=== PATIENT | male | born 1935 | race Caucasian/White ===

== ENCOUNTER 2016-08-18 09:17 | Inpatient (IN) | payer OTHER, MEDICARE ==
[~2016-08-18] VITALS: Ht 177.8 cm; Wt 117.0 kg
[~2016-08-18 09:17] MED LIST: ASPCH81 PO; CHOL100010 PO; FINA5TAB PO; PRAV20TA PO; PRED1SUS3 OPL
[2016-08-18] MEDS ORDERED: KETOROLAC TROMETHAMINE 30 MG/ML VIAL IV STA (10:03)
--- NOTE | 2016-08-18 10:08 | EMERGENCY ROOM VISIT NOTE ---
History Report prepared by Candi: Amaury Britt Under the Supervision of: Dr. Abdirahman Borrero M.D. First contact with patient: 09:56 Chief Complaint: BACK PAIN Stated Complaint: BACK PAIN History of Present Illness The patient is an 81 year old male who presents to the Emergency Room with complaints of persistent back pain for the past few weeks. The patient notes that the pain is in his lower back across both sides. This discomfort radiates down his right leg. The patient rates his discomfort as a 4 out of 10 in severity while he is resting. The discomfort is significantly worsened with movement. He notes that this morning he was using a heating pad and tried to stand up. When he did, his legs gave out and he fell down. He denies numbness, incontinence, constipation, chest pain, abdominal pain, feeling lightheaded or dizzy. The patient saw his PCP yesterday and was supposed to start therapy later this week. However, he presented to the ED today for further evaluation after his legs gave out this morning. Source of History: patient Onset: the past few weeks Position: back (lower) Symptom Intensity: 4/10 in severity Timing: other (persistent) Modifying Factors (Worsening): movement Associated Symptoms: No abdominal pain, No chest pain, No numbness Note: Other associated symptoms: radiation down right leg, fall Denies: incontinence, constipation, feeling lightheaded or dizzy Review of Systems See HPI for pertinent positives & negatives. A total of 10 systems reviewed and were otherwise negative. Past Medical & Surgical Medical Problems: (1) BPH (benign prostatic hyperplasia) (2) Compression fracture (3) Fall (4) HLD (hyperlipidemia) (5) Hypertension Surgical Problems: (1) H/O hernia repair (2) H/O vertebroplasty (3) History of total knee arthroplasty (4) Hx of cholecystectomy Family History No pertinent family history Social History Smoking Status: Never Smoker Drug Use: none Marital Status: Housing Status: lives alone Occupation Status: retired Current/Historical Medications Scheduled Aspirin (Aspirin Ec), 81 MG PO HS Cholecalciferol (Vitamin D3), 1 TAB PO DAILY Finasteride (Proscar), 5 MG PO HS Aemhvzmk-Bzjatzpidugv-Lsciilzt (Artificial Tears), 1 DROP OPB BID Ibuprofen Tab (Advil), 200-600 MG PO Q4H Metoprolol Tartrate (Lopressor) (Lopressor), 50 MG PO BID Multivitamin (Multivitamin), 1 TAB PO DAILY Pravastatin (Pravachol ), 20 MG PO HS Scheduled PRN Amoxicillin (Amoxil), 500 MG PO DAILY PRN for 4 TAB PRIOR TO DENTAL Allergies Coded Allergies: No Known Allergies (Verified , 08/18/16) Physical Exam Vital Signs Date Time Temp Pulse Resp B/P Pulse Ox O2 Delivery O2 Flow Rate FiO2 08/18/16 13:25 96 Room Air 08/18/16 13:10 71 16 176/74 08/18/16 11:11 73 16 177/92 96 08/18/16 09:38 69 08/18/16 09:28 36.8 71 16 182/84 96 Room Air Physical Exam General: Non ill-appearing older male, no acute distress. HEENT: Normal cephalic atraumatic. Pupils are equal round and reactive to light. Extraocular movements are intact. Oropharynx is pink with moist mucous membranes. No swelling of the mouth lips or tongue. Neck: Supple with a midline trachea. No meningeal signs or stiffness, no JVD or bruits. No Stridor. Chest: Clear to auscultation bilaterally. No wheezes or rhonchi. No increased work of breathing. Heart: regular rate and rhythm. Abdomen: Soft nontender, nondistended without rebound guarding or rigidity. Extremities: No cyanosis or clubbing. No calf tenderness or assymetry. Mild swelling and bruising of his right foot. Trace bilateral lower extremity edema Spine/Back. Tenderness to palpation along SI joint and lower spine. Skin: Good turgor without rashes. Neurologic exam: Cranial nerves two through 12 are intact. Motor and sensation are intact and symmetrical throughout. Medical Decision & Procedures ER Provider Diagnostic Interpretation: CT results as stated below per my review and radiologist interpretation: CT PELVIS NO IV/ORAL CONT (CT) CT DOSE: CLINICAL HISTORY: Pelvic and sacroiliac joint pain status post trauma TECHNIQUE: Helical images were acquired in the transverse plane area reformatted imaging was performed. COMPARISON STUDY: None. FINDINGS: There is sigmoid diverticulosis. There is no pathologic adenopathy. There is no free pelvic fluid. There is acute superior L5 compression fracture. There is 30% loss in height. There is minimal retropulsion. There is L3-4, L4-5, and L5-S1 spinal stenosis. There is no evidence of SI joint diastases. No SI joint fractures are visualized. No sacral fractures are visualized. No hip fractures are visualized. IMPRESSION: 1. Acute superior endplate L5 compression fracture with 30% loss in height and minimal retropulsion 2. No hip or sacral fractures identified Electronically signed by: Ranjeet Caballero M.D. 08/18/2016 11:20 AM Dictated Date/Time: 08/18/2016 11:[address] SCAN OF THE LUMBAR SPINE WITHOUT IV CONTRAST CLINICAL HISTORY: Fall with low back pain. COMPARISON STUDY: CT scan of the lumbar spine dated 05/17/2007. TECHNIQUE: CT scan of the lumbar spine is performed from the lower thoracic spine to the sacrum. Images reviewed in the axial, sagittal, and coronal planes. IV contrast was not administered for this examination. CT DOSE: 3051.01 mGy.cm FINDINGS: The skeletal structures are osteopenic. There is a mild acute superior endplate compression fracture of L5. Small fragments are retropulsed by up to 4 mm. This causes minimal acquired compromise of the central canal. Mild paravertebral edema is seen at this level. No additional acute fracture is seen. Vertebral body height is otherwise maintained throughout the lumbar spine. Alignment is preserved. A chronic compression deformity of T11 is partially imaged with evidence of previous vertebroplasty. The transverse and spinous processes are intact. There is no spondylolysis. Small anterior osteophytes are seen throughout. No lytic or blastic lesions are identified. There are likely chronic/healed left transverse process fractures of L1 and L2. There is mild degenerative disc space narrowing at L5-S1. The remaining disc spaces appear preserved. No large disc herniation is identified. Mild facet arthropathy is seen in the mid to lower lumbar region. The visualized sacrum and bony pelvis appear intact. Mild degenerative change and vacuum phenomenon is noted in the sacroiliac joints. There is mild fatty atrophy of the paraspinous musculature. Moderate atherosclerotic calcification is noted in the abdominal aorta. 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 This is similar to the 2007 examination. IMPRESSION: 1. There is a mild acute superior endplate compression fracture of L5. Small fragments are retropulsed by up to 4 mm. 2. No additional acute fracture is seen. 3. Osteopenia and mild spondylotic change as above. 4. A chronic compression deformity of T11 with evidence of previous vertebroplasty is noted. Dictated: 08/18/2016 11:23 AM Transcribed: 08/18/2016 11:33 AM Sofia Electronically signed by: Roger Neal M.D. 08/18/2016 11:39 AM Dictated Date/Time: 08/18/2016 11:23 AM Laboratory Results Test 08/18/16 10:20 08/18/16 10:45 Immature Granulocyte % (Auto) 1.1 % White Blood Count 12.77 K/uL (4.8-10.8) Red Blood Count 5.64 M/uL (4.7-6.1) Hemoglobin 16.2 g/dL (14.0-18.0) Hematocrit 46.9 % (42-52) Mean Corpuscular Volume 83.2 fL (80-100) Mean Corpuscular Hemoglobin 28.7 pg (25-34) Mean Corpuscular Hemoglobin Concent 34.5 g/dl (32-36) Platelet Count 177 K/uL (130-400) Mean Platelet Volume 9.7 fL (7.4-10.4) Neutrophils (%) (Auto) 72.2 % Lymphocytes (%) (Auto) 11.0 % Monocytes (%) (Auto) 13.2 % Eosinophils (%) (Auto) 2.0 % Basophils (%) (Auto) 0.5 % Neutrophils # (Auto) 9.23 K/uL (1.4-6.5) Lymphocytes # (Auto) 1.40 K/uL (1.2-3.4) Monocytes # (Auto) 1.69 K/uL (0.11-0.59) Eosinophils # (Auto) 0.25 K/uL (0-0.5) Basophils # (Auto) 0.06 K/uL (0-0.2) Immature Granulocyte # (Auto) 0.14 K/uL (0.00-0.02) Urine Color YELLOW Urine Appearance CLEAR (CLEAR) Urine pH 8.0 (4.5-7.5) Urine Specific [place] 1.017 (1.000-1.030) Urine Protein NEG (NEG) Urine Glucose (UA) NEG (NEG) Urine Ketones NEG (NEG) Urine Occult Blood NEG (NEG) Urine Nitrite NEG (NEG) Urine Bilirubin NEG (NEG) Urine Urobilinogen NEG (NEG) Urine Leukocyte Esterase NEG (NEG) Laboratory studies as stated above per my review. Medications Administered Medications (Trade) Dose Ordered Sig/Pat Route Start Time Stop Time Status Last Admin Dose Admin Ketorolac Tromethamine (Toradol Inj) 15 mg NOW STAT IV 08/18/16 10:03 08/18/16 10:06 DC 08/18/16 10:31 15 MG Ketorolac Tromethamine (Toradol Inj) 15 mg ONE STAT IV 08/18/16 12:38 08/18/16 12:40 DC 08/18/16 13:49 15 MG Oxycodone/ Acetaminophen (Percocet 5-325mg Tab) 1 tab Q4H PRN PO 08/18/16 13:15 09/01/16 13:14 08/19/16 08:39 1 TAB ECG Indication: other Rate (beats per minute): 69 Rhythm: normal sinus Findings: no acute ischemic change, no ectopy Change: no significant change (when compared to May 21, 2007) ED Course 0958: Past medical records reviewed. The patient was evaluated in room B11, and a complete history and physical examination were performed. 1003: Ordered Toradol Inj 15 mg IV. 1215: At this time, I reevaluated the patient. I updated the patient and discussed test findings with him. He was still having some discomfort. 1238: Ordered Toradol Inj 15 mg IV. 1247: At this time, I discussed the patient's case with Marta Swan PA-C - Hospitalist [facility] and she agreed to accept the patient for further evaluation. Medical Decision Differential diagnoses include lumbar disc disease, musculoskeletal. electrolyte or metabolic abnormality, or cauda equina syndrome. This patient comes in as described above. He was placed in room B 11. He is here for treatment and evaluation of back pain. He has had some back pain going on for a couple weeks however it got worse today when he got out of bed and his legs gave out and he fell. He has lower back pain. He has no neurologic deficits on my exam. He has no numbness or weakness in the buttocks area he has nothing to suggest cauda equina syndrome. No acute bowel or bladder problems. He has no fever or anything to suggest sepsis or infection. IV access was established and blood work was obtained. He has no significant electrolyte or metabolic abnormalities. CAT scan of the pelvis and lumbar spine do show a lower lumbar fracture acutely. It is a compression fracture. There is a small retropulsed fragments. While he was in the ER, he did receive Toradol 15 mg IV. He did receive a second dose of Toradol IV. He is comfortable at rest however when he sits up he does have severe pain. At this point, he is unable to care for himself due to pain. He has ambulatory dysfunction due to pain and I am also concerned with acute compression fracture with some retropulsion that he will need to be evaluated by the orthopedic spine as well prior to being discharged. I have consulted the [facility] and he saw him in ER and will admit him for these measures. Consults Time Called: 1238 Consulting Physician: Marta Swan PA-C - Hospitalist [facility] Returned Call: [phone] At this time, I discussed the patient's case with Marta Swan PA-C and she agreed to accept the patient for further evaluation. Impression Primary Impression: Compression fracture Additional Impression: Low back pain Scribe Attestation The scribe's documentation has been prepared under my direction and personally reviewed by me in its entirety. I confirm that the note above accurately reflects all work, treatment, procedures, and medical decision making performed by me. Departure Information Dispostion Being Evaluated By Hospitalist Referrals Booker Warren D.O. (PCP) Problem Qualifiers
[2016-08-18 10:32] LABS: BASO % 0.5 %; BASO ABS # 0.06 K/uL (0-0.2); COMPLETE YES; HEMATOCRIT 46.9 % (42-52); IG% 1.1 %; MEAN CELL VOLUME 83.2 fL (80-100); MEAN CORPUSCULAR HEMOGLOBIN 28.7 pg (25-34); MEAN CORPUSCULAR HGB CONC 34.5 g/dl (32-36); MEAN PLATELET VOLUME 9.7 fL (7.4-10.4); MONO % 13.2 %; NEUT % 72.2 %; PLATELET COUNT 177 K/uL (130-400); RED BLOOD COUNT 5.64 M/uL (4.7-6.1); WHITE BLOOD COUNT 12.77 K/uL (4.8-10.8)
[2016-08-18 10:52] LABS: BUN/CREATININE RATIO 22.8 (10-20); CALCIUM 9.1 mg/dl (8.5-10.1); CREATININE 0.58 mg/dl (0.60-1.40); POTASSIUM 4.1 mmol/L (3.5-5.1)
[2016-08-18 11:19] LABS: URINE APPEARANCE CLEAR (CLEAR); URINE BILIRUBIN NEG (NEG); URINE COLOR YELLOW; URINE NITRITE NEG (NEG); URINE SPECIFIC GRAVITY 1.017 (1.000-1.030); UROBILINOGEN NEG (NEG)
[2016-08-18 11:20] LABS: MANUAL MICROSCOPIC REQUIRED? NO; REVIEW REQ? NO
--- NOTE | 2016-08-18 11:23 | DIAGNOSTIC IMAGING REPORT ---
CT PELVIS NO IV/ORAL CONT (CT) CT DOSE: CLINICAL HISTORY: Pelvic and sacroiliac joint pain status post trauma TECHNIQUE: Helical images were acquired in the transverse plane area reformatted imaging was performed. COMPARISON STUDY: None. FINDINGS: There is sigmoid diverticulosis. There is no pathologic adenopathy. There is no free pelvic fluid. There is acute superior L5 compression fracture. There is 30% loss in height. There is minimal retropulsion. There is L3-4, L4-5, and L5-S1 spinal stenosis. There is no evidence of SI joint diastases. No SI joint fractures are visualized. No sacral fractures are visualized. No hip fractures are visualized. IMPRESSION: 1. Acute superior endplate L5 compression fracture with 30% loss in height and minimal retropulsion 2. No hip or sacral fractures identified Electronically signed by: Ranjeet Caballero M.D. 08/18/2016 11:20 AM Dictated Date/Time: 08/18/2016 11:15 AM
--- NOTE | 2016-08-18 11:34 | DIAGNOSTIC IMAGING REPORT ---
CT SCAN OF THE LUMBAR SPINE WITHOUT IV CONTRAST CLINICAL HISTORY: Fall with low back pain. COMPARISON STUDY: CT scan of the lumbar spine dated 05/17/2007. TECHNIQUE: CT scan of the lumbar spine is performed from the lower thoracic spine to the sacrum. Images reviewed in the axial, sagittal, and coronal planes. IV contrast was not administered for this examination. CT DOSE: 3051.01 mGy.cm FINDINGS: The skeletal structures are osteopenic. There is a mild acute superior endplate compression fracture of L5. Small fragments are retropulsed by up to 4 mm. This causes minimal acquired compromise of the central canal. Mild paravertebral edema is seen at this level. No additional acute fracture is seen. Vertebral body height is otherwise maintained throughout the lumbar spine. Alignment is preserved. A chronic compression deformity of T11 is partially imaged with evidence of previous vertebroplasty. The transverse and spinous processes are intact. There is no spondylolysis. Small anterior osteophytes are seen throughout. No lytic or blastic lesions are identified. There are likely chronic/healed left transverse process fractures of L1 and L2. There is mild degenerative disc space narrowing at L5-S1. The remaining disc spaces appear preserved. No large disc herniation is identified. Mild facet arthropathy is seen in the mid to lower lumbar region. The visualized sacrum and bony pelvis appear intact. Mild degenerative change and vacuum phenomenon is noted in the sacroiliac joints. There is mild fatty atrophy of the paraspinous musculature. Moderate atherosclerotic calcification is noted in the abdominal aorta. 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 This is similar to the 2007 examination. IMPRESSION: 1. There is a mild acute superior endplate compression fracture of L5. Small fragments are retropulsed by up to 4 mm. 2. No additional acute fracture is seen. 3. Osteopenia and mild spondylotic change as above. 4. A chronic compression deformity of T11 with evidence of previous vertebroplasty is noted. Dictated: 08/18/2016 11:23 AM Transcribed: 08/18/2016 11:33 AM Sofia Electronically signed by: Roger Neal M.D. 08/18/2016 11:39 AM Dictated Date/Time: 08/18/2016 11:23 AM
[2016-08-18] MEDS ORDERED: KETOROLAC TROMETHAMINE 15 MG/ML VIAL IV STA (12:38)
[2016-08-18] MEDS ORDERED: ACETAMINOPHEN 325 MG TAB PO PRN (13:00)
[2016-08-18] MEDS ORDERED: MAGNESIUM HYDROXIDE SUSP 30 ML UDC PO PRN (13:00)
[2016-08-18] MEDS ORDERED: ONDANSETRON INJ 2 MG/ML 2 ML VIAL IV PRN (13:00)
[2016-08-18 13:25] VITALS: O2SAT 96; Ht 177.8 cm; Wt 117.0 kg
[2016-08-18] MEDS ORDERED: POLYETHYLENE (MIRALAX) 17 GM PACK PO PRN (13:30)
[2016-08-18] MEDS ORDERED: IV FLUIDS COMPLETED PRN (13:45)
[2016-08-18] MEDS ORDERED: KETOROLAC TROMETHAMINE 30 MG/ML VIAL ONE (13:46)
[2016-08-18 14:07] VITALS: O2SAT 18
--- NOTE | 2016-08-18 14:08 | History and Physical ---
History & Physical Date & Time of Service: Aug 18, 2016 at 13:47 Chief Complaint: Back Pain Primary Care Physician: Booker Warren D.O. History of Present Illness Source: patient, clinic records, hospital records Patient seen and examined. 81 year old male with PMHx of BPH, HTN, and HLD presents to the ED following a fall prior to arrival. Patient reports he has been having low back pain with radiation into the right leg for the past several weeks. He saw his PCP for this at the beginning of the month and was treated with a prednisone taper. He returned yesterday because of continued pain and is scheduled for an MRI on 08/21. He states today he was sitting in his chair using a heating pad on his back. When he stood up he felt his legs go out from under him and landed on his buttocks. He reports he was able to get up on his own and called 911 and came to the ED for further evaluation. He reports he has sharp 5/10 low back pain but that it is not different than the pain he had prior to his fall. He reports ecchymosis to the right dorsal aspect of the foot that is new since the fall, but denies pain in the area. He denies fevers, chills, dizziness, lightheadedness, head trauma, LOC, saddle anesthesia, bowel or bladder incontinence/retention, chest pain, SOB, nausea, vomiting, diarrhea, calf pain. In the ED BP is elevated, otherwise VS are stable, lab work is unremarkable. CT L spine shows acute L5 compression fracture. He received Toradol. He will be observed for further workup and treatment. Past Medical/Surgical History Medical Problems: (1) BPH (benign prostatic hyperplasia) Status: Chronic (2) HLD (hyperlipidemia) Status: Chronic (3) Hypertension Status: Chronic Surgical Problems: (1) H/O hernia repair Status: Chronic (2) H/O vertebroplasty Permanent Comment: T-, 05/20/07 Status: Chronic (3) History of total knee arthroplasty Status: Chronic (4) Hx of cholecystectomy Status: Resolved Family History FH: heart disease Hypertension Social History Smoking Status: Never Smoker Alcohol Use: none Marital Status: Housing status: lives alone Occupational Status: retired Immunizations History of Influenza Vaccine: N/A Influenza Vaccine Date: Feb 15, 2008 History of Tetanus Vaccine?: Yes History of Pneumococcal: Yes Pneumococcal Date: May 17, 2005 History of Hepatitis B Vaccine: Unknown Multi-Drug Resistant Organisms History of MDRO: No Allergies Coded Allergies: No Known Allergies (Verified , 08/18/16) Home Medications Scheduled Aspirin (Aspirin Ec), 81 MG PO HS Cholecalciferol (Vitamin D3), 1 TAB PO DAILY Finasteride (Proscar), 5 MG PO HS Pcljaske-Iqoysxxdwvid-Vsktirvv (Artificial Tears), 1 DROP OPB BID Ibuprofen Tab (Advil), 200-600 MG PO Q4H Metoprolol Tartrate (Lopressor) (Lopressor), 50 MG PO BID Multivitamin (Multivitamin), 1 TAB PO DAILY Pravastatin (Pravachol ), 20 MG PO HS Scheduled PRN Amoxicillin (Amoxil), 500 MG PO DAILY PRN for 4 TAB PRIOR TO DENTAL Review of Systems See above for pertinent positives & negatives. A total of 10 systems reviewed and were otherwise negative. Physical Exam Vital Signs Date Time Temp Pulse Resp B/P Pulse Ox O2 Delivery O2 Flow Rate FiO2 08/18/16 11:11 73 16 177/92 96 08/18/16 09:38 69 08/18/16 09:28 36.8 71 16 182/84 96 Room Air General Appearance: + pertinent finding (Pleasant WD/WN 81 year old male lying in bed in NAD ) Head: normocephalic, atraumatic Eyes: PERRL, EOMI, sclerae normal ENT: hearing grossly normal, pharynx normal Neck: supple, no JVD Respiratory/Chest: chest non-tender, lungs clear, normal breath sounds, no respiratory distress, no accessory muscle use Cardiovascular: regular rate, rhythm, no gallop, no JVD, no murmur, normal peripheral pulses Abdomen/GI: normal bowel sounds, non tender, soft (obese) Back: normal inspection, no muscle spasm, + paravertebral tenderness (L spine ) Extremities/Musculoskelatal: no calf tenderness, normal capillary refill, + pedal edema, + pertinent finding (Ecchymosis to right doral foot, nontender, good pulses ) Neurologic/Psych: no motor/sensory deficits, alert, oriented x 3, + pertinent finding Skin: normal color, warm/dry, no rash Lymphatic: no adenopathy Diagnostics Laboratory Results Results Past 24 Hours Test 08/18/16 10:20 08/18/16 10:45 Range/Units White Blood Count 12.77 4.8-10.8 K/uL Red Blood Count 5.64 4.7-6.1 M/uL Hemoglobin 16.2 14.0-18.0 g/dL Hematocrit 46.9 42-52 % Mean Corpuscular Volume 83.2 80-100 fL Mean Corpuscular Hemoglobin 28.7 25-34 pg Mean Corpuscular Hemoglobin Concent 34.5 32-36 g/dl Platelet Count 177 130-400 K/uL Mean Platelet Volume 9.7 7.4-10.4 fL Neutrophils (%) (Auto) 72.2 % Lymphocytes (%) (Auto) 11.0 % Monocytes (%) (Auto) 13.2 % Eosinophils (%) (Auto) 2.0 % Basophils (%) (Auto) 0.5 % Neutrophils # (Auto) 9.23 1.4-6.5 K/uL Lymphocytes # (Auto) 1.40 1.2-3.4 K/uL Monocytes # (Auto) 1.69 0.11-0.59 K/uL Eosinophils # (Auto) 0.25 0-0.5 K/uL Basophils # (Auto) 0.06 0-0.2 K/uL RDW Standard Deviation 42.0 36.4-46.3 fL RDW Coefficient of Variation 13.8 11.5-14.5 % Immature Granulocyte % (Auto) 1.1 % Immature Granulocyte # (Auto) 0.14 0.00-0.02 K/uL Sodium Level 141 136-145 mmol/L Potassium Level 4.1 3.5-5.1 mmol/L Chloride Level 106 98-107 mmol/L Carbon Dioxide Level 29 21-32 mmol/L Anion Gap 6.0 3-11 mmol/L Blood Urea Nitrogen 13 7-18 mg/dl Creatinine 0.58 0.60-1.40 mg/dl Est Creatinine Clear Calc Drug Dose 125.8 ml/min Estimated GFR () 110.0 Estimated GFR (Non- 94.9 BUN/Creatinine Ratio 22.8 10-20 Random Glucose 98 70-99 mg/dl Calcium Level 9.1 8.5-10.1 mg/dl Urine Color YELLOW Urine Appearance CLEAR CLEAR Urine pH 8.0 4.5-7.5 Urine Specific [place] 1.017 1.000-1.030 Urine Protein NEG NEG Urine Glucose (UA) NEG NEG Urine Ketones NEG NEG Urine Occult Blood NEG NEG Urine Nitrite NEG NEG Urine Bilirubin NEG NEG Urine Urobilinogen NEG NEG Urine Leukocyte Esterase NEG NEG Microbiology Results 08/18/16 Urine Culture, Received Pending Diagnostic Radiology L SPINE CT Per radiologist read: IMPRESSION: 1. There is a mild acute superior endplate compression fracture of L5. Small fragments are retropulsed by up to 4 mm. 2. No additional acute fracture is seen. 3. Osteopenia and mild spondylotic change as above. 4. A chronic compression deformity of T11 with evidence of previous vertebroplasty is noted. PELVIC CT Per radiologist read: IMPRESSION: 1. Acute superior endplate L5 compression fracture with 30% loss in height and minimal retropulsion 2. No hip or sacral fractures identified EKG NSR 69 BPM, QTc 411 Impression Assessment and Plan 81 year old male presents to the ED following fall prior to arrival. Patient reports 3 weeks of low back pain, unchanged following fall. CT shows acute L5 compression fracture L5 COMPRESSION FRACTURE -Observation in med/surg -no neurologic deficits -Pain control with Percocet prn - can escalate to IV narcotics if needed however patient is naive to pain medications so will start with po -PT/OT eval -discharge planning -CBC, PRP in AM MECHANICAL FALL -PT/OT eval -[facility] Hand consult for discharge planning -Right foot ecchymosis - XR pending HTN -uncontrolled -? secondary to pain was 133/66 at PCP office yesterday -Continue BB -pain control as above HLD -continue Statin BPH -continue Proscar DVT PROPHYLAXIS: SCDs CODE STATUS: FULL CODE DISPO:observation pending further workup Patient seen in collaboration with Dr. Deepika Baca VTE Prophylaxis VTE Risk Assessment Done? Y/N: Yes Risk Level: High
[2016-08-18] MEDS ORDERED: MoRPHine SULFATE 2 MG/ML CARP IV PRN (14:15)
[2016-08-18 14:20] VITALS: BP 159/78; PULSE 72; TEMP 36.5; O2SAT 93
--- NOTE | 2016-08-18 14:28 | Progress Note ---
Progress Note Date of Service Aug 18, 2016. Progress Note Patient seen and examined with BRITNEY Patel. Patient . 81 year old male with PMHx of BPH, HTN, and HLD presents to the ED following a fall prior to arrival. Patient reports he has been having low back pain with radiation into the right leg for the past several weeks. He saw his PCP for this at the beginning of the month and was treated with a prednisone taper. He returned yesterday because of continued pain and is scheduled for an MRI on 08/21. He states today he was sitting in his chair using a heating pad on his back. When he stood up he felt his legs go out from under him and landed on his buttocks. He reports he was able to get up on his own and called 911 and came to the ED for further evaluation. He reports he has sharp 5/10 low back pain but that it is not different than the pain he had prior to his fall. He reports ecchymosis to the right dorsal aspect of the foot that is new since the fall, but denies pain in the area. He denies fevers, chills, dizziness, lightheadedness, head trauma, LOC, saddle anesthesia, bowel or bladder incontinence/retention, chest pain, SOB, nausea, vomiting, diarrhea, calf pain. EXAM: Vitals- BP 177/92, slightly elevated Gen- AAOX3, obese, Mild distress secondary to pain Neck- No JVD Lungs- AEBE, no wheezing, rhonchi Heart- S1, S2 normal Ext- B/L pedal edema Neuro- AAOX3, 5/5 all extremities, No sensory deficits, no urinary bladder incontinence Lab work is unremarkable except mild WBC 12k. CT L spine shows acute L5 compression fracture. A/P: 1. ACUTE ON CHRONIC BACK PAIN, SECONDARY TO ACUTE L5 COMPRESSION FRACTURE Hx of chronic back pain with radiculopathy, rxed few weeks ago with prednisone taper by PCP, scheduled for MRI on 08/21/16. -CT - new L5 compression fracture with old compression fracture -Pain management- Percocet PRN for moderate pain, IV Toradol q 6 hours PRN for severe pain. (Monitor creatinine- would prefer over morphine due to anti inflammatory action) -May consider lumbar brace if unstable with ambulation -PT/OT ordered 2. HTN- Slightly elevated, likely secondary to pain -Continue with home meds -Monitor 3. BPH 4. DVT PROPHYLAXIS DISPOSITION Observation med-surg Agree with A/P of BRITNEY Leslie
[2016-08-18] MEDS ORDERED: KETOROLAC TROMETHAMINE 15 MG/ML VIAL IV. PRN (14:30)
[2016-08-18 15:19] VITALS: BP 161/78; PULSE 81; TEMP 36.9; O2SAT 94
[2016-08-18] MEDS: OXYCODONE/ACETAMINOPHEN 5-325 TAB PO PRN (16:41)
--- NOTE | 2016-08-18 17:14 | DIAGNOSTIC IMAGING REPORT ---
FOOT MIN 3 VIEWS ROUTINE CLINICAL HISTORY: Right foot pain following fall. Evaluate for fracture. COMPARISON: None FINDINGS: The tarsometatarsal joints are intact. Evaluation of the toes is difficult due to chronic deformity. However, no acute fracture is identified. 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 IMPRESSION: No acute fracture or dislocation within the right foot. Evaluation of the toes is difficult due to chronic deformity. Electronically signed by: Brad Hinson M.D. 08/18/2016 5:12 PM Dictated Date/Time: 08/18/2016 5:10 PM
[2016-08-18] MEDS: ARTIFICIAL TEARS OP SOLN OP SCH ×2 (20:59)
[2016-08-18 21:02] VITALS: BP 130/74; PULSE 88
[2016-08-18] MEDS: ASPIRIN 81 MG ECTAB PO SCH (21:04)
[2016-08-18] MEDS: FINASTERIDE 5 MG TAB PO SCH (21:04)
[2016-08-18] MEDS: PRAVASTATIN SOD 20 MG TAB PO SCH (21:04)
[2016-08-18] MEDS: METOPROLOL TARTRATE 50 MG TAB PO SCH (21:05)
[2016-08-18] MEDS: KETOROLAC TROMETHAMINE 15 MG/ML VIAL IV. PRN (21:56)
[2016-08-18] MEDS ORDERED: SODIUM CHLORIDE 0.9% 250ML 250 ML IV SCH (22:00)
[2016-08-18 22:51] VITALS: BP 124/74; PULSE 80; TEMP 36.9; O2SAT 91
--- NOTE | 2016-08-18 22:51 | DIAGNOSTIC IMAGING REPORT ---
BILATERAL LOWER EXTREMITY VENOUS DOPPLER HISTORY: Bilateral lower extremity pain, edema COMPARISON STUDY: None. FINDINGS: There is normal compressibility, flow, and augmentation within the bilateral lower extremity deep venous systems. IMPRESSION: No DVT within the right or left lower extremity. Electronically signed by: [place] M.D. 08/18/2016 10:49 PM Dictated Date/Time: 08/18/2016 10:49 PM
[2016-08-19] MEDS: KETOROLAC TROMETHAMINE 15 MG/ML VIAL IV. PRN (05:42)
[2016-08-19 06:30] LABS: HEMATOCRIT 45.7 % (42-52); MEAN CELL VOLUME 83.2 fL (80-100); MEAN CORPUSCULAR HEMOGLOBIN 27.7 pg (25-34); MEAN CORPUSCULAR HGB CONC 33.3 g/dl (32-36); MEAN PLATELET VOLUME 9.8 fL (7.4-10.4); PLATELET COUNT 173 K/uL (130-400); RED BLOOD COUNT 5.49 M/uL (4.7-6.1); WHITE BLOOD COUNT 13.19 K/uL (4.8-10.8)
[2016-08-19 06:59] LABS: BUN/CREATININE RATIO 20.4 (10-20); CALCIUM 8.8 mg/dl (8.5-10.1); CREATININE 0.62 mg/dl (0.60-1.40); POTASSIUM 3.8 mmol/L (3.5-5.1)
[2016-08-19 07:10] VITALS: BP 166/80; PULSE 79; TEMP 36.9; O2SAT 92
[2016-08-19] MEDS: OXYCODONE/ACETAMINOPHEN 5-325 TAB PO PRN ×2 (08:39→21:36)
[2016-08-19] MEDS: CHOLECALCIFEROL 1000 INTER.UNIT TAB PO SCH (08:39)
[2016-08-19] MEDS: MULTIVITAMIN TAB PO SCH (08:39)
[2016-08-19] MEDS: ARTIFICIAL TEARS OP SOLN OP SCH ×4 (08:40→21:24)
[2016-08-19] MEDS: METOPROLOL TARTRATE 50 MG TAB PO SCH ×2 (08:40→21:28)
[2016-08-19 15:08] VITALS: BP 113/70; PULSE 76; TEMP 36.9; O2SAT 94
--- NOTE | 2016-08-19 17:54 | Progress Note ---
Subjective Date of Service: Aug 19, 2016. Subjective Pt evaluation today including: conversation w/ patient, physical exam, lab review, review of studies, review of inpatient medication list Saw/examined the patient in room 353 He states he presented due to severe low back pain with radiation to the lower extremities (R>L) States he had a fall last week No urinary or bowel incontinence, no other symptoms Ambulated well with PT, with no complications Problem List Medical Problems: (1) Low back pain Status: Acute Review of Systems Respiratory: No shortness of breath Cardiac: No chest pain Abdomen: No diarrhea, No nausea, No pain, No vomiting Musculoskeletal: + joint pain (low back pain) Male : No incontinence, No urinary frequency Heme: No abnormal bleeding/bruising Medications Current Inpatient Medications Medications (Trade) Dose Ordered Sig/Pat Route Start Time Stop Time Status Last Admin Dose Admin Aspirin (Ecotrin Tab) 81 mg HS PO 08/18/16 21:00 09/17/16 20:59 08/18/16 21:04 81 MG Cholecalciferol (Vitamin D Tab) 1,000 inter.unit DAILY PO 08/19/16 09:00 09/18/16 08:59 08/19/16 08:39 1,000 INTER.UNIT Finasteride (Proscar Tab) 5 mg HS PO 08/18/16 21:00 09/17/16 20:59 08/18/16 21:04 5 MG Metoprolol Tartrate (Lopressor Tab) 50 mg BID PO 08/18/16 21:00 09/17/16 20:59 08/19/16 08:40 50 MG Multivitamins (Multivitamin Tab) 1 tab DAILY PO 08/19/16 09:00 09/18/16 08:59 08/19/16 08:39 1 TAB Pravastatin Sodium (Pravachol Tab) 20 mg HS PO 08/18/16 21:00 09/17/16 20:59 08/18/16 21:04 20 MG Artificial Tears (Artificial Tears) 1 drops BID OP 08/18/16 21:00 09/17/16 20:59 08/19/16 08:40 1 DROPS Acetaminophen (Tylenol Tab) 650 mg Q4H PRN PO 08/18/16 13:00 09/17/16 12:59 Magnesium Hydroxide (Milk Of Magnesia Susp) 30 ml Q6H PRN PO 08/18/16 13:00 09/17/16 12:59 Polyethylene (Miralax Powder Packet) 17 gm DAILY PRN PO 08/18/16 13:30 09/17/16 13:29 Ondansetron HCl (Zofran Inj) 4 mg Q6H PRN IV 08/18/16 13:00 09/17/16 12:59 Oxycodone/ Acetaminophen (Percocet 5-325mg Tab) 1 tab Q4H PRN PO 08/18/16 13:15 09/01/16 13:14 08/19/16 08:39 1 TAB Miscellaneous (Iv Fluids Completed) 1 ea PRN PRN N/A 08/18/16 13:45 08/18/17 13:44 Ketorolac Tromethamine (Toradol Inj) 15 mg Q6H PRN IV. 08/18/16 20:30 08/23/16 20:29 08/19/16 05:42 15 MG Objective Vital Signs Date Time Temp Pulse Resp B/P Pulse Ox O2 Delivery O2 Flow Rate FiO2 08/19/16 15:08 36.9 76 16 113/70 94 Room Air 08/19/16 08:45 Room Air 08/19/16 07:10 36.9 79 20 166/80 92 Room Air 08/18/16 23:30 Room Air 08/18/16 22:51 36.9 80 16 124/74 91 Room Air 08/18/16 21:02 88 130/74 08/18/16 17:55 Room Air Physical Exam General Appearance: no apparent distress, + obese Respiratory/Chest: lungs clear, normal breath sounds, no respiratory distress, no accessory muscle use Cardiovascular: regular rate, rhythm, no edema, no murmur Extremities: + pertinent finding (back pain; some drainage at the lower back noted, dressed; painful ROM, some pain behind R knee) Laboratory Results Last 24 Hours Test 08/19/16 05:56 White Blood Count 13.19 K/uL Red Blood Count 5.49 M/uL Hemoglobin 15.2 g/dL Hematocrit 45.7 % Mean Corpuscular Volume 83.2 fL Mean Corpuscular Hemoglobin 27.7 pg Mean Corpuscular Hemoglobin Concent 33.3 g/dl RDW Standard Deviation 42.4 fL RDW Coefficient of Variation 13.8 % Platelet Count 173 K/uL Mean Platelet Volume 9.8 fL Sodium Level 139 mmol/L Potassium Level 3.8 mmol/L Chloride Level 104 mmol/L Carbon Dioxide Level 30 mmol/L Anion Gap 5.0 mmol/L Blood Urea Nitrogen 13 mg/dl Creatinine 0.62 mg/dl Est Creatinine Clear Calc Drug Dose 117.7 ml/min Estimated GFR () 107.1 Estimated GFR (Non- 92.4 BUN/Creatinine Ratio 20.4 Random Glucose 105 mg/dl Calcium Level 8.8 mg/dl Assessment and Plan This is an 81 year old male with PMH of HTN, HLD, BPH, previous T11 fracture s/ p vertebroplasty in 2007 presents with low back pain and subsequently found to have compression fracture of L5 Low Back Pain secondary to Acute Compression Fracture of L5 CT shows acute compression fracture of L5 with some retropulsion plan is to control pain with medications, currently on IV Toradol and IV morphine as needed PT/OT may need placement vs. home health possible TLSO brace pain improved, ambulation improvement HTN BP stable, continue home medications HLD continue statin DVT ppx SCDs FULL CODE
[2016-08-19] MEDS: PRAVASTATIN SOD 20 MG TAB PO SCH (21:25)
[2016-08-19] MEDS: ASPIRIN 81 MG ECTAB PO SCH (21:25)
[2016-08-19 21:27] VITALS: BP 147/73; PULSE 94
[2016-08-19] MEDS: FINASTERIDE 5 MG TAB PO SCH (21:28)
[2016-08-19 23:01] VITALS: BP 143/73; PULSE 85; TEMP 36.9; O2SAT 92
[2016-08-20 05:22] LABS: HEMATOCRIT 45.4 % (42-52); MEAN CELL VOLUME 83.3 fL (80-100); MEAN CORPUSCULAR HEMOGLOBIN 27.2 pg (25-34); MEAN CORPUSCULAR HGB CONC 32.6 g/dl (32-36); MEAN PLATELET VOLUME 9.6 fL (7.4-10.4); PLATELET COUNT 178 K/uL (130-400); RED BLOOD COUNT 5.45 M/uL (4.7-6.1); WHITE BLOOD COUNT 14.28 K/uL (4.8-10.8)
[2016-08-20 05:46] LABS: BUN/CREATININE RATIO 27.7 (10-20); CALCIUM 8.7 mg/dl (8.5-10.1); CREATININE 0.57 mg/dl (0.60-1.40); POTASSIUM 3.9 mmol/L (3.5-5.1)
[2016-08-20 07:25] VITALS: BP 157/79; PULSE 77; TEMP 36.7; O2SAT 93
[2016-08-20] MEDS: OXYCODONE/ACETAMINOPHEN 5-325 TAB PO PRN ×2 (08:36→17:01)
[2016-08-20] MEDS: MULTIVITAMIN TAB PO SCH (08:37)
[2016-08-20] MEDS: CHOLECALCIFEROL 1000 INTER.UNIT TAB PO SCH (08:37)
[2016-08-20] MEDS: METOPROLOL TARTRATE 50 MG TAB PO SCH (08:38)
[2016-08-20] MEDS: ARTIFICIAL TEARS OP SOLN OP SCH ×2 (09:34)
--- NOTE | 2016-08-20 13:09 | Progress Note ---
Subjective Date of Service: Aug 20, 2016. Subjective Pt evaluation today including: conversation w/ patient, physical exam, lab review, review of studies, review of inpatient medication list Saw/examined the patient in room 353 He is doing okay, pain is controlled, ambulating okay Eager to get to rehab and then get home Problem List Medical Problems: (1) Low back pain Status: Acute Review of Systems Constitutional: No chills, No fever Respiratory: No cough, No shortness of breath, No sputum Cardiac: No chest pain Musculoskeletal: + joint pain (low back pain), + problem reported (R LE weakness) Medications Current Inpatient Medications Medications (Trade) Dose Ordered Sig/Pat Route Start Time Stop Time Status Last Admin Dose Admin Aspirin (Ecotrin Tab) 81 mg HS PO 08/18/16 21:00 09/17/16 20:59 08/19/16 21:25 81 MG Cholecalciferol (Vitamin D Tab) 1,000 inter.unit DAILY PO 08/19/16 09:00 09/18/16 08:59 08/20/16 08:37 1,000 INTER.UNIT Finasteride (Proscar Tab) 5 mg HS PO 08/18/16 21:00 09/17/16 20:59 08/19/16 21:28 5 MG Metoprolol Tartrate (Lopressor Tab) 50 mg BID PO 08/18/16 21:00 09/17/16 20:59 08/20/16 08:38 50 MG Multivitamins (Multivitamin Tab) 1 tab DAILY PO 08/19/16 09:00 09/18/16 08:59 08/20/16 08:37 1 TAB Pravastatin Sodium (Pravachol Tab) 20 mg HS PO 08/18/16 21:00 09/17/16 20:59 08/19/16 21:25 20 MG Artificial Tears (Artificial Tears) 1 drops BID OP 08/18/16 21:00 09/17/16 20:59 08/20/16 09:34 1 DROPS Acetaminophen (Tylenol Tab) 650 mg Q4H PRN PO 08/18/16 13:00 09/17/16 12:59 Magnesium Hydroxide (Milk Of Magnesia Susp) 30 ml Q6H PRN PO 08/18/16 13:00 09/17/16 12:59 Polyethylene (Miralax Powder Packet) 17 gm DAILY PRN PO 08/18/16 13:30 09/17/16 13:29 Ondansetron HCl (Zofran Inj) 4 mg Q6H PRN IV 08/18/16 13:00 09/17/16 12:59 Oxycodone/ Acetaminophen (Percocet 5-325mg Tab) 1 tab Q4H PRN PO 08/18/16 13:15 09/01/16 13:14 08/20/16 08:36 1 TAB Miscellaneous (Iv Fluids Completed) 1 ea PRN PRN N/A 08/18/16 13:45 08/18/17 13:44 Ketorolac Tromethamine (Toradol Inj) 15 mg Q6H PRN IV. 08/18/16 20:30 08/23/16 20:29 08/19/16 05:42 15 MG Objective Vital Signs Date Time Temp Pulse Resp B/P Pulse Ox O2 Delivery O2 Flow Rate FiO2 08/20/16 07:25 36.7 77 18 157/79 93 Room Air 08/19/16 23:45 Room Air 08/19/16 23:01 36.9 85 16 143/73 92 Room Air 08/19/16 21:27 94 147/73 08/19/16 15:45 Room Air 08/19/16 15:08 36.9 76 16 113/70 94 Room Air Physical Exam General Appearance: no apparent distress Respiratory/Chest: lungs clear, normal breath sounds, no respiratory distress, no accessory muscle use Cardiovascular: regular rate, rhythm, no edema, no murmur Extremities: normal inspection, no pedal edema Laboratory Results Last 24 Hours Test 08/20/16 05:00 White Blood Count 14.28 K/uL Red Blood Count 5.45 M/uL Hemoglobin 14.8 g/dL Hematocrit 45.4 % Mean Corpuscular Volume 83.3 fL Mean Corpuscular Hemoglobin 27.2 pg Mean Corpuscular Hemoglobin Concent 32.6 g/dl RDW Standard Deviation 41.7 fL RDW Coefficient of Variation 13.8 % Platelet Count 178 K/uL Mean Platelet Volume 9.6 fL Sodium Level 141 mmol/L Potassium Level 3.9 mmol/L Chloride Level 106 mmol/L Carbon Dioxide Level 30 mmol/L Anion Gap 5.0 mmol/L Blood Urea Nitrogen 16 mg/dl Creatinine 0.57 mg/dl Est Creatinine Clear Calc Drug Dose 128.0 ml/min Estimated GFR () 110.8 Estimated GFR (Non- 95.6 BUN/Creatinine Ratio 27.7 Random Glucose 105 mg/dl Calcium Level 8.7 mg/dl Assessment and Plan This is an 81 year old male with PMH of HTN, HLD, BPH, previous T11 fracture s/ p vertebroplasty in 2007 presents with low back pain and subsequently found to have compression fracture of L5 Low Back Pain secondary to Acute Compression Fracture of L5 08/20 Doing well while in patient will d/c to [facility] today for rehab will d/c with percocet PRN for pain 08/19 CT shows acute compression fracture of L5 with some retropulsion plan is to control pain with medications, currently on IV Toradol and IV morphine as needed PT/OT may need placement vs. home health possible TLSO brace pain improved, ambulation improvement HTN BP stable, continue home medications HLD continue statin DVT ppx SCDs FULL CODE
[2016-08-20] MEDS ORDERED: OXYC-57 PO (13:12)
--- NOTE | 2016-08-20 13:15 | Discharge Instructions ---
Discharge Instructions Date of Service Aug 20, 2016. Admission Reason for Admission: Compression Fracture, Fall Discharge Discharge Diagnosis / Problem: S/p fall, and Acute compression fracture Discharge Goals Goal(s): Decrease discomfort, Improve function, Diagnostic testing, Therapeutic intervention Activity Recommendations Activity Limitations: resume your previous activity . Instructions / Follow-Up Instructions / Follow-Up Patient should follow-up with primary care physician after stay at [facility] Diet Patient's current hospital diet: Low Sodium Diet (2gm Na), AHA Diet (Heart Healthy) Discharge Diet Recommended Diet: AHA Diet (Heart Healthy), Low Sodium Diet (2gm Na) Pending Studies Studies pending at discharge: no Medical Emergencies . Who to Call and When: Medical Emergencies: If at any time you feel your situation is an emergency, please call 911 immediately. . Non-Emergent Contact Non-Emergency issues call your: Primary Care Provider . . "Provider Documentation" section prepared by Don Marion. . VTE Core Measure Inpt VTE Proph given/why not?: SCD's [place] Drug Monitoring Program Search Results: patient reviewed within database, no issues identified
--- NOTE | 2016-08-20 13:16 | Discharge Summary ---
Discharge Summary Date of Service Aug 20, 2016. Discharge Summary Admission Date: Aug 19, 2016 at 17:37 Discharge Date: Aug 20, 2016 Discharge Disposition: Rehab Principal Diagnosis: s/p fall and Acute compression fracture L5 Medication Reconciliation New Medications: Oxycodone/Acetaminophen 5MG/325MG (Percocet 5MG/325MG) Tab 1 TAB PO Q4H PRN for MODERATE-SEVERE PAIN for 5 Days, #30 TAB PAIN Continued Medications: Amoxicillin (Amoxil) 500 Mg Cap 500 MG PO DAILY PRN for 4 TAB PRIOR TO DENTAL, #21 CAP Aspirin (Aspirin Ec) 81 Mg Tab 81 MG PO HS Cholecalciferol (Vitamin D3) 1,000 Unit Tab 1 TAB PO DAILY for 90 Days, #90 TAB 3 Refills Finasteride (Proscar) 5 Mg Tab 5 MG PO HS, 0 Refills Yltvqhtl-Ammvwsoujnip-Jswlnbbz (Artificial Tears) 1 [place] 1 DROP OPB BID Ibuprofen Tab (Advil) 200 Mg Tab 200-600 MG PO Q4H, TAB Metoprolol Tartrate (Lopressor) (Lopressor) 50 Mg Tab 50 MG PO BID, TAB Multivitamin (Multivitamin) Tab 1 TAB PO DAILY, 0 Refills Pravastatin (Pravachol ) 20 Mg Tab 20 MG PO HS, 0 Refills Admission Information HPI (per Admitting provider): Patient seen and examined. 81 year old male with PMHx of BPH, HTN, and HLD presents to the ED following a fall prior to arrival. Patient reports he has been having low back pain with radiation into the right leg for the past several weeks. He saw his PCP for this at the beginning of the month and was treated with a prednisone taper. He returned yesterday because of continued pain and is scheduled for an MRI on 08/21. He states today he was sitting in his chair using a heating pad on his back. When he stood up he felt his legs go out from under him and landed on his buttocks. He reports he was able to get up on his own and called 911 and came to the ED for further evaluation. He reports he has sharp 5/10 low back pain but that it is not different than the pain he had prior to his fall. He reports ecchymosis to the right dorsal aspect of the foot that is new since the fall, but denies pain in the area. He denies fevers, chills, dizziness, lightheadedness, head trauma, LOC, saddle anesthesia, bowel or bladder incontinence/retention, chest pain, SOB, nausea, vomiting, diarrhea, calf pain. In the ED BP is elevated, otherwise VS are stable, lab work is unremarkable. CT L spine shows acute L5 compression fracture. He received Toradol. He will be observed for further workup and treatment. Physical Exam (per Admitting): General Appearance: + pertinent finding (Pleasant WD/WN 81 year old male lying in bed in NAD ) Head: normocephalic, atraumatic Eyes: PERRL, EOMI, sclerae normal ENT: hearing grossly normal, pharynx normal Neck: supple, no JVD Respiratory/Chest: chest non-tender, lungs clear, normal breath sounds, no respiratory distress, no accessory muscle use Cardiovascular: regular rate, rhythm, no gallop, no JVD, no murmur, normal peripheral pulses Abdomen/GI: normal bowel sounds, non tender, soft (obese) Back: normal inspection, no muscle spasm, + paravertebral tenderness (L spine ) Extremities/Musculoskelatal: no calf tenderness, normal capillary refill, + pedal edema, + pertinent finding (Ecchymosis to right doral foot, nontender, good pulses ) Neurologic/Psych: no motor/sensory deficits, alert, oriented x 3, + pertinent finding Skin: normal color, warm/dry, no rash Lymphatic: no adenopathy Hospital Course This is an 81 year old male with PMH of HTN, HLD, BPH, previous T11 fracture s/ p vertebroplasty in 2007 presents with low back pain and subsequently found to have compression fracture of L5 Low Back Pain secondary to Acute Compression Fracture of L5 08/20 Doing well while in patient will d/c to [facility] today for rehab will d/c with percocet PRN for pain 08/19 CT shows acute compression fracture of L5 with some retropulsion plan is to control pain with medications, currently on IV Toradol and IV morphine as needed PT/OT may need placement vs. home health possible TLSO brace pain improved, ambulation improvement HTN BP stable, continue home medications HLD continue statin DVT ppx SCDs FULL CODE Total time spent on discharge = 45 minutes This includes examination of the patient, discharge planning, medication reconciliation, and communication with other providers. Discharge Instructions Patient should follow-up with primary care physician after stay at [facility]
[2016-08-20 15:10] VITALS: BP 137/74; PULSE 80; TEMP 36.9; O2SAT 93
[2016-08-20 16:42] VITALS: BP 137/74; PULSE 80; TEMP 36.9; O2SAT 93
[2016-08-31] MEDS ORDERED: MULT-506 PO (06:56)
[2016-08-31] MEDS ORDERED: AMOX500C3 PO (08:34)
[2016-08-31] MEDS ORDERED: IBUP-103 PO (08:34)
[2016-08-31] MEDS ORDERED: METO50TA16 PO (08:34)
[2016-08-31] MEDS ORDERED: CHOL1000 PO (11:31)
[2016-08-31] MEDS ORDERED: ASPI81TA28 PO (11:31)
[2016-08-31] MEDS ORDERED: GLYCDRO6 OPB (11:36)
== END 2016-08-20 17:19 | DRG 552 ==
LOC: ENRESERVDT → ENRESERVTM → EDBD 09:17 → C.EDB 09:18 → C.MSW 13:57 → OBSVTOIN 08-19 17:37
PROVIDERS: ADMIT Internal Medicine; ATTEND Family Medicine
DX: S32.059A Unspecified fracture of fifth lumbar vertebra, initial encounter for closed fracture (principal); M85.80 Other specified disorders of bone density and structure, unspecified site; N40.0 Benign prostatic hyperplasia without lower urinary tract symptoms; I10 Essential (primary) hypertension; E78.5 Hyperlipidemia, unspecified; W19.XXXA Unspecified fall, initial encounter

== ENCOUNTER 2016-08-31 21:50 | Inpatient (IN) | payer OTHER, MEDICARE ==
[~2016-08-31] VITALS: Ht 177.8 cm; Wt 113.5 kg
[~2016-08-31 21:50] MED LIST changes: +AMOX500C3 PO; -ASPCH81 PO; +ASPI81TA28 PO; +CHOL1000 PO; -CHOL100010 PO; +GLYCDRO6 OPB; +IBUP-103 PO; +METO50TA16 PO; +MULT-506 PO; +OXYC-57 PO; -PRED1SUS3 OPL
[2016-08-31] MEDS ORDERED: OXYC-643 PO (22:28)
[2016-08-31] MEDS ORDERED: PRVC/20 PO (22:28)
[2016-08-31] MEDS ORDERED: PRS5 PO (22:28)
[2016-08-31] MEDS ORDERED: HYDROmorphone INJ 0.5 MG/0.5 ML SYR IV STA (22:42)
[2016-08-31 23:30] LABS: BASO % 0.6 %; BASO ABS # 0.08 K/uL (0-0.2); COMPLETE YES; EOS % 2.7 %; LYMPH % 14.6 %; LYMPH ABS # 1.92 K/uL (1.2-3.4); MEAN CELL VOLUME 81.7 fL (80-100); MEAN CORPUSCULAR HEMOGLOBIN 27.6 pg (25-34); MEAN CORPUSCULAR HGB CONC 33.8 g/dl (32-36); MEAN PLATELET VOLUME 9.1 fL (7.4-10.4); MONO % 11.7 %; NEUT % 68.4 %; PLATELET COUNT 323 K/uL (130-400); RED BLOOD COUNT 5.14 M/uL (4.7-6.1); WHITE BLOOD COUNT 13.19 K/uL (4.8-10.8)
[2016-08-31 23:48] LABS: BUN/CREATININE RATIO 22.6 (10-20); CALCIUM 9.1 mg/dl (8.5-10.1); CREATININE 0.76 mg/dl (0.60-1.40); POTASSIUM 4.1 mmol/L (3.5-5.1)
[2016-09-01] VITALS (10 sets, daily range): BP systolic 109–185; BP diastolic 66–86; PULSE 94–116; TEMP 36.4–37; O2SAT 92–97; Ht 177.8 cm; Wt 113.5 kg
[2016-09-01] MEDS ORDERED: HYDROmorphone INJ 0.5 MG/0.5 ML SYR IV STA (01:07)
--- NOTE | 2016-09-01 03:08 | EMERGENCY ROOM VISIT NOTE ---
History Report prepared by Candi: Mariano Kyle Under the Supervision of: Dr. Balwinder Bartlett D.O. First contact with patient: 22:14 Chief Complaint: FALL Stated Complaint: FALL History of Present Illness The patient is an 81 year old male who presents to the Emergency Room following a falling episode that occurred shortly prior to arrival. The patient states that the fall occurred because his left leg gave out and he was not able to support himself on his right leg. He is now complaining of pain in his back, which he states is "unbearable." He denies hitting his head and loss of consciousness, or any headaches at this time. Per the patient's daughter the patient fell two weeks ago and was just discharged from rehabilitation at [facility] to return home where he lives alone. Patient denies any numbness in his groin. He is able to urinate without difficulty. The patient takes Aspirin daily as a blood thinner. The patient denies change in vision, fevers, chest pain, shortness of breath, nausea, vomiting, diarrhea, and pain with urination. Source of History: patient Onset: Shortly ROLL WEIGHER Position: back Symptom Intensity: Unbearable Associated Symptoms: No LOC, No headache Review of Systems See HPI for pertinent positives & negatives. A total of 10 systems reviewed and were otherwise negative. Past Medical & Surgical Medical Problems: (1) BPH (benign prostatic hyperplasia) (2) Compression fracture of fifth lumbar vertebra (3) Fall (4) HLD (hyperlipidemia) (5) Hypertension Surgical Problems: (1) H/O hernia repair (2) H/O vertebroplasty (3) History of total knee arthroplasty (4) Hx of cholecystectomy Family History FH: heart disease Hypertension Social History Smoking Status: Never Smoker Drug Use: none Marital Status: Housing Status: lives alone Occupation Status: retired Current/Historical Medications Scheduled Aspirin (Aspirin Ec), 81 MG PO HS Cholecalciferol (Vitamin D3), 1,000 INTER.UNIT PO DAILY Finasteride (Finasteride), 5 MG PO HS Zojajxwq-Irakkqvaiqxk-Hhhgwrfp (Artificial Tears), 1 DROP OPB BID Metoprolol Tartrate (Lopressor) (Lopressor), 50 MG PO BID Multivitamin (Multivitamin), 1 TAB PO DAILY Pravastatin Sod (Pravastatin Sodium), 20 MG PO HS Scheduled PRN Amoxicillin (Amoxil), 2,000 MG PO UD PRN for Prior to Dental Work Ibuprofen Tab (Advil), 200-600 MG PO Q4H PRN for Pain Oxycodone/Acetaminophen 5MG/325MG (Oxycodone/Acetaminophen 5MG/325MG), 1 TAB PO Q4H PRN for Moderate/Severe Pain Allergies Coded Allergies: No Known Allergies (Verified , 08/18/16) Physical Exam Vital Signs Date Time Temp Pulse Resp B/P Pulse Ox O2 Delivery O2 Flow Rate FiO2 09/01/16 02:45 87 18 172/82 93 Room Air 09/01/16 00:48 100 18 147/80 97 Room Air 08/31/16 23:35 98 16 149/82 95 Room Air 08/31/16 22:55 99 08/31/16 22:05 Room Air 08/31/16 21:59 36.7 99 16 160/76 95 Room Air 08/31/16 21:58 102 Physical Exam GENERAL: Sitting up in bed, moderate distress. alert, non-toxic EYE EXAM: normal conjunctiva OROPHARYNX: no exudate, no erythema, lips, buccal mucosa, and tongue normal and mucous membranes are moist NECK: supple, no nuchal rigidity, no adenopathy, non-tender LUNGS: Clear to auscultation. Normal chest wall mechanics HEART: no murmurs, S1 normal and S2 normal ABDOMEN: abdomen soft, non-tender, normo-active bowel sounds, no masses, no rebound or guarding. BACK: Back is symmetrical on inspection and there is no deformity. Acute reproducible lower lumbar tenderness, no step off. PELVIS: Stable to compression anteriorly and posteriorly. SKIN: no rashes and no bruising UPPER EXTREMITIES: upper extremities are grossly normal. LOWER EXTREMITIES: No pitting edema. Flexion/extension of hip/knee/ankle 5/5 on the right. Left leg with slight weakness in flexion of the hip but is able to lift leg above the bed. Plantar and dorsiflexion along with EHL is unremarkable on the left. Patellar reflexes are intact bilateral NEURO EXAM: Normal sensorium, cranial nerves II-XII intact, normal speech Medical Decision & Procedures ER Provider Diagnostic Interpretation: Radiology results as stated below per my review and the radiologist's interpretation: CT L SPINE: Comparison: CT dated 08/18/2016 Overall stable appearance of L5 superior endplate compression fracture compared to CT dated 08/18/2016. Stable retropulsion of the L5 superior endplate into the spinal canal, measuring approximately 4 mm. No evidence of new fracture of the lumbar spine. Increased foci of air within the L4-5 and L5-S1 disc spaces, likely vacuum disc phenomenon related to adjacent compression fracture. Old left L2 transverse process fracture. Osteopenic bones. Radiologist: Viola Chan MD Laboratory Results 08/31/16 23:15 Red Blood Count 5.14, Mean Corpuscular Volume 81.7, Mean Corpuscular Hemoglobin 27.6, Mean Corpuscular Hemoglobin Concent 33.8, Mean Platelet Volume 9.1, Neutrophils (%) (Auto) 68.4, Lymphocytes (%) (Auto) 14.6, Monocytes (%) (Auto) 11.7, Eosinophils (%) (Auto) 2.7, Basophils (%) (Auto) 0.6, Neutrophils # (Auto ) 9.02, Lymphocytes # (Auto) 1.92, Monocytes # (Auto) 1.54, Eosinophils # (Auto ) 0.36, Basophils # (Auto) 0.08 08/31/16 23:15 Test 08/31/16 23:15 White Blood Count 13.19 K/uL (4.8-10.8) Red Blood Count 5.14 M/uL (4.7-6.1) Hemoglobin 14.2 g/dL (14.0-18.0) Hematocrit 42.0 % (42-52) Mean Corpuscular Volume 81.7 fL (80-100) Mean Corpuscular Hemoglobin 27.6 pg (25-34) Mean Corpuscular Hemoglobin Concent 33.8 g/dl (32-36) Platelet Count 323 K/uL (130-400) Mean Platelet Volume 9.1 fL (7.4-10.4) Neutrophils (%) (Auto) 68.4 % Lymphocytes (%) (Auto) 14.6 % Monocytes (%) (Auto) 11.7 % Eosinophils (%) (Auto) 2.7 % Basophils (%) (Auto) 0.6 % Neutrophils # (Auto) 9.02 K/uL (1.4-6.5) Lymphocytes # (Auto) 1.92 K/uL (1.2-3.4) Monocytes # (Auto) 1.54 K/uL (0.11-0.59) Eosinophils # (Auto) 0.36 K/uL (0-0.5) Basophils # (Auto) 0.08 K/uL (0-0.2) RDW Standard Deviation 40.1 fL (36.4-46.3) RDW Coefficient of Variation 13.3 % (11.5-14.5) Immature Granulocyte % (Auto) 2.0 % Immature Granulocyte # (Auto) 0.27 K/uL (0.00-0.02) Anion Gap 6.0 mmol/L (3-11) Est Creatinine Clear Calc Drug Dose 94.5 ml/min Estimated GFR () 98.5 Estimated GFR (Non- 85.0 BUN/Creatinine Ratio 22.6 (10-20) Calcium Level 9.1 mg/dl (8.5-10.1) Laboratory results per my review. Medications Administered Medications (Trade) Dose Ordered Sig/Pat Route Start Time Stop Time Status Last Admin Dose Admin Hydromorphone HCl (Dilaudid Inj) 0.5 mg NOW STAT IV 08/31/16 22:42 08/31/16 22:44 DC 08/31/16 23:08 0.5 MG Hydromorphone HCl (Dilaudid Inj) 0.5 mg NOW STAT IV 09/01/16 01:07 09/01/16 01:08 DC 09/01/16 01:14 0.5 MG ED Course ED COURSE: Vital signs were reviewed and showed hypertensive vitals The patients medical record was reviewed The above diagnostic studies were performed and reviewed. ED treatments and interventions as stated above. 2218: The patient was evaluated in room C5. A complete history and physical examination was performed. 2242: Ordered Dilaudid 0.5 mg IV. 0037: I reevaluated the patient at this time. He was comfortable. 0042: I discussed the case with [facility] at this time , he will evaluate the patient for further treatment. 0046: Upon reevaluation, the patient is comfortable.I discussed my findings with the patient and she understands and agrees with the treatment plan. Based on the patients age, coexisting illnesses, exam and lab findings the decision to treat as an inpatient was made. The patient remained stable while under my care. The patient will be evaluated for further management. Medical Decision Differential diagnoses includes but is not limited to lumbar radiculopathy, muscle strain, facture, cauda equina, mass, and disc herniation. Patient is an 79-year-old male who was recently discharged from the hospital for a bar compression fracture and transferred to [facility]. He has been home for 24 hours and presents following a fall or having a weak leg and severe back pain. CT of his back shows no acute change. He does have slight weakness with flexion of his left hip. No fevers. MRI was ordered and performed. I discussed the case with internal medicine as he has seen Dr. Ball in the past. He is given 2 doses of Dilaudid with improvement of his pain. He'll be admitted to internal medicine for immature dysfunction along with a compression deformity and new slight weakness of his left hip flexors. No signs of cauda equina on exam. Consults Time Called: 37 Consulting Physician: Dr. Gold [facility] Returned Call: [phone] I discussed the case with Dr. Gold Guerrero at this time, he will evaluate the patient for further treatment. Impression Primary Impression: Acute back pain Additional Impressions: Ambulatory dysfunction Compression fracture Scribe Attestation The scribe's documentation has been prepared under my direction and personally reviewed by me in its entirety. I confirm that the note above accurately reflects all work, treatment, procedures, and medical decision making performed by me. Departure Information Dispostion Being Evaluated By Hospitalist Referrals Booker Warren D.O. (PCP) Patient Instructions My [facility] Problem Qualifiers Primary Impression: Acute back pain Back pain location: back pain in unspecified location Back pain laterality: unspecified Qualified Codes: M54.9 - Dorsalgia, unspecified
[2016-09-01] MEDS ORDERED: ALUMINUM/MAGNESIUM/SIMETH (MAALOX MAX) 30 ML UDC PO PRN (03:30)
[2016-09-01] MEDS ORDERED: ACETAMINOPHEN 325 MG TAB PO PRN ×2 (03:30→14:45)
[2016-09-01] MEDS ORDERED: HEPARIN SOD 5000 UNIT/0.5 ML CARP SQ SCH (03:30)
[2016-09-01] MEDS ORDERED: MAGNESIUM HYDROXIDE SUSP 30 ML UDC PO PRN ×2 (03:30→14:45)
[2016-09-01] MEDS ORDERED: ONDANSETRON INJ 2 MG/ML 2 ML VIAL IV PRN ×3 (03:30→14:45)
[2016-09-01] MEDS ORDERED: HYDROmorphone INJ 1 MG/ML SYR IV PRN (03:30)
[2016-09-01] MEDS ORDERED: POLYETHYLENE (MIRALAX) 17 GM PACK PO PRN (03:30)
[2016-09-01] MEDS ORDERED: IV FLUIDS COMPLETED PRN (05:00)
[2016-09-01] MEDS ORDERED: NURSING VERBAL MED ORDER ONE (05:15)
[2016-09-01] MEDS ORDERED: HydrALAZINE HCL 20 MG/ML VIAL IV. PRN (05:15)
--- NOTE | 2016-09-01 07:15 | HISTORY & PHYSICAL EXAMINATION ---
DATE OF ADMISSION: 09/01/2016 CHIEF COMPLAINT: Severe back pain and fall. HISTORY OF PRESENT ILLNESS: This is an 81-year-old male with past medical history significant for BPH, hyperlipidemia, hypertension, and history of lumbar spinal stenosis who was recently in the hospital for the low back pain and was found to have subacute compression fracture and was sent to [facility]. The patient was discharged from [facility] yesterday and came home and today while he was walking in his house, he fell down, his legs just gave out. He says that whenever he is lying, his pain is in the back, 5/10 in severity and whenever he tries to move, his pain shoots down into his legs. Denies any bowel or bladder incontinence, no fever, no chills, no chest pain, no shortness of breath, no headaches, no blurred vision, no nausea, no vomiting. Appetite is okay. Currently, resting comfortably and hemodynamically stable. ALLERGIES: No known drug allergies. PAST MEDICAL HISTORY: As mentioned above. PAST SURGICAL HISTORY: History of hernia repair, history of vertebroplasty at T11 in 2018, history of total knee arthroplasties, and cholecystectomy. MEDICATIONS: The patient is on Lopressor 50 mg p.o. b.i.d., pravastatin 20 mg p.o. daily, amoxicillin 2 g as needed, Proscar 5 mg p.o. daily, Advil p.r.n., vitamin D 1000 units p.o. daily, aspirin 81 mg p.o. daily, multivitamin p.o. daily, and hydrocodone/acetaminophen 5/325 mg one tablet every 4 hours p.r.n. pain. FAMILY HISTORY: Significant for mother had arthritis, at the age of 86. Father has hypertension. Mother also had hypertension. Brother has CAD. SOCIAL HISTORY: Never smoked. Alcohol occasional. No drug use. . REVIEW OF SYMPTOMS: As per HPI. Rest of review of symptoms negative. PHYSICAL EXAMINATION: GENERAL: The patient is obese, not in distress. VITAL SIGNS: Temperature 36.7, pulse 87, respiratory rate 18, blood pressure 142/80, and 93% room air. HEENT: No pallor, no icterus. Pupils equal, round, and reactive to light. NECK: No JVD, no neck masses, no carotid bruits. CARDIOVASCULAR: S1, S2 heard, regular rate and rhythm, no murmur, no gallop. RESPIRATORY SYSTEM: Clear to auscultation bilaterally. No wheezing, no crackles. ABDOMEN: Soft, bowel sounds present. Nontender. No distention. CENTRAL NERVOUS SYSTEM: Nonfocal. EXTREMITIES: Mild lower extremity edema present. Right-sided straight leg raise test positive. LABS: WBC 13, hemoglobin 14.2, hematocrit 42, platelets 323. Sodium 141, potassium 4.1, chloride 103, bicarbonate 32, BUN 17, creatinine 0.7, serum glucose 108, calcium 9.1. MRI done in the ER shows compression fracture of T12, post-septoplasty, subacute fracture L5 vertebral body similar to prior CT, mild retropulsion associated epidural hemorrhage post L5 vertebral body in combination of facet arthroplasty causing moderate L4-L5 canal narrowing and lcospbgt-vm-sdjciw narrowing of the left lateral recess possibly compressing the transverse left fifth nerve root, also moderate narrowing of the right lateral recess and mild bilateral foramen narrowing, conus medullaris terminates at L1-L2 and distal cord is normal . ASSESSMENT AND PLAN: An 81-year-old male who recently had a fall and a compression fracture of the L5 vertebral body, was in rehab secondary to ambulatory dysfunction and back pain. 1. Ambulatory dysfunction and back pain, MRI shows subacute fracture of the L5 vertebral body similar to prior CT scan, but also shows some retropulsion and epidural hemorrhage posterior to the L5 vertebral body in combination with facet arthropathy causing moderate L4-L5 canal narrowing and ornthtvn-dq-lvlnqs narrowing of the left lateral recess, possibly compressing the transversing left nerve root. We will admit to medical floor, pain control and consult orthopedics for further recommendations.No bowel or bladder incontinence. No apparent weakness 2. Hypertension, continue his home medications of metoprolol. 3. Hyperlipidemia, continue statin. 4. Benign prostatic hypertrophy, continue Proscar. 5. Deep venous thrombosis prophylaxis heparin subQ, SCDs. 6. Disposition: Admit to med/surg, await ortho recommendations. PT and OT prior to discharge. Social service will help with discharge planning. Level 1 full code. MTDD
[2016-09-01] MEDS: METOPROLOL TARTRATE 50 MG TAB PO SCH ×2 (07:33→21:37)
[2016-09-01] MEDS: ARTIFICIAL TEARS OP SOLN OPB SCH ×4 (07:34→21:36)
[2016-09-01] MEDS: CHOLECALCIFEROL 1000 INTER.UNIT TAB PO SCH (07:34)
[2016-09-01] MEDS: MULTIVITAMIN TAB PO SCH (07:34)
--- NOTE | 2016-09-01 07:34 | DIAGNOSTIC IMAGING REPORT ---
LUMBAR SPINE CT CT DOSE: 1662.72 mGy.cm HISTORY: lower back pain severe TECHNIQUE: Multiaxial CT images of the lumbar spine were performed and reformatted in the sagittal and coronal plane without the use of contrast. COMPARISON: Lumbar spine CT 08/18/2016. FINDINGS: There is a subacute mild superior endplate compression fracture at L5. This demonstrates similar loss of height and 4 mm of retropulsion of the posterior superior corner. This remains unchanged. This results in severe central canal narrowing at this level. There is moderate central canal narrowing at L3-L4 due to a disc bulge and facet hypertrophy. No additional acute fractures identified within the lumbar spine. The visualized sacrum appears intact. Mild paravertebral soft tissue swelling at the L5 level. The bones are osteopenic. IMPRESSION: No change in the subacute mild superior endplate compression fracture at L5 with associated 4 mm of retropulsion resulting in severe central canal narrowing at this level. No additional acute fractures. Electronically signed by: North Fortune M.D. 09/01/2016 7:32 AM Dictated Date/Time: 09/01/2016 7:28 AM
--- NOTE | 2016-09-01 08:54 | DIAGNOSTIC IMAGING REPORT ---
LUMBAR SPINE MRI HISTORY: severe lower back pain with left lower extremity weakness. TECHNIQUE: Multiplanar multisequence MRI of the lumbar spine was performed without the use of contrast. COMPARISON: Lumbar spine CT 08/31/2016. FINDINGS: For the purpose of the report the L5-S1 disc space will be located on axial image of 30. There is again noted a mild subacute superior endplate compression fracture at L5. This demonstrates up to 3 mm of retropulsion of the posterior superior corner. There is associated small epidural hematoma/edema posterior to the L5 vertebral body which measures up to 4 mm in thickness. No new fractures identified within the lumbar spine. Mild disc space narrowing at L3-L4. A small vertebral body hemangioma at T12. The conus terminates at the L1-L2 disc space level. Mild marrow edema within the L5 vertebral body and mild paravertebral soft tissue edema. There is a fluid cleft within the superior endplate of the L5 vertebral body fracture. Subcutaneous edema within the lumbar region. Old T11 vertebral body fracture with associated vertebroplasty. L1-L2: No significant central canal or neural foraminal narrowing. L2-L3: No significant central canal or neural foraminal narrowing. L3-L4: Small broad-based posterior disc bulge with mild facet hypertrophy resulting in mild central canal and mild bilateral neural foraminal narrowing. L4-L5: Moderate central canal narrowing due to the retropulsion and small epidural hematoma/edema posterior to the L5 vertebral body. There is also facet hypertrophy. Mild bilateral neural foraminal narrowing. L5-S1: No significant central canal or neural foraminal narrowing. IMPRESSION: 1. Redemonstration of the subacute mild superior endplate compression fracture at L5. This demonstrates up to 3 mm of retropulsion of the posterior superior corner. There appears to be a small epidural hematoma/edema posterior to the L5 vertebral body which measures 4 mm in thickness. This results in moderate central canal narrowing at this level. 2. No additional acute fractures identified within the lumbar spine. 3. Additional findings as described above. Electronically signed by: North Fortune M.D. 09/01/2016 8:53 AM Dictated Date/Time: 09/01/2016 8:41 AM
[2016-09-01] MEDS ORDERED: LABETALOL HCL IV 5 MG/ML 20ML IV PRN (12:00)
[2016-09-01] MEDS ORDERED: FENTANYL CITRATE INJ 50 MCG/1 ML 2 ML VIAL IV PRN (12:00)
[2016-09-01] MEDS ORDERED: FLUMAZENIL 0.1 MG/1 ML 10 ML VIAL IV PRN (12:00)
[2016-09-01] MEDS ORDERED: MEPERIDINE HCL 25 MG/ML CARP IV PRN (12:00)
[2016-09-01] MEDS ORDERED: HYDROmorphone INJ 2 MG/ML SYR/VIAL IV PRN ×2 (12:00→14:45)
[2016-09-01] MEDS ORDERED: ATROPINE SULFATE 0.1 MG/ML 5ML SYR IV PRN (12:00)
[2016-09-01] MEDS ORDERED: PHENYLEPHRINE 100MCG/ML 5ML SYR IV PRN (12:00)
[2016-09-01] MEDS ORDERED: NALOXONE HCL 0.4 MG/1 ML VIAL/CARP IV PRN (12:00)
[2016-09-01] MEDS ORDERED: EpHEDrine SULFATE INJ 50 MG/ML AMP IV PRN (12:00)
[2016-09-01] MEDS ORDERED: CEFAZOLIN IV 2,000 MG/60 ML D5W IV ONE (12:36)
[2016-09-01] MEDS ORDERED: NURSING VERBAL MED ORDER STA (12:46)
[2016-09-01] MEDS ORDERED: BUPIVACAINE/EPINEPHRINE 0.5% MPF 1:200,000 30 ML VIAL ONE (12:49)
[2016-09-01] MEDS ORDERED: CONRAY 60% 50 ML VIAL ONE (12:50)
[2016-09-01] MEDS ORDERED: BACITRACIN 50000 UNIT VIAL ONE (12:50)
[2016-09-01] MEDS ORDERED: MIDAZOLAM HCL 1 MG/ML 2ML VIAL ONE (12:53)
[2016-09-01] MEDS ORDERED: FENTANYL CITRATE INJ 50 MCG/1 ML 2 ML VIAL ONE ×3 (12:53→14:47)
--- NOTE | 2016-09-01 13:10 | History & Physical Bridge Note ---
H&P Re-Evaluation Bridge Note: I have examined the patient, reviewed the History & Physical and in the interval since the performance of the History & Physical I have noted the following changes of clinical significance: No changes noted decompression L4-S1 with kyphoplasty L5
[2016-09-01] MEDS ORDERED: HYDROmorphone INJ 2 MG/ML SYR/VIAL ONE ×2 (13:34→14:47)
[2016-09-01] MEDS ORDERED: EpHEDrine SULFATE 50MG/5ML SYR ONE (14:05)
[2016-09-01] MEDS ORDERED: PHENYLEPHRINE 100MCG/ML 5ML SYR ONE (14:05)
--- NOTE | 2016-09-01 14:36 | [facility] Post Operative Brief Note ---
Immediate Operative Summary Operative Date September 01, 2016. Pre-Operative Diagnosis compression fracture of the L5 vertebral body Post-Operative Diagnosis compression fracture of the L5 vertebral body Procedure(s) Performed L4-L5, L5-S1 Decompression; L5 [address] Orville Ball Technical Operator Surgeon(s) Tarah Ayala PA-C Estimated Blood Loss 100 ml Findings stenosis Specimens none per surgeon
[2016-09-01] MEDS ORDERED: FLOSEAL HEMOSTATIC MATRIX 5ML TOP ONE (14:40)
[2016-09-01] MEDS ORDERED: DEXAMETHASONE SOD INJ 4 MG/ML VIAL ONE (14:43)
[2016-09-01] MEDS ORDERED: PROPOFOL IV EMULSION 10 MG/ML 20 ML VIAL IV ONE (14:43)
[2016-09-01] MEDS ORDERED: LIDOCAINE HCL 2% 2 ML VIAL (20MG/ML) ONE (14:43)
[2016-09-01] MEDS ORDERED: ROCURONIUM BROMIDE 10 MG/ML 5 ML VIAL ONE (14:43)
[2016-09-01] MEDS ORDERED: DO NOT ADMINISTER FLU VACCINE PRN ×3 (14:45)
[2016-09-01] MEDS ORDERED: DO NOT ADMINISTER PNEUMOCOCCAL VACCINE PRN ×2 (14:45)
[2016-09-01] MEDS ORDERED: OXYCODONE HCL IR 5 MG TAB (IMMEDIATE RELEASE) PO PRN (14:45)
[2016-09-01] MEDS ORDERED: KETOROLAC TROMETHAMINE 30 MG/ML VIAL ONE (14:56)
[2016-09-01] MEDS ORDERED: GLYCOPYRROLATE INJ 0.2 MG/ML VIAL ONE (14:56)
[2016-09-01] MEDS ORDERED: NEOSTIGMINE METHYLSULFATE 1 MG/ML 10ML VIAL ONE (14:56)
--- NOTE | 2016-09-01 14:58 | OPERATIVE REPORT ---
DATE OF OPERATION: 09/01/2016 PREOPERATIVE DIAGNOSIS: Spinal stenosis with L5 compression fracture. POSTOPERATIVE DIAGNOSIS: Same. PROCEDURES PERFORMED: 1. Lumbar decompression, medial facetectomies, foraminotomies L4-5, L5-S1. 2. Kyphoplasty L5. SURGEON: Dr. Orville Ball. SERVICES EXECUTIVE: Tarah Paige PA-C. Due to the complex nature of the procedure, the entire surgery was performed with the sales assistants and salespersons of Tarah Paige PA-C. The recruitment assistant, under direct supervision, was involved in the actual performance of all aspects of the surgical procedure including hemostasis, tissue retraction and incision, instrument management, patient positioning, and wound closure. ANESTHESIA: General. DISPOSITION: The patient awakened and taken to PACU in stable condition. HISTORY OF PATIENT'S PROBLEMS: An 81-year-old male that presents with above-mentioned diagnosis. After failing an extensive course of nonoperative care and having decline in status he elected to undergo the above-mentioned procedure. Risks, benefits, pros, cons, and alternatives were outlined in detail preoperatively. OPERATION AND FINDINGS: PROCEDURE: The patient was met with preoperatively, the case discussed and all questions were addressed. At that point the patient was taken back to operative suite and after undergoing successful general intubation by the department of anesthesia was placed in prone position on Andrey table atop Paddy frame. All bony prominences were well padded and the eyes were inspected to ensure there was no external pressure placed upon them. At this point, lumbar spine was prepped and draped in normal sterile fashion. Sharp dissection with the assistance of Bovie cautery was performed down to and exposing the lamina of L4 and 5 as well as the transverse processes of L5. From a caudal to cephalad fashion, complete laminectomy of L5, partial laminectomy of L4 was performed addressing significant lateral recess and foraminal stenosis. After complete decompression, we placed 2 Kyphon [address] cannulas by way of a transpedicular approach into the L5 vertebral body. We used fluoroscopy for guidance. Two 20 mm balloons were inserted, sequentially inflated, subsequently removed and approximately 6 mL of Kyphon cement placed in the intervertebral body providing excellent fill and improvement in the L5 collapse. After this was complete, the working apparatus was removed. The incision was copiously irrigated. A 7 flat MADY drain inserted. Incision was closed with 1-0 Vicryl in the fascia, 2-0 Vicryl subcutaneously, 4-0 Monocryl for final skin closure. Steri-Strips and sterile dressing placed. The patient was awakened and taken to PACU in stable condition. I attest to the content of the Intraoperative Record and any orders documented therein. Any exceptio ns are noted below.
--- NOTE | 2016-09-01 15:02 | DIAGNOSTIC IMAGING REPORT ---
LUMBAR SPINE, INTRAOPERATIVE FLUOROSCOPY HISTORY: L4-5 decompression. L5 kyphoplasty.. FLUOROSCOPY TIME: 2 minutes and 10 seconds. FINDINGS: Intraoperative fluoroscopy was provided for the lumbar spine. 2 fluoroscopic spot images were obtained. Images demonstrate pedicle catheters with cement placement at L5 consistent with kyphoplasty. IMPRESSION: Fluoroscopy provided for a L5 kyphoplasty. Electronically signed by: North Fortune M.D. 09/01/2016 3:01 PM Dictated Date/Time: 09/01/2016 3:00 PM
--- NOTE | 2016-09-01 15:51 | Anesthesiology Progress Note ---
Anesthesia Post Op Note Date & Time September 01, 2016 at 15:52 Vital Signs Pain Intensity: 0 Vital Signs Past 12 Hours Date Time Temp Pulse Resp B/P Pulse Ox O2 Delivery O2 Flow Rate FiO2 09/01/16 15:40 36.7 92 15 152/68 95 Nasal Cannula 4 09/01/16 15:30 93 18 137/72 95 Nasal Cannula 4 09/01/16 15:20 89 15 145/74 94 Nasal Cannula 4 09/01/16 15:10 88 14 145/68 96 Mask 10 09/01/16 15:00 37.1 91 15 145/63 96 Mask 10 09/01/16 08:00 97 Nasal Cannula 2.0 09/01/16 06:59 36.7 116 16 153/74 97 2.0 09/01/16 04:00 175/84 95 Nasal Cannula 2.0 Notes Mental Status: alert / awake / arousable, participated in evaluation Pt Amnestic to Procedure: Yes Nausea / Vomiting: adequately controlled Pain: adequately controlled Airway Patency, RR, SpO2: stable & adequate BP & HR: stable & adequate Hydration State: stable & adequate Anesthetic Complications: no major complications apparent
[2016-09-01] MEDS: SODIUM CHLORIDE 0.9% 1000ML 1,000 ML IV SCH (16:49)
--- NOTE | 2016-09-01 17:50 | Progress Note ---
Subjective Date of Service: September 01, 2016. Subjective Pt evaluation today including: conversation w/ patient, physical exam, lab review, review of studies, review of inpatient medication list Saw/examined the patient in room 351 I saw the patient after his procedure - he is doing well post-operatively pain controlled, no fevers/chills, drain in place, no nausea Problem List Medical Problems: (1) Acute back pain Status: Acute (2) Ambulatory dysfunction Status: Acute (3) Compression fracture of fifth lumbar vertebra Status: Acute (4) Low back pain Status: Acute Review of Systems Constitutional: No chills, No fever Respiratory: No shortness of breath Cardiac: No chest pain, No edema, No palpitations Abdomen: No diarrhea, No nausea, No pain, No vomiting Musculoskeletal: + joint pain (back pain, improved) Medications Current Inpatient Medications Medications (Trade) Dose Ordered Sig/Pat Route Start Time Stop Time Status Last Admin Dose Admin Acetaminophen (Tylenol Tab) 650 mg Q4H PRN PO 09/01/16 03:30 10/01/16 03:29 Al Hydrox/Mg Hydrox/Simethicone (Maalox Max Susp) 15 ml Q4H PRN PO 09/01/16 03:30 10/01/16 03:29 Magnesium Hydroxide (Milk Of Magnesia Susp) 30 ml Q6H PRN PO 09/01/16 03:30 10/01/16 03:29 Polyethylene (Miralax Powder Packet) 17 gm DAILY PRN PO 09/01/16 03:30 10/01/16 03:29 Ondansetron HCl (Zofran Inj) 4 mg Q6H PRN IV 09/01/16 03:30 10/01/16 03:29 Aspirin (Ecotrin Tab) 81 mg HS PO 09/01/16 21:00 10/01/16 20:59 Cholecalciferol (Vitamin D Tab) 1,000 inter.unit DAILY PO 09/01/16 09:00 10/01/16 08:59 09/01/16 07:34 1,000 INTER.UNIT Finasteride (Proscar Tab) 5 mg HS PO 09/01/16 21:00 10/01/16 20:59 Metoprolol Tartrate (Lopressor Tab) 50 mg BID PO 09/01/16 09:00 10/01/16 08:59 09/01/16 07:33 50 MG Multivitamins (Multivitamin Tab) 1 tab DAILY PO 09/01/16 09:00 10/01/16 08:59 09/01/16 07:34 1 TAB Oxycodone/ Acetaminophen (Percocet 5-325mg Tab) 1 tab Q4H PRN PO 09/01/16 03:30 09/15/16 03:29 Pravastatin Sodium (Pravachol Tab) 20 mg HS PO 09/01/16 21:00 10/01/16 20:59 Artificial Tears (Artificial Tears) 1 drops BID OPB 09/01/16 09:00 10/01/16 08:59 09/01/16 07:34 1 DROPS Hydromorphone HCl (Dilaudid Inj) 0.5 mg Q4 PRN IV 09/01/16 03:30 09/15/16 03:29 09/01/16 07:30 0.5 MG Miscellaneous (Iv Fluids Completed) 1 ea PRN PRN N/A 09/01/16 05:00 09/01/17 04:59 Hydralazine HCl (HydrALAZINE INJ) 10 mg Q6 PRN IV. 09/01/16 05:15 10/01/16 05:14 09/01/16 05:15 10 MG Ondansetron HCl (Zofran Inj) 4 mg ONE PRN IV 09/01/16 12:00 09/01/16 19:00 Docusate Sodium 100 mg 100 mg BID PO 09/01/16 21:00 10/01/16 20:59 Cefazolin Sodium/ Dextrose (Ancef Iv/D5 50ml) 60 ml @ 100 mls/hr Q8 IV 09/01/16 22:00 09/02/16 14:35 Pneumococcal Polysaccharide Vaccine 1 ea PRN PRN N/A 09/01/16 14:45 10/01/16 14:44 Influenza Virus Vacc Triv Types A&B 1 ea 1 ea PRN PRN N/A 09/01/16 14:45 10/01/16 14:44 Sodium Chloride (Nss 1000ml) 1,000 ml @ 80 mls/hr [id number] IV 09/01/16 15:00 09/02/16 14:59 09/01/16 16:49 80 MLS/HR Oxycodone HCl (Roxicodone Immediate Rel Tab) 5 mg Q4H PRN PO 09/01/16 14:45 09/15/16 14:44 Hydromorphone HCl (Dilaudid Inj) `If PO analgesic is order... Q3H PRN IV 09/01/16 14:45 09/15/16 14:44 Polyethylene (Miralax Powder Packet) 17 gm DAILY PO 09/04/16 09:00 10/04/16 08:59 Bisacodyl (Dulcolax Tab) 5 mg DAILY PRN PO 09/03/16 06:00 10/03/16 05:59 Bisacodyl (Dulcolax Supp) 10 mg DAILY PRN HI 09/03/16 06:00 10/03/16 05:59 Objective Vital Signs Date Time Temp Pulse Resp B/P Pulse Ox O2 Delivery O2 Flow Rate FiO2 09/01/16 17:24 36.7 95 16 159/82 94 Nasal Cannula 2.0 09/01/16 15:55 89 16 143/77 95 Nasal Cannula 4 09/01/16 15:40 36.7 92 15 152/68 95 Nasal Cannula 4 09/01/16 15:30 93 18 137/72 95 Nasal Cannula 4 09/01/16 15:20 89 15 145/74 94 Nasal Cannula 4 09/01/16 15:10 88 14 145/68 96 Mask 10 09/01/16 15:00 37.1 91 15 145/63 96 Mask 10 09/01/16 08:00 97 Nasal Cannula 2.0 09/01/16 06:59 36.7 116 16 153/74 97 2.0 09/01/16 04:00 175/84 95 Nasal Cannula 2.0 09/01/16 03:45 36.7 97 16 185/74 95 Nasal Cannula 2.0 09/01/16 03:45 95 Nasal Cannula 2.0 09/01/16 03:42 85 18 165/81 92 09/01/16 02:45 87 18 172/82 93 Room Air 09/01/16 00:48 100 18 147/80 97 Room Air 08/31/16 23:35 98 16 149/82 95 Room Air 08/31/16 22:55 99 08/31/16 22:05 Room Air 08/31/16 21:59 36.7 99 16 160/76 95 Room Air 08/31/16 21:58 102 Physical Exam General Appearance: no apparent distress Respiratory/Chest: lungs clear, normal breath sounds, no respiratory distress, no accessory muscle use Cardiovascular: regular rate, rhythm, no edema, no murmur Abdomen: normal bowel sounds, non tender, soft Extremities: normal inspection, no pedal edema, + pertinent finding (+drain in place, draining bloody discharge) Laboratory Results Last 24 Hours Test 08/31/16 23:15 White Blood Count 13.19 K/uL Red Blood Count 5.14 M/uL Hemoglobin 14.2 g/dL Hematocrit 42.0 % Mean Corpuscular Volume 81.7 fL Mean Corpuscular Hemoglobin 27.6 pg Mean Corpuscular Hemoglobin Concent 33.8 g/dl Platelet Count 323 K/uL Mean Platelet Volume 9.1 fL Neutrophils (%) (Auto) 68.4 % Lymphocytes (%) (Auto) 14.6 % Monocytes (%) (Auto) 11.7 % Eosinophils (%) (Auto) 2.7 % Basophils (%) (Auto) 0.6 % Neutrophils # (Auto) 9.02 K/uL Lymphocytes # (Auto) 1.92 K/uL Monocytes # (Auto) 1.54 K/uL Eosinophils # (Auto) 0.36 K/uL Basophils # (Auto) 0.08 K/uL RDW Standard Deviation 40.1 fL RDW Coefficient of Variation 13.3 % Immature Granulocyte % (Auto) 2.0 % Immature Granulocyte # (Auto) 0.27 K/uL Sodium Level 141 mmol/L Potassium Level 4.1 mmol/L Chloride Level 103 mmol/L Carbon Dioxide Level 32 mmol/L Anion Gap 6.0 mmol/L Blood Urea Nitrogen 17 mg/dl Creatinine 0.76 mg/dl Est Creatinine Clear Calc Drug Dose 94.5 ml/min Estimated GFR () 98.5 Estimated GFR (Non- 85.0 BUN/Creatinine Ratio 22.6 Random Glucose 108 mg/dl Calcium Level 9.1 mg/dl Assessment and Plan This is an 81 year old male with PMH of HTN, HLD, BPH, previous T11 fracture s/ p vertebroplasty in 2007 presents with low back pain; was admitted here with the compression fracture; discharged to [facility]; did well, but pain recurred when he went home Compression Fracture of L5 s/p decompression and kyphoplasty pain now controlled PT/OT in AM (09/02) appreciate ortho input Roxicodone PRN and Dilaudid PRN for pain bowel regimen as per ortho DVT ppx as per ortho; SCDs for now HTN BP controlled continue home medications pain meds PRN BPH continue home medications DVT ppx as per ortho FULL CODE
--- NOTE | 2016-09-01 18:20 | ORTHOPEDIC CONSULTATION ---
DATE OF CONSULTATION: 09/01/2016 CHIEF COMPLAINT: Back and bilateral leg pain, left greater than right. HISTORY OF PRESENT ILLNESS: This is a very pleasant 81-year-old male who had a compression fracture few weeks ago, had been at [facility] and progressed relatively well, but upon returning home, had a decline in status, multiple falls and pain that emanates from the back in to the bilateral buttocks, left greater than right with weakness in the left lower extremity. This is markedly worsened in nature. PAST MEDICAL HISTORY: Significant for hyperlipidemia, hypertension, and spinal stenosis. PAST SURGICAL HISTORY: Includes vertebroplasty, total knee, and cholecystectomy. PHYSICAL EXAMINATION: He is accompanied by his daughter at bedside. He is alert and oriented. He exhibits +5/5 plantarflexion, dorsiflexion and extensor hallucis longus bilaterally. He has weakness with hip flexors on the left, but full strength on the right. Sensory is symmetric and intact. MRI of the lumbar spine dated September 01, demonstrates a compression fracture along the superior endplate of L5. There is significant fluid level indicating instability. There is some protrusion in the posterior canal and subsequent significant central lateral recess stenosis at the L4-L5 and L5-S1 levels. Appreciable compression of the L5 nerve root on the left. ASSESSMENT: Compression fracture with spinal stenosis. PLAN: At this time, I had a long discussion with this patient reviewing his progress and the clinical options. We just considered decompression of L4-L5 possible L5-S1 with kyphoplasty of L5. This will hopefully accomplish stabilization of the fracture site, improvement of his back pain as well as decompression of the nerve and improvement of his leg pain. This again will hopefully allow us to begin therapy and ambulation as soon as possible. Risks, benefits, pros, cons, and alternatives were outlined in detail. Risks include but not limited to from anesthesia, unsterile process, nerve damage, blood loss requiring transfusion, and infection requiring reoperation. Benefits will be marked improvement of his back and leg pain.
[2016-09-01] MEDS: PRAVASTATIN SOD 20 MG TAB PO SCH (21:36)
[2016-09-01] MEDS: ASPIRIN 81 MG ECTAB PO SCH (21:36)
[2016-09-01] MEDS: DOCUSATE SODIUM 100 MG CAP PO SCH (21:37)
[2016-09-01] MEDS: FINASTERIDE 5 MG TAB PO SCH (21:37)
[2016-09-01] MEDS: CEFAZOLIN IV 2,000 MG in DEXTROSE 5% 50ML 50 ML IV SCH (21:43)
[2016-09-02] VITALS (8 sets, daily range): BP systolic 113–161; BP diastolic 60–82; PULSE 76–93; TEMP 36.4–37.1; O2SAT 92–94
[2016-09-02] MEDS: SODIUM CHLORIDE 0.9% 1000ML 1,000 ML IV SCH (03:28)
[2016-09-02 05:38] LABS: BASO ABS # 0.01 K/uL (0-0.2); COMPLETE YES; HEMATOCRIT 38.3 % (42-52); IG% 0.9 %; LYMPH % 5.1 %; LYMPH ABS # 1.05 K/uL (1.2-3.4); MEAN CORPUSCULAR HGB CONC 32.9 g/dl (32-36); MEAN PLATELET VOLUME 9.4 fL (7.4-10.4); PLATELET COUNT 336 K/uL (130-400); RED BLOOD COUNT 4.67 M/uL (4.7-6.1); WHITE BLOOD COUNT 20.48 K/uL (4.8-10.8)
[2016-09-02] MEDS: CEFAZOLIN IV 2,000 MG in DEXTROSE 5% 50ML 50 ML IV SCH ×2 (05:39→13:33)
[2016-09-02 06:25] LABS: BUN/CREATININE RATIO 25.5 (10-20); CREATININE 0.6 mg/dl (0.60-1.40); MAGNESIUM 2.4 mg/dl (1.8-2.4); POTASSIUM 4.2 mmol/L (3.5-5.1)
[2016-09-02 06:29] LABS: CALCIUM 9.1 mg/dl (8.5-10.1)
--- NOTE | 2016-09-02 06:31 | Clinical Documentation Query ---
CLINICAL DOCUMENTATION QUERY 81 year old male who presents to the Emergency Room following a falling. Lumbar CT showed subacute fracture of the L5 vertebral body similar to prior CT scan, but also shows some retropulsion and epidural hemorrhage posterior to the L5 vertebral body in combination with facet arthropathy causing moderate L4-L5 canal narrowing and [id number] narrowing of the left lateral recess, possibly compressing the transversing left nerve root. Osteopenia was also noted by radiologist. In your clinical opinion is this patient being managed for: ( X ) L5 traumatic compression fracture ( ) Other explanation of clinical findings (Please Explain) ( ) Unable to determine (Please Define) ( ) Need to Discuss ( ) Not Agree The medical record reflects the following clinical findings, treatment, and risk factors. Clinical Indicators: As above. Treatment: Kyphoplasty Risk Factors: Age, Please clarify and document your clinical opinion in the progress notes and discharge summary. Terms such as "probable", "suspected", "likely", "questionable", "possible", or "still to be ruled out" are acceptable. IF IN AGREEMENT, YOU MUST DOCUMENT ABOVE DIAGNOSTIC STATEMENT IN DAILY PROGRESS NOTES AND DISCHARGE SUMMARY. This document is not part of the patient's record. Thank You, Tito Negron, SHILPA [phone]
--- NOTE | 2016-09-02 06:33 | Clinical Documentation Query ---
CLINICAL DOCUMENTATION QUERY 81 year old male who presents to the Emergency Room following a falling. Lumbar CT showed subacute fracture of the L5 vertebral body similar to prior CT scan, but also shows some retropulsion and epidural hemorrhage posterior to the L5 vertebral body in combination with facet arthropathy causing moderate L4-L5 canal narrowing and [id number] narrowing of the left lateral recess, possibly compressing the transversing left nerve root. Osteopenia was also noted by radiologist. In your clinical opinion is this patient being managed for: ( ) L5 traumatic osteoporotic compression fracture ( ) Other explanation of clinical findings (Please Explain) ( ) Unable to determine (Please Define) ( ) Need to Discuss ( ) Not Agree The medical record reflects the following clinical findings, treatment, and risk factors. Clinical Indicators: As above. Treatment: Kyphoplasty Risk Factors: Age, Please clarify and document your clinical opinion in the progress notes and discharge summary. Terms such as "probable", "suspected", "likely", "questionable", "possible", or "still to be ruled out" are acceptable. IF IN AGREEMENT, YOU MUST DOCUMENT ABOVE DIAGNOSTIC STATEMENT IN DAILY PROGRESS NOTES AND DISCHARGE SUMMARY. This document is not part of the patient's record. Thank You, Tito Negron, SHILPA [phone]
--- NOTE | 2016-09-02 08:23 | PROGRESS NOTE ---
DATE: 09/02/2016 Postop day 1. Back symptoms are improved. Leg symptoms markedly improved. Vital signs stable. T-max 36.4. MADY drained 50 mL. Hematocrit this a.m. is 38.3. On exam, he appears more comfortable. His leg function on the left is markedly improved. His hip flexors are functioning much better than they were preoperatively. ASSESSMENT: Status post decompression kyphoplasty. PLAN: At this time, will initiate physical therapy, advance his activity. Determine disposition in the next day or so.
--- NOTE | 2016-09-02 08:27 | Anesthesiology Progress Note ---
Anesthesia Post Op Note Date & Time September 02, 2016 at 08:26 Vital Signs Pain Intensity: 0.0 Vital Signs Past 12 Hours Date Time Temp Pulse Resp B/P Pulse Ox O2 Delivery O2 Flow Rate FiO2 09/02/16 07:45 Room Air 09/02/16 07:27 36.4 78 16 133/68 94 Room Air 09/02/16 03:20 36.4 91 14 124/64 94 Nasal Cannula 2.0 09/02/16 00:00 Nasal Cannula 2.0 09/01/16 23:01 37.0 103 16 109/66 92 Nasal Cannula 2.0 09/01/16 20:59 106 136/79 Notes Mental Status: alert / awake / arousable, participated in evaluation Anesthetic Complications: no major complications apparent
[2016-09-02] MEDS: ARTIFICIAL TEARS OP SOLN OPB SCH ×4 (09:05→21:39)
[2016-09-02] MEDS: METOPROLOL TARTRATE 50 MG TAB PO SCH ×2 (09:05→21:40)
[2016-09-02] MEDS: MULTIVITAMIN TAB PO SCH (09:05)
[2016-09-02] MEDS: OXYCODONE/ACETAMINOPHEN 5-325 TAB PO PRN ×3 (09:10→21:42)
[2016-09-02] MEDS: CHOLECALCIFEROL 1000 INTER.UNIT TAB PO SCH (09:51)
[2016-09-02] MEDS: DOCUSATE SODIUM 100 MG CAP PO SCH ×2 (09:51→21:39)
[2016-09-02] MEDS ORDERED: NURSING VERBAL MED ORDER ONE (11:00)
--- NOTE | 2016-09-02 11:27 | Progress Note ---
Subjective Date of Service: September 02, 2016. Subjective Pt evaluation today including: conversation w/ patient, physical exam, lab review, review of studies, review of inpatient medication list Saw/examined the patient in room 351 He is seated in a chair, pain controlled states he ambulated well earlier today no BMs as of yet Problem List Medical Problems: (1) Acute back pain Status: Acute (2) Ambulatory dysfunction Status: Acute (3) Compression fracture of fifth lumbar vertebra Status: Acute (4) Low back pain Status: Acute Review of Systems Constitutional: No chills, No fever Respiratory: No shortness of breath Cardiac: No chest pain Abdomen: + constipation, No pain Musculoskeletal: + joint pain (back pain controlled with medications) Medications Current Inpatient Medications Medications (Trade) Dose Ordered Sig/Pat Route Start Time Stop Time Status Last Admin Dose Admin Acetaminophen (Tylenol Tab) 650 mg Q4H PRN PO 09/01/16 03:30 10/01/16 03:29 Al Hydrox/Mg Hydrox/Simethicone (Maalox Max Susp) 15 ml Q4H PRN PO 09/01/16 03:30 10/01/16 03:29 Magnesium Hydroxide (Milk Of Magnesia Susp) 30 ml Q6H PRN PO 09/01/16 03:30 10/01/16 03:29 Polyethylene (Miralax Powder Packet) 17 gm DAILY PRN PO 09/01/16 03:30 10/01/16 03:29 Ondansetron HCl (Zofran Inj) 4 mg Q6H PRN IV 09/01/16 03:30 10/01/16 03:29 Aspirin (Ecotrin Tab) 81 mg HS PO 09/01/16 21:00 10/01/16 20:59 09/01/16 21:36 81 MG Cholecalciferol (Vitamin D Tab) 1,000 inter.unit DAILY PO 09/01/16 09:00 10/01/16 08:59 09/02/16 09:51 1,000 INTER.UNIT Finasteride (Proscar Tab) 5 mg HS PO 09/01/16 21:00 10/01/16 20:59 09/01/16 21:37 5 MG Metoprolol Tartrate (Lopressor Tab) 50 mg BID PO 09/01/16 09:00 10/01/16 08:59 09/02/16 09:05 50 MG Multivitamins (Multivitamin Tab) 1 tab DAILY PO 09/01/16 09:00 10/01/16 08:59 09/02/16 09:05 1 TAB Oxycodone/ Acetaminophen (Percocet 5-325mg Tab) 1 tab Q4H PRN PO 09/01/16 03:30 09/15/16 03:29 09/02/16 09:10 1 TAB Pravastatin Sodium (Pravachol Tab) 20 mg HS PO 09/01/16 21:00 10/01/16 20:59 09/01/16 21:36 20 MG Artificial Tears (Artificial Tears) 1 drops BID OPB 09/01/16 09:00 10/01/16 08:59 09/02/16 09:05 1 DROPS Hydromorphone HCl (Dilaudid Inj) 0.5 mg Q4 PRN IV 09/01/16 03:30 09/15/16 03:29 09/01/16 07:30 0.5 MG Miscellaneous (Iv Fluids Completed) 1 ea PRN PRN N/A 09/01/16 05:00 09/01/17 04:59 Hydralazine HCl (HydrALAZINE INJ) 10 mg Q6 PRN IV. 09/01/16 05:15 10/01/16 05:14 09/01/16 05:15 10 MG Docusate Sodium 100 mg 100 mg BID PO 09/01/16 21:00 10/01/16 20:59 09/02/16 09:51 100 MG Cefazolin Sodium/ Dextrose (Ancef Iv/D5 50ml) 60 ml @ 100 mls/hr Q8 IV 09/01/16 22:00 09/02/16 14:35 09/02/16 05:39 100 MLS/HR Pneumococcal Polysaccharide Vaccine 1 ea PRN PRN N/A 09/01/16 14:45 10/01/16 14:44 Influenza Virus Vacc Triv Types A&B 1 ea PRN PRN N/A 09/01/16 14:45 10/01/16 14:44 Oxycodone HCl (Roxicodone Immediate Rel Tab) 5 mg Q4H PRN PO 09/01/16 14:45 09/15/16 14:44 09/01/16 21:50 5 MG Hydromorphone HCl (Dilaudid Inj) `If PO analgesic is order... Q3H PRN IV 09/01/16 14:45 09/15/16 14:44 Polyethylene (Miralax Powder Packet) 17 gm DAILY PO 09/04/16 09:00 10/04/16 08:59 Bisacodyl (Dulcolax Tab) 5 mg DAILY PRN PO 09/03/16 06:00 10/03/16 05:59 Bisacodyl (Dulcolax Supp) 10 mg DAILY PRN RI 09/03/16 06:00 10/03/16 05:59 Objective Vital Signs Date Time Temp Pulse Resp B/P Pulse Ox O2 Delivery O2 Flow Rate FiO2 09/02/16 10:59 36.8 76 16 113/65 94 Room Air 09/02/16 09:54 93 94 09/02/16 07:45 Room Air 09/02/16 07:27 36.4 78 16 133/68 94 Room Air 09/02/16 03:20 36.4 91 14 124/64 94 Nasal Cannula 2.0 09/02/16 00:00 Nasal Cannula 2.0 09/01/16 23:01 37.0 103 16 109/66 92 Nasal Cannula 2.0 09/01/16 20:59 106 136/79 09/01/16 19:53 36.9 107 16 134/77 93 Nasal Cannula 2.0 09/01/16 18:17 105 16 153/86 92 09/01/16 17:24 36.7 95 16 159/82 94 Nasal Cannula 2.0 09/01/16 16:20 94 Nasal Cannula 2.0 09/01/16 16:20 94 Nasal Cannula 2.0 09/01/16 16:20 36.4 94 16 150/78 94 Nasal Cannula 2.0 09/01/16 15:55 89 16 143/77 95 Nasal Cannula 4 09/01/16 15:40 36.7 92 15 152/68 95 Nasal Cannula 4 09/01/16 15:30 93 18 137/72 95 Nasal Cannula 4 09/01/16 15:20 89 15 145/74 94 Nasal Cannula 4 09/01/16 15:10 88 14 145/68 96 Mask 10 09/01/16 15:00 37.1 91 15 145/63 96 Mask 10 Physical Exam General Appearance: no apparent distress, + obese Respiratory/Chest: lungs clear, normal breath sounds, no respiratory distress, no accessory muscle use Cardiovascular: regular rate, rhythm, no edema, no murmur Extremities: normal inspection, no pedal edema Neurologic/Psychiatric: no motor/sensory deficits, alert, normal mood/affect Laboratory Results Last 24 Hours Test 09/02/16 05:21 White Blood Count 20.48 K/uL Red Blood Count 4.67 M/uL Hemoglobin 12.6 g/dL Hematocrit 38.3 % Mean Corpuscular Volume 82.0 fL Mean Corpuscular Hemoglobin 27.0 pg Mean Corpuscular Hemoglobin Concent 32.9 g/dl Platelet Count 336 K/uL Mean Platelet Volume 9.4 fL Neutrophils (%) (Auto) 84.0 % Lymphocytes (%) (Auto) 5.1 % Monocytes (%) (Auto) 10.0 % Eosinophils (%) (Auto) 0.0 % Basophils (%) (Auto) 0.0 % Neutrophils # (Auto) 17.19 K/uL Lymphocytes # (Auto) 1.05 K/uL Monocytes # (Auto) 2.04 K/uL Eosinophils # (Auto) 0.01 K/uL Basophils # (Auto) 0.01 K/uL RDW Standard Deviation 40.3 fL RDW Coefficient of Variation 13.3 % Immature Granulocyte % (Auto) 0.9 % Immature Granulocyte # (Auto) 0.18 K/uL Sodium Level 141 mmol/L Potassium Level 4.2 mmol/L Chloride Level 105 mmol/L Carbon Dioxide Level 31 mmol/L Anion Gap 5.0 mmol/L Blood Urea Nitrogen 15 mg/dl Creatinine 0.60 mg/dl Est Creatinine Clear Calc Drug Dose 119.8 ml/min Estimated GFR () 108.5 Estimated GFR (Non- 93.6 BUN/Creatinine Ratio 25.5 Random Glucose 137 mg/dl Calcium Level 9.1 mg/dl Magnesium Level 2.4 mg/dl Assessment and Plan This is an 81 year old male with PMH of HTN, HLD, BPH, previous T11 fracture s/ p vertebroplasty in 2007 presents with low back pain; was admitted here with the compression fracture; [facility]; did well, but pain recurred when he went home Compression Fracture of L5 09/02 doing well post-operatively, POD #1 PT/OT pain is controlled with medications no bowel movement yet 09/01 s/p decompression and kyphoplasty pain now controlled PT/OT in AM (09/02) appreciate ortho input Roxicodone PRN and Dilaudid PRN for pain bowel regimen as per ortho DVT ppx as per ortho; SCDs for now HTN BP controlled continue home medications pain meds PRN BPH continue home medications DVT ppx as per ortho FULL CODE
[2016-09-02] MEDS: SENNA 8.6 MG TAB PO SCH (12:31)
[2016-09-02] MEDS: PRAVASTATIN SOD 20 MG TAB PO SCH (21:39)
[2016-09-02] MEDS: ASPIRIN 81 MG ECTAB PO SCH (21:39)
[2016-09-02] MEDS: FINASTERIDE 5 MG TAB PO SCH (21:40)
[2016-09-03] MEDS ORDERED: BISACODYL 10 MG SUPP PR PRN (06:00)
[2016-09-03] MEDS ORDERED: BISACODYL 5 MG TABEC PO PRN (06:00)
[2016-09-03 07:32] VITALS: BP 163/79; PULSE 94; TEMP 36.7; O2SAT 92
[2016-09-03 08:08] LABS: BASO % 0.1 %; BASO ABS # 0.03 K/uL (0-0.2); COMPLETE YES; EOS % 0.3 %; HEMATOCRIT 43.7 % (42-52); LYMPH % 6.1 %; LYMPH ABS # 1.33 K/uL (1.2-3.4); MEAN CELL VOLUME 82.5 fL (80-100); MEAN CORPUSCULAR HEMOGLOBIN 27.4 pg (25-34); MEAN CORPUSCULAR HGB CONC 33.2 g/dl (32-36); MEAN PLATELET VOLUME 9.4 fL (7.4-10.4); MONO % 12.1 %; NEUT % 80.4 %; PLATELET COUNT 360 K/uL (130-400); WHITE BLOOD COUNT 21.71 K/uL (4.8-10.8)
[2016-09-03 09:10] LABS: BUN/CREATININE RATIO 31.9 (10-20); CALCIUM 8.9 mg/dl (8.5-10.1); CREATININE 0.51 mg/dl (0.60-1.40); MAGNESIUM 2.8 mg/dl (1.8-2.4); POTASSIUM 3.9 mmol/L (3.5-5.1)
[2016-09-03] MEDS: DOCUSATE SODIUM 100 MG CAP PO SCH ×2 (09:31→22:10)
[2016-09-03] MEDS: ARTIFICIAL TEARS OP SOLN OPB SCH ×4 (09:31→22:11)
[2016-09-03] MEDS: METOPROLOL TARTRATE 50 MG TAB PO SCH ×2 (09:32→22:10)
[2016-09-03] MEDS: MULTIVITAMIN TAB PO SCH (09:32)
[2016-09-03] MEDS: SENNA 8.6 MG TAB PO SCH (09:32)
[2016-09-03] MEDS: CHOLECALCIFEROL 1000 INTER.UNIT TAB PO SCH (09:32)
[2016-09-03] MEDS: OXYCODONE/ACETAMINOPHEN 5-325 TAB PO PRN ×2 (09:35→17:36)
--- NOTE | 2016-09-03 12:58 | Progress Note ---
Subjective Date of Service: September 03, 2016. Subjective Pt evaluation today including: conversation w/ patient, physical exam, lab review, review of studies, review of inpatient medication list Saw/examined the patient in room 351 He's seated in a chair, pain controlled with medications +bowel movement earlier today Problem List Medical Problems: (1) Acute back pain Status: Acute (2) Ambulatory dysfunction Status: Acute (3) Compression fracture of fifth lumbar vertebra Status: Acute (4) Low back pain Status: Acute Review of Systems Respiratory: No shortness of breath Cardiac: No chest pain Abdomen: No GI bleeding, No constipation, No diarrhea, No nausea, No pain, No vomiting Musculoskeletal: + joint pain (pain controlled with medications) Medications Current Inpatient Medications Medications (Trade) Dose Ordered Sig/Pat Route Start Time Stop Time Status Last Admin Dose Admin Acetaminophen (Tylenol Tab) 650 mg Q4H PRN PO 09/01/16 03:30 10/01/16 03:29 Al Hydrox/Mg Hydrox/Simethicone (Maalox Max Susp) 15 ml Q4H PRN PO 09/01/16 03:30 10/01/16 03:29 Magnesium Hydroxide (Milk Of Magnesia Susp) 30 ml Q6H PRN PO 09/01/16 03:30 10/01/16 03:29 09/02/16 23:49 30 ML Polyethylene (Miralax Powder Packet) 17 gm DAILY PRN PO 09/01/16 03:30 10/01/16 03:29 09/02/16 21:41 17 GM Ondansetron HCl (Zofran Inj) 4 mg Q6H PRN IV 09/01/16 03:30 10/01/16 03:29 09/03/16 04:40 4 MG Aspirin (Ecotrin Tab) 81 mg HS PO 09/01/16 21:00 10/01/16 20:59 09/02/16 21:39 81 MG Cholecalciferol (Vitamin D Tab) 1,000 inter.unit DAILY PO 09/01/16 09:00 10/01/16 08:59 09/03/16 09:32 1,000 INTER.UNIT Finasteride (Proscar Tab) 5 mg HS PO 09/01/16 21:00 10/01/16 20:59 09/02/16 21:40 5 MG Metoprolol Tartrate (Lopressor Tab) 50 mg BID PO 09/01/16 09:00 10/01/16 08:59 09/03/16 09:32 50 MG Multivitamins (Multivitamin Tab) 1 tab DAILY PO 09/01/16 09:00 10/01/16 08:59 09/03/16 09:32 1 TAB Oxycodone/ Acetaminophen (Percocet 5-325mg Tab) 1 tab Q4H PRN PO 09/01/16 03:30 09/15/16 03:29 09/03/16 09:35 1 TAB Pravastatin Sodium (Pravachol Tab) 20 mg HS PO 09/01/16 21:00 10/01/16 20:59 09/02/16 21:39 20 MG Artificial Tears (Artificial Tears) 1 drops BID OPB 09/01/16 09:00 10/01/16 08:59 09/03/16 09:31 1 DROPS Hydromorphone HCl (Dilaudid Inj) 0.5 mg Q4 PRN IV 09/01/16 03:30 09/15/16 03:29 09/01/16 07:30 0.5 MG Miscellaneous (Iv Fluids Completed) 1 ea PRN PRN N/A 09/01/16 05:00 09/01/17 04:59 Hydralazine HCl (HydrALAZINE INJ) 10 mg Q6 PRN IV. 09/01/16 05:15 10/01/16 05:14 09/01/16 05:15 10 MG Docusate Sodium (coLACE CAP) 100 mg BID PO 09/01/16 21:00 10/01/16 20:59 09/03/16 09:31 100 MG Pneumococcal Polysaccharide Vaccine 1 ea PRN PRN N/A 09/01/16 14:45 10/01/16 14:44 Influenza Virus Vacc Triv Types A&B 1 ea PRN PRN N/A 09/01/16 14:45 10/01/16 14:44 Oxycodone HCl (Roxicodone Immediate Rel Tab) 5 mg Q4H PRN PO 09/01/16 14:45 09/15/16 14:44 09/01/16 21:50 5 MG Hydromorphone HCl (Dilaudid Inj) `If PO analgesic is order... Q3H PRN IV 09/01/16 14:45 09/15/16 14:44 Polyethylene (Miralax Powder Packet) 17 gm DAILY PO 09/04/16 09:00 10/04/16 08:59 Bisacodyl (Dulcolax Tab) 5 mg DAILY PRN PO 09/03/16 06:00 10/03/16 05:59 Bisacodyl (Dulcolax Supp) 10 mg DAILY PRN [place] 09/03/16 06:00 10/03/16 05:59 Senna (Senokot Tab) 8.6 mg QAM PO 09/02/16 12:30 10/02/16 12:29 09/03/16 09:32 8.6 MG Objective Vital Signs Date Time Temp Pulse Resp B/P Pulse Ox O2 Delivery O2 Flow Rate FiO2 09/03/16 08:00 Room Air 09/03/16 07:32 36.7 94 19 163/79 92 Room Air 09/02/16 23:45 Room Air 09/02/16 22:55 36.9 82 16 146/75 92 Room Air 09/02/16 21:28 89 161/82 09/02/16 15:25 93 Room Air 09/02/16 14:53 37.1 81 16 116/65 93 Room Air Physical Exam General Appearance: no apparent distress Respiratory/Chest: lungs clear, normal breath sounds, no respiratory distress, no accessory muscle use Cardiovascular: regular rate, rhythm, no edema, no murmur Abdomen: normal bowel sounds, non tender, soft Extremities: normal inspection, no pedal edema, + pertinent finding (+drain still in place) Laboratory Results Last 24 Hours Test 09/03/16 07:45 White Blood Count 21.71 K/uL Red Blood Count 5.30 M/uL Hemoglobin 14.5 g/dL Hematocrit 43.7 % Mean Corpuscular Volume 82.5 fL Mean Corpuscular Hemoglobin 27.4 pg Mean Corpuscular Hemoglobin Concent 33.2 g/dl Platelet Count 360 K/uL Mean Platelet Volume 9.4 fL Neutrophils (%) (Auto) 80.4 % Lymphocytes (%) (Auto) 6.1 % Monocytes (%) (Auto) 12.1 % Eosinophils (%) (Auto) 0.3 % Basophils (%) (Auto) 0.1 % Neutrophils # (Auto) 17.44 K/uL Lymphocytes # (Auto) 1.33 K/uL Monocytes # (Auto) 2.63 K/uL Eosinophils # (Auto) 0.07 K/uL Basophils # (Auto) 0.03 K/uL RDW Standard Deviation 40.8 fL RDW Coefficient of Variation 13.5 % Immature Granulocyte % (Auto) 1.0 % Immature Granulocyte # (Auto) 0.21 K/uL Sodium Level 138 mmol/L Potassium Level 3.9 mmol/L Chloride Level 102 mmol/L Carbon Dioxide Level 29 mmol/L Anion Gap 7.0 mmol/L Blood Urea Nitrogen 16 mg/dl Creatinine 0.51 mg/dl Est Creatinine Clear Calc Drug Dose 140.9 ml/min Estimated GFR () 116.0 Estimated GFR (Non- 100.1 BUN/Creatinine Ratio 31.9 Random Glucose 120 mg/dl Calcium Level 8.9 mg/dl Magnesium Level 2.8 mg/dl Assessment and Plan This is an 81 year old male with PMH of HTN, HLD, BPH, previous T11 fracture s/ p vertebroplasty in 2007 presents with low back pain; was admitted here with the compression fracture; discharged to [facility]; did well, but pain recurred when he went home Compression Fracture of L5 5 POD #2 PT/OT; pain controlled with medications d/c to [facility] if okay with ortho 09/02 doing well post-operatively, POD #1 PT/OT pain is controlled with medications no bowel movement yet 09/01 s/p decompression and kyphoplasty pain now controlled PT/OT in AM (09/02) appreciate ortho input Roxicodone PRN and Dilaudid PRN for pain bowel regimen as per ortho DVT ppx as per ortho; SCDs for now HTN BP controlled continue home medications pain meds PRN BPH continue home medications DVT ppx as per ortho FULL CODE
[2016-09-03 15:02] VITALS: BP 137/76; PULSE 79; TEMP 36.5; O2SAT 93
--- NOTE | 2016-09-03 16:12 | PROGRESS NOTE ---
DATE: 09/03/2016 DATE: 09/03/2016. SUBJECTIVE: Back pain is markedly improved. Leg pain improved. Vital signs stable. T-max 36.7. MADY drained 50 mL today. Bowels are working well. OBJECTIVE: On exam, the patient is in chair at bedside. Has good strength to testing. Appears comfortable. ASSESSMENT: Status post kyphoplasty decompression with good progress. PLAN: At this time, I anticipate being able to remove his drain tomorrow and discharge to [place].
[2016-09-03 22:09] VITALS: BP 132/75; PULSE 89
[2016-09-03] MEDS: PRAVASTATIN SOD 20 MG TAB PO SCH (22:10)
[2016-09-03] MEDS: FINASTERIDE 5 MG TAB PO SCH (22:10)
[2016-09-03] MEDS: ASPIRIN 81 MG ECTAB PO SCH (22:10)
[2016-09-04 00:50] VITALS: BP 147/77; PULSE 79; TEMP 36.7; O2SAT 95
[2016-09-04] MEDS: OXYCODONE/ACETAMINOPHEN 5-325 TAB PO PRN ×2 (05:33→11:43)
[2016-09-04 06:53] VITALS: BP 137/78; PULSE 77; TEMP 36.9; O2SAT 92
[2016-09-04 07:10] LABS: BASO % 0.3 %; BASO ABS # 0.04 K/uL (0-0.2); COMPLETE YES; EOS % 2.2 %; HEMATOCRIT 39.4 % (42-52); LYMPH % 13.2 %; LYMPH ABS # 1.74 K/uL (1.2-3.4); MEAN CELL VOLUME 82.3 fL (80-100); MEAN CORPUSCULAR HEMOGLOBIN 26.9 pg (25-34); MEAN CORPUSCULAR HGB CONC 32.7 g/dl (32-36); MEAN PLATELET VOLUME 9.1 fL (7.4-10.4); MONO % 14.2 %; NEUT % 69.1 %; PLATELET COUNT 313 K/uL (130-400); RED BLOOD COUNT 4.79 M/uL (4.7-6.1); WHITE BLOOD COUNT 13.21 K/uL (4.8-10.8)
[2016-09-04 07:42] LABS: BUN/CREATININE RATIO 27.3 (10-20); CALCIUM 8.7 mg/dl (8.5-10.1); CREATININE 0.44 mg/dl (0.60-1.40); MAGNESIUM 2.5 mg/dl (1.8-2.4); POTASSIUM 4.1 mmol/L (3.5-5.1)
[2016-09-04] MEDS: SENNA 8.6 MG TAB PO SCH (08:52)
[2016-09-04] MEDS: CHOLECALCIFEROL 1000 INTER.UNIT TAB PO SCH (08:52)
[2016-09-04] MEDS: MULTIVITAMIN TAB PO SCH (08:52)
[2016-09-04] MEDS: METOPROLOL TARTRATE 50 MG TAB PO SCH (08:52)
[2016-09-04] MEDS: DOCUSATE SODIUM 100 MG CAP PO SCH (08:52)
[2016-09-04] MEDS: ARTIFICIAL TEARS OP SOLN OPB SCH ×2 (08:53)
[2016-09-04] MEDS ORDERED: POLYETHYLENE (MIRALAX) 17 GM PACK PO SCH (09:00)
--- NOTE | 2016-09-04 11:01 | Progress Note ---
Subjective Date of Service: September 04, 2016. Subjective Pt evaluation today including: conversation w/ patient, conversation w/ family , physical exam, lab review, review of studies, conversation w/ international travel consultant, review of inpatient medication list Saw/examined the patient in room 351 No significant pain, doing well, ambulating well +BM Problem List Medical Problems: (1) Acute back pain Status: Acute (2) Ambulatory dysfunction Status: Acute (3) Compression fracture of fifth lumbar vertebra Status: Acute (4) Low back pain Status: Acute Review of Systems Respiratory: No cough, No shortness of breath, No sputum Cardiac: No chest pain Abdomen: No constipation, No diarrhea, No nausea, No pain, No vomiting Musculoskeletal: No joint pain (controlled with medications) Medications Current Inpatient Medications Medications (Trade) Dose Ordered Sig/Pat Route Start Time Stop Time Status Last Admin Dose Admin Acetaminophen (Tylenol Tab) 650 mg Q4H PRN PO 09/01/16 03:30 10/01/16 03:29 Al Hydrox/Mg Hydrox/Simethicone (Maalox Max Susp) 15 ml Q4H PRN PO 09/01/16 03:30 10/01/16 03:29 Magnesium Hydroxide (Milk Of Magnesia Susp) 30 ml Q6H PRN PO 09/01/16 03:30 10/01/16 03:29 09/02/16 23:49 30 ML Polyethylene (Miralax Powder Packet) 17 gm DAILY PRN PO 09/01/16 03:30 10/01/16 03:29 09/02/16 21:41 17 GM Ondansetron HCl (Zofran Inj) 4 mg Q6H PRN IV 09/01/16 03:30 10/01/16 03:29 09/03/16 04:40 4 MG Aspirin (Ecotrin Tab) 81 mg HS PO 09/01/16 21:00 10/01/16 20:59 09/03/16 22:10 81 MG Cholecalciferol (Vitamin D Tab) 1,000 inter.unit DAILY PO 09/01/16 09:00 10/01/16 08:59 09/04/16 08:52 1,000 INTER.UNIT Finasteride (Proscar Tab) 5 mg HS PO 09/01/16 21:00 10/01/16 20:59 09/03/16 22:10 5 MG Metoprolol Tartrate (Lopressor Tab) 50 mg BID PO 09/01/16 09:00 10/01/16 08:59 09/04/16 08:52 50 MG Multivitamins (Multivitamin Tab) 1 tab DAILY PO 09/01/16 09:00 10/01/16 08:59 09/04/16 08:52 1 TAB Oxycodone/ Acetaminophen (Percocet 5-325mg Tab) 1 tab Q4H PRN PO 09/01/16 03:30 09/15/16 03:29 09/04/16 05:33 1 TAB Pravastatin Sodium (Pravachol Tab) 20 mg HS PO 09/01/16 21:00 10/01/16 20:59 09/03/16 22:10 20 MG Artificial Tears (Artificial Tears) 1 drops BID OPB 09/01/16 09:00 10/01/16 08:59 09/04/16 08:53 1 DROPS Hydromorphone HCl (Dilaudid Inj) 0.5 mg Q4 PRN IV 09/01/16 03:30 09/15/16 03:29 09/01/16 07:30 0.5 MG Miscellaneous (Iv Fluids Completed) 1 ea PRN PRN N/A 09/01/16 05:00 09/01/17 04:59 Hydralazine HCl (HydrALAZINE INJ) 10 mg Q6 PRN IV. 09/01/16 05:15 10/01/16 05:14 09/01/16 05:15 10 MG Docusate Sodium (coLACE CAP) 100 mg BID PO 09/01/16 21:00 10/01/16 20:59 09/04/16 08:52 100 MG Pneumococcal Polysaccharide Vaccine 1 ea PRN PRN N/A 09/01/16 14:45 10/01/16 14:44 Influenza Virus Vacc Triv Types A&B 1 ea PRN PRN N/A 09/01/16 14:45 10/01/16 14:44 Oxycodone HCl (Roxicodone Immediate Rel Tab) 5 mg Q4H PRN PO 09/01/16 14:45 09/15/16 14:44 09/01/16 21:50 5 MG Hydromorphone HCl (Dilaudid Inj) `If PO analgesic is order... Q3H PRN IV 09/01/16 14:45 09/15/16 14:44 Polyethylene (Miralax Powder Packet) 17 gm DAILY PO 09/04/16 09:00 10/04/16 08:59 09/04/16 08:52 17 GM Bisacodyl (Dulcolax Tab) 5 mg DAILY PRN PO 09/03/16 06:00 10/03/16 05:59 Bisacodyl (Dulcolax Supp) 10 mg DAILY PRN [place] 09/03/16 06:00 10/03/16 05:59 Senna (Senokot Tab) 8.6 mg QAM PO 09/02/16 12:30 10/02/16 12:29 09/04/16 08:52 8.6 MG Objective Vital Signs Date Time Temp Pulse Resp B/P Pulse Ox O2 Delivery O2 Flow Rate FiO2 09/04/16 08:00 Room Air 09/04/16 06:53 36.9 77 17 137/78 92 Room Air 09/04/16 00:50 36.7 79 18 147/77 95 Room Air 09/04/16 00:00 Room Air 09/03/16 22:09 89 132/75 09/03/16 15:40 Room Air 09/03/16 15:02 36.5 79 18 137/76 93 Room Air Physical Exam General Appearance: no apparent distress Respiratory/Chest: lungs clear, normal breath sounds, no respiratory distress, no accessory muscle use Cardiovascular: regular rate, rhythm, no edema, no murmur Abdomen: normal bowel sounds, non tender, soft Extremities: normal inspection, no pedal edema, + pertinent finding (drain removed) Laboratory Results Last 24 Hours Test 09/04/16 07:01 White Blood Count 13.21 K/uL Red Blood Count 4.79 M/uL Hemoglobin 12.9 g/dL Hematocrit 39.4 % Mean Corpuscular Volume 82.3 fL Mean Corpuscular Hemoglobin 26.9 pg Mean Corpuscular Hemoglobin Concent 32.7 g/dl Platelet Count 313 K/uL Mean Platelet Volume 9.1 fL Neutrophils (%) (Auto) 69.1 % Lymphocytes (%) (Auto) 13.2 % Monocytes (%) (Auto) 14.2 % Eosinophils (%) (Auto) 2.2 % Basophils (%) (Auto) 0.3 % Neutrophils # (Auto) 9.13 K/uL Lymphocytes # (Auto) 1.74 K/uL Monocytes # (Auto) 1.88 K/uL Eosinophils # (Auto) 0.29 K/uL Basophils # (Auto) 0.04 K/uL RDW Standard Deviation 40.4 fL RDW Coefficient of Variation 13.4 % Immature Granulocyte % (Auto) 1.0 % Immature Granulocyte # (Auto) 0.13 K/uL Sodium Level 140 mmol/L Potassium Level 4.1 mmol/L Chloride Level 103 mmol/L Carbon Dioxide Level 32 mmol/L Anion Gap 5.0 mmol/L Blood Urea Nitrogen 12 mg/dl Creatinine 0.44 mg/dl Est Creatinine Clear Calc Drug Dose 163.3 ml/min Estimated GFR () 123.3 Estimated GFR (Non- 106.4 BUN/Creatinine Ratio 27.3 Random Glucose 98 mg/dl Calcium Level 8.7 mg/dl Magnesium Level 2.5 mg/dl Assessment and Plan This is an 81 year old male with PMH of HTN, HLD, BPH, previous T11 fracture s/ p vertebroplasty in 2007 presents with low back pain; was admitted here with the compression fracture; discharged to [facility]; did well, but pain recurred when he went home Compression Fracture of L5 09/04 POD #3 doing well plan is to d/c to [place] today 09/03 POD #2 PT/OT; pain controlled with medications d/c to [facility] if okay with ortho 09/02 doing well post-operatively, POD #1 PT/OT pain is controlled with medications no bowel movement yet 09/01 s/p decompression and kyphoplasty pain now controlled PT/OT in AM (09/02) appreciate ortho input Roxicodone PRN and Dilaudid PRN for pain bowel regimen as per ortho DVT ppx as per ortho; SCDs for now HTN BP controlled continue home medications pain meds PRN BPH continue home medications DVT ppx as per ortho FULL CODE
[2016-09-04] MEDS ORDERED: OXYC-643 PO (11:03)
[2016-09-04] MEDS ORDERED: DLC5 PO (11:04)
[2016-09-04] MEDS ORDERED: MRLP17X PO (11:04)
[2016-09-04] MEDS ORDERED: CLC100 PO (11:04)
--- NOTE | 2016-09-04 11:07 | Discharge Instructions ---
Discharge Instructions Date of Service September 04, 2016. Admission Reason for Admission: Acute Back Pain, Ambulatory Dysfunction Discharge Discharge Diagnosis / Problem: L5 compression fracture s/p kyphoplasty and decompression Discharge Goals Goal(s): Decrease discomfort, Improve function, Diagnostic testing, Therapeutic intervention Activity Recommendations Activity Limitations: resume your previous activity Lifting Limitations: no more than 5 pounds Exercise/Sports Limitations: as tolerated May Resume Sexual Activity: when tolerated Shower/Bathe: no limitations Driving or Machine Use: . Instructions / Follow-Up Instructions / Follow-Up Please follow-up with your primary care after stay at [place] follow-up with orthopedics after [place] Current Hospital Diet Patient's current hospital diet: AHA Diet (Heart Healthy) Discharge Diet Recommended Diet: AHA Diet (Heart Healthy) Procedures Procedures Performed: L4-L5, L5-S1 Decompression; L5 Kyphoplasty Pending Studies Studies pending at discharge: no Medical Emergencies . Who to Call and When: Medical Emergencies: If at any time you feel your situation is an emergency, please call 911 immediately. . Non-Emergent Contact Non-Emergency issues call your: Primary Care Provider, Surgeon . . "Provider Documentation" section prepared by Don Marion. . VTE Core Measure Inpt VTE Proph given/why not?: SCD's [place] Drug Monitoring Program Search Results: patient reviewed within database, no issues identified
--- NOTE | 2016-09-04 11:09 | Discharge Summary ---
Discharge Summary Date of Service September 04, 2016. Discharge Summary Admission Date: September 01, 2016 at 10:45 Discharge Date: September 04, 2016 Discharge Disposition: [facility] facility Principal Diagnosis: L5 Compression Fracture s/p kyphoplasty/decompression Medication Reconciliation New Medications: Bisacodyl (Bisacodyl EC) 5 Mg Tabec 5 MG PO DAILY PRN for Constipation for 10 Days, #10 TABS Docusate Sodium (Docusate Sodium) 100 Mg Cap 100 MG PO BID for 10 Days, #20 CAP Polyethylene (Miralax) 17 Gm Pow 17 GM PO DAILY PRN for Constipation for 10 Days, #10 PKT Continued Medications: Amoxicillin (Amoxil) 500 Mg Cap 2000 MG PO UD PRN for Prior to Dental Work, CAP Aspirin (Aspirin Ec) 81 Mg Tab 81 MG PO HS Cholecalciferol (Vitamin D3) 1,000 Unit Tab 1000 INTER.UNIT PO DAILY, TAB Finasteride (Finasteride) 5 Mg Tab 5 MG PO HS [id number] (Artificial Tears) 1 [place] 1 DROP OPB BID Ibuprofen Tab (Advil) 200 Mg Tab 200-600 MG PO Q4H PRN for Pain, TAB Metoprolol Tartrate (Lopressor) (Lopressor) 50 Mg Tab 50 MG PO BID, TAB Multivitamin (Multivitamin) Tab 1 TAB PO DAILY Oxycodone/Acetaminophen 5MG/325MG (Oxycodone/Acetaminophen 5MG/325MG) 1 Tab Tab 1 TAB PO Q4H PRN for Moderate/Severe Pain for 3 Days, #12 TABS (This prescription has been renewed) Pravastatin Sod (Pravastatin Sodium) 20 Mg Tab 20 MG PO HS Admission Information Physical Exam (per Admitting): DATE OF ADMISSION: 09/01/2016 CHIEF COMPLAINT: Severe back pain and fall. HISTORY OF PRESENT ILLNESS: This is an 81-year-old male with past medical history significant for BPH, hyperlipidemia, hypertension, and history of lumbar spinal stenosis who was recently in the hospital for the low back pain and was found to have subacute compression fracture and was sent to [facility]. The patient was discharged from [facility] yesterday and came home and today while he was walking in his house, he fell down, his legs just gave out. He says that whenever he is lying, his pain is in the back, 5/10 in severity and whenever he tries to move, his pain shoots down into his legs. Denies any bowel or bladder incontinence, no fever, no chills, no chest pain, no shortness of breath, no headaches, no blurred vision, no nausea, no vomiting. Appetite is okay. Currently, resting comfortably and hemodynamically stable. ALLERGIES: No known drug allergies. PAST MEDICAL HISTORY: As mentioned above. PAST SURGICAL HISTORY: History of hernia repair, history of vertebroplasty at T11 in 2018, history of total knee arthroplasties, and cholecystectomy. MEDICATIONS: The patient is on Lopressor 50 mg p.o. b.i.d., pravastatin 20 mg p.o. daily, amoxicillin 2 g as needed, Proscar 5 mg p.o. daily, Advil p.r.n., vitamin D 1000 units p.o. daily, aspirin 81 mg p.o. daily, multivitamin p.o. daily, and hydrocodone/acetaminophen 5/325 mg one tablet every 4 hours p.r.n. pain. FAMILY HISTORY: Significant for mother had arthritis, at the age of 86. Father has hypertension. Mother also had hypertension. Brother has CAD. SOCIAL HISTORY: Never smoked. Alcohol occasional. No drug use. . REVIEW OF SYMPTOMS: As per HPI. Rest of review of symptoms negative. PHYSICAL EXAMINATION: GENERAL: The patient is obese, not in distress. VITAL SIGNS: Temperature 36.7, pulse 87, respiratory rate 18, blood pressure 142/80, and 93% room air. HEENT: No pallor, no icterus. Pupils equal, round, and reactive to light. NECK: No JVD, no neck masses, no carotid bruits. CARDIOVASCULAR: S1, S2 heard, regular rate and rhythm, no murmur, no gallop. RESPIRATORY SYSTEM: Clear to auscultation bilaterally. No wheezing, no crackles. ABDOMEN: Soft, bowel sounds present. Nontender. No distention. CENTRAL NERVOUS SYSTEM: Nonfocal. EXTREMITIES: Mild lower extremity edema present. Right-sided straight leg raise test positive. LABS: WBC 13, hemoglobin 14.2, hematocrit 42, platelets 323. Sodium 141, potassium 4.1, chloride 103, bicarbonate 32, BUN 17, creatinine 0.7, serum glucose 108, calcium 9.1. MRI done in the ER shows compression fracture of T12, post-septoplasty, subacute fracture L5 vertebral body similar to prior CT, mild retropulsion associated epidural hemorrhage post L5 vertebral body in combination of facet arthroplasty causing moderate L4-L5 canal narrowing and [id number] narrowing of the left lateral recess possibly compressing the transverse left fifth nerve root, also moderate narrowing of the right lateral recess and mild bilateral foramen narrowing, conus medullaris terminates at L1-L2 and distal cord is normal . ASSESSMENT AND PLAN: An 81-year-old male who recently had a fall and a compression fracture of the L5 vertebral body, was in rehab secondary to ambulatory dysfunction and back pain. 1. Ambulatory dysfunction and back pain, MRI shows subacute fracture of the L5 vertebral body similar to prior CT scan, but also shows some retropulsion and epidural hemorrhage posterior to the L5 vertebral body in combination with facet arthropathy causing moderate L4-L5 canal narrowing and [id number] narrowing of the left lateral recess, possibly compressing the transversing left nerve root. We will admit to medical floor, pain control and consult orthopedics for further recommendations.No bowel or bladder incontinence. No apparent weakness 2. Hypertension, continue his home medications of metoprolol. 3. Hyperlipidemia, continue statin. 4. Benign prostatic hypertrophy, continue Proscar. 5. Deep venous thrombosis prophylaxis heparin subQ, SCDs. 6. Disposition: Admit to med/surg, await ortho recommendations. PT and OT prior to discharge. Social service will help with discharge planning. Level 1 full code. Hospital Course This is an 81 year old male with PMH of HTN, HLD, BPH, previous T11 fracture s/ p vertebroplasty in 2007 presents with low back pain; was admitted here with the compression fracture; discharged to [facility]; did well, but pain recurred when he went home Compression Fracture of L5 09/04 POD #3 doing well plan is to d/c to [place] today 09/03 POD #2 PT/OT; pain controlled with medications d/c to [facility] if okay with ortho 09/02 doing well post-operatively, POD #1 PT/OT pain is controlled with medications no bowel movement yet 09/01 s/p decompression and kyphoplasty pain now controlled PT/OT in AM (09/02) appreciate ortho input Roxicodone PRN and Dilaudid PRN for pain bowel regimen as per ortho DVT ppx as per ortho; SCDs for now HTN BP controlled continue home medications pain meds PRN BPH continue home medications DVT ppx as per ortho FULL CODE Total time spent on discharge = 25 minutes This includes examination of the patient, discharge planning, medication reconciliation, and communication with other providers. Discharge Instructions Please follow-up with your primary care after stay at [place] follow-up with orthopedics after [place]
[2016-09-04 11:26] VITALS: BP 137/78; PULSE 77; TEMP 36.9; O2SAT 92
[2016-09-27] MEDS ORDERED: ACET-1047 PO (15:52)
== END 2016-09-04 12:49 | DRG 517 ==
LOC: ENRESERVDT → ENRESERVTM → EDBD 21:50 → C.EDC 21:52 → C.MSW 09-01 03:33 → OBSVTOIN 09-01 10:45
PROVIDERS: ADMIT Internal Medicine; ATTEND Family Medicine
PROC: 0QB00ZZ Excision of Lumbar Vertebra, Open Approach (ICD-10-PCS; principal; 2016-09-01 13:15)
PROC: 0QU00JZ Supplement Lumbar Vertebra with Synthetic Substitute, Open Approach (ICD-10-PCS; principal; 2016-09-01 13:15)
DX: S32.059A Unspecified fracture of fifth lumbar vertebra, initial encounter for closed fracture (principal); N40.0 Benign prostatic hyperplasia without lower urinary tract symptoms; E78.5 Hyperlipidemia, unspecified; I10 Essential (primary) hypertension; Z96.653 Presence of artificial knee joint, bilateral; W19.XXXA Unspecified fall, initial encounter; Z90.49 Acquired absence of other specified parts of digestive tract; Z79.82 Long term (current) use of aspirin

== ENCOUNTER 2016-09-24 11:23 | Inpatient (IN) | payer OTHER, MEDICARE ==
[~2016-09-24] VITALS: Ht 177.8 cm; Wt 113.1 kg
[~2016-09-24 11:23] MED LIST changes: +CLC100 PO; +DLC5 PO; -FINA5TAB PO; +MRLP17X PO; -OXYC-57 PO; +OXYC-643 PO; -PRAV20TA PO; +PRS5 PO; +PRVC/20 PO
[2016-09-24] MEDS ORDERED: ONDANSETRON INJ 2 MG/ML 2 ML VIAL IV STA (11:57)
[2016-09-24] MEDS ORDERED: MoRPHine SULFATE 4 MG/ML 1 ML CARP\\VIAL IV STA (11:57)
--- NOTE | 2016-09-24 12:05 | EMERGENCY ROOM VISIT NOTE ---
History First contact with patient: 11:45 Chief Complaint: FALL Stated Complaint: FALL History of Present Illness The patient is a 81 year old male who presents to the Emergency Room accompanied by daughter with complaints of "fall". The patient today around 10 AM was at a follow-up appointment with Dr. Duenas, at [facility] for follow-up regarding a recent spinal fusion performed by Dr. Ball of [facility] [place]. The patient states that he is doing well, however walking into the appointment he tripped over his walker, and his daughter notes he fell onto his left side. He notes minimal pain in the low back prior to the fall, but the pain is now an 8/10 in the thoracic, lumbar and left hip region. He has been sent here for further evaluation. He denies loss of consciousness or striking his head. Denies any dizziness, however the patient does note that his left leg appears to be weak over the past few days. He is unable to lift his left leg well. He believes that he fell because the carpet rolled up underneath his feet. He denies any chest pain, shortness of breath, syncope. He denies any fevers or chills. Review of Systems A complete 10-point Review of Systems was discussed with the patient, with pertinent positives and negatives listed in the History of Present Illness. All remaining Review of Systems questions can be considered negative unless otherwise specified. Past Medical/Surgical History Medical Problems: (1) BPH (benign prostatic hyperplasia) (2) Compression fracture of fifth lumbar vertebra (3) Fall (4) HLD (hyperlipidemia) (5) Hypertension (6) Lumbar stenosis with neurogenic claudication Surgical Problems: (1) H/O hernia repair (2) H/O vertebroplasty (3) History of total knee arthroplasty (4) Hx of cholecystectomy Family History FH: heart disease Hypertension Social History Smoking Status: Never Smoker Drug Use: none Marital Status: Housing Status: lives alone Occupation Status: retired Current/Historical Medications Scheduled Acetaminophen (Mapap), 650 MG PO TID Alendronate Sodium (Alendronate Sodium), 70 MG PO THURSDAYS ONLY Aspirin (Aspirin Ec), 81 MG PO HS Cholecalciferol (Vitamin D3), 1,000 INTER.UNIT PO DAILY Docusate Sodium (Docusate Sodium), 100 MG PO BID Finasteride (Finasteride), 5 MG PO HS Lziegjqj-Vrzbazhbvktt-Jdmcllph (Artificial Tears), 1 DROP OPB BID Metoprolol Tartrate (Lopressor) (Lopressor), 50 MG PO BID Multivitamin (Multivitamin), 1 TAB PO DAILY Pravastatin Sod (Pravastatin Sodium), 20 MG PO HS Scheduled PRN Amoxicillin (Amoxil), 2,000 MG PO UD PRN for Prior to Dental Work Ibuprofen Tab (Advil), 200-600 MG PO Q4H PRN for Pain Allergies Coded Allergies: No Known Allergies (Verified , 09/24/16) Physical Exam Vital Signs Date Time Temp Pulse Resp B/P (MAP) Pulse Ox O2 Delivery O2 Flow Rate FiO2 09/24/16 16:44 Room Air 09/24/16 16:08 87 20 162/90 95 Room Air 09/24/16 14:42 90 18 133/65 94 Room Air 09/24/16 13:26 86 18 144/72 95 Room Air 09/24/16 12:15 96 Room Air 09/24/16 12:03 88 09/24/16 11:29 36.7 87 18 156/81 95 Room Air Physical Exam VITAL SIGNS - Vital signs and nursing notes were reviewed. Patient is afebrile , hypertensive at 156/81, non-tachycardic and is saturating well on room air at 95%. GENERAL -81-year-old male appearing his stated age who is in no acute distress. Communicates well with provider and answers questions appropriately. SKIN - Without rashes. The skin overlying the recent spinal surgery is well- appearing. No wound dehiscence. There is a 4 cm thin clear suture-like material protruding from the superior most aspect of this incision. There is no bleeding or evidence of infection. HEAD - NC/AT. No flowers signs or raccoons eyes. EYES - PERRL with EOMI bilaterally. Sclera anicteric. Palpebral conjunctiva pink and moist with no injection noted. EARS - No deformities of external structures noted on gross examination bilaterally. No pain elicited with palpation of the tragus bilaterally. External auditory canals without discharge or otorrhea. Tympanic membranes pearly guillen without retraction or bulging. No fluid or purulent material visualized behind the TM. Handle of malleus, umbo, cone of light, pars tensa/ flaccid all easily visualized. No hemotympanum. NOSE - Midline and without cyanosis. No epistaxis or purulent drainage noted. Septum midline without deviation or septal hematoma noted. MOUTH/OROPHARYNX - Without perioral cyanosis. Buccal mucosa pink and moist and without leukoplakia. Tongue midline with equal elevation of palate bilaterally. No tonsillar hypertrophy, erythema, or exudates noted. Fair dentition noted. NECK - Neck with FROM. Supple to palpation. No C-spine tenderness LUNGS - Chest wall symmetric without accessory muscle use, intercostals retractions, or central cyanosis. Normal vesicular breath sounds CTA B/L. No wheezes, rales, or rhonchi appreciated. CARDIAC - RRR with S1/S2. No murmur, rubs, or gallops appreciated. ABDOMEN - Abdominal contour without pulsations or visible masses. BS normoactive all four quadrants. No tenderness, palpable masses, hepatosplenomegaly, or ascites noted. MUSCULOSKELETAL: There is tenderness to palpation overlying the left hip, thoracic spinous processes and lumbar region. There is also tenderness on the left proximal thigh. EXTREMITIES - No clubbing or peripheral cyanosis. No pretibial edema present. Patient is able to actively flex at the right hip without difficulty. The same exercise on the left elicits severe deficit with weakness. NEUROLOGIC - Cranial nerves II through XII grossly intact. Sensory intact to light touch throughout.. PSYCH - . Pt is very pleasant and interacts well with examiner. Medical Decision & Procedures ER Provider Diagnostic Interpretation: CT OF THE HEAD WITHOUT CONTRAST CLINICAL HISTORY: Fall. Left leg weakness. COMPARISON STUDY: No previous studies for comparison. TECHNIQUE: Helical axial images of the head were obtained without IV contrast. Automated exposure control was utilized for the study. FINDINGS: No acute intracranial hemorrhage, midline shift or mass effect is present. Ventricular system is unremarkable for age. The basilar cisterns are patent. There are no extra-axial collections. Basilar cisterns are patent. Note is made of a 1.6 cm hypodensity within the right cerebellar hemisphere. There is no calvarial fracture. Visualized portions of the sinuses and mastoid air cells are clear. IMPRESSION: 1. No acute intracranial findings. 2. No calvarial fracture. 3. 1.6 cm hypodensity within the right cerebellar hemisphere. This is nonspecific although could reflect an old infarct or arachnoid cyst. Electronically signed by: Brad Hinson M.D. 09/24/2016 1:00 PM Dictated Date/Time: 09/24/2016 12:[address] THORACIC SPINE WITHOUT CLINICAL HISTORY: Fall. Thoracic pain. Recent spine surgery. TECHNIQUE: Axial images of the thoracic spine were obtained without IV contrast. Sagittal and coronal reconstructions were viewed. COMPARISON STUDY: Thoracic spine MRI May 18, 2007 and fluoroscopic images May 19, 2007. FINDINGS: An old T11 compression fracture with moderate loss of vertebral body height is noted. Hyperdense material reflects prior kyphoplasty. There is slight loss of height of the superior endplate of T5 which is unchanged since MRI of May 18, 2007. There is no acute thoracic spine fracture. Slight concavity of the superior endplate of T7 is also unchanged. Paravertebral soft tissues are unremarkable. Central canal and neural foramen are suboptimally assessed by CT. No acute fractures are identified within visualized portions of the posterior ribs. IMPRESSION: 1. No acute thoracic spine fracture or subluxation. 2. Old T11 compression fracture status post kyphoplasty at this level. 3. No change in slight concavity of the superior endplates of T5 and T7 since MRI of May 18, 2007. Electronically signed by: Brad Hinson M.D. 09/24/2016 1:12 PM Dictated Date/Time: 09/24/2016 1:01 PM CHEST ONE VIEW PORTABLE CLINICAL HISTORY: Fall. COMPARISON STUDY: Chest radiograph October 09, 2007. FINDINGS: There is no pneumothorax. No definite pleural effusion is present. An apparent left pleural effusion is probably artifactual. Cardiac size is stable. There is no evidence of pulmonary edema. IMPRESSION: No acute cardiopulmonary findings. Electronically signed by: Brad Hinson M.D. 09/24/2016 2:39 PM Dictated Date/Time: 09/24/2016 2:[address] LUMBAR SPINE WITHOUT CT DOSE: CLINICAL HISTORY: Lumbar spine pain status post trauma TECHNIQUE: Helical images were acquired in transverse plane. Reformatted sagittal and coronal images were reviewed. CONTRAST: No contrast was administered COMPARISON STUDY: 08/31/2016 FINDINGS: L1-2 level: There is no evidence of significant disc bulge or focal herniation. There is no evidence of spinal or foraminal stenosis. L2-3 level: There is no evidence of significant disc bulge or focal herniation. There is no evidence of spinal or foraminal stenosis. L3-4 level: There is a circumferential disc bulge. There is mild to moderate spinal stenosis. There is minor bilateral foraminal narrowing. L4-5 level: There is a circumferential disc bulge. There are postlaminectomy changes. L5-S1 level: There is no evidence of significant disc bulge or focal herniation. There is no evidence of spinal or foraminal stenosis. Again evident is a superior endplate L5 compression fracture. Since the prior study, the patient has undergone a posterior laminectomy and vertebroplasty. Since the prior study, the patient has developed a subtle superior endplate L2 compression fracture. IMPRESSION: 1. Since the prior August 31 study, the patient has developed a subtle superior endplate L2 compression fracture 2. Subacute superior endplate L5 compression fracture status post vertebroplasty and posterior laminectomy 3. Circumferential disc bulge at the L3-4 level with mild to moderate spinal stenosis. Electronically signed by: Ranjeet Caballero M.D. 09/24/2016 1:17 PM Dictated Date/Time: 09/24/2016 1:[address] DOSE: 5163.49 mGy.cm HISTORY: Fall, thoracic, lumbar and left hip pain. Recent spinal surgery TECHNIQUE: Multiaxial CT images of the pelvis were performed and reformatted in the sagittal and coronal plane without the use of contrast. COMPARISON: Pelvis CT 08/18/2016. FINDINGS: Vertebroplasty at the L5 compression fracture. Mild offset within the coccyx, unchanged. Posterior decompression at L5. No acute fracture or dislocation within the pelvis or hips. The sacrum is intact. Mild osteoarthritis within the bilateral hips. Colonic diverticulosis. IMPRESSION: 1. No acute fracture or dislocation within the pelvis or hips. 2. L5 vertebroplasty. Electronically signed by: [place] M.D. 09/24/2016 1:35 PM Dictated Date/Time: 09/24/2016 1:08 PM LEFT FEMUR 2 VIEWS ROUTINE CLINICAL HISTORY: Left femur pain status post trauma COMPARISON: None. DISCUSSION: There are postsurgical changes of a total left knee arthroplasty. No fractures or dislocations are visualized. IMPRESSION: No fractures or dislocations identified. Electronically signed by: Ranjeet Caballero M.D. 09/24/2016 2:39 PM Dictated Date/Time: 09/24/2016 2:39 PM Laboratory Results Test 09/24/16 11:30 09/24/16 16:10 Immature Granulocyte % (Auto) 1.1 % White Blood Count 14.05 K/uL (4.8-10.8) Red Blood Count 5.40 M/uL (4.7-6.1) Hemoglobin 14.5 g/dL (14.0-18.0) Hematocrit 43.8 % (42-52) Mean Corpuscular Volume 81.1 fL (80-100) Mean Corpuscular Hemoglobin 26.9 pg (25-34) Mean Corpuscular Hemoglobin Concent 33.1 g/dl (32-36) Platelet Count 335 K/uL (130-400) Mean Platelet Volume 9.7 fL (7.4-10.4) Neutrophils (%) (Auto) 69.2 % Lymphocytes (%) (Auto) 14.1 % Monocytes (%) (Auto) 12.7 % Eosinophils (%) (Auto) 2.4 % Basophils (%) (Auto) 0.5 % Neutrophils # (Auto) 9.72 K/uL (1.4-6.5) Lymphocytes # (Auto) 1.98 K/uL (1.2-3.4) Monocytes # (Auto) 1.79 K/uL (0.11-0.59) Eosinophils # (Auto) 0.34 K/uL (0-0.5) Basophils # (Auto) 0.07 K/uL (0-0.2) Immature Granulocyte # (Auto) 0.15 K/uL (0.00-0.02) Prothrombin Time 10.8 SECONDS (9.0-12.0) Prothromb Time International Ratio 1.0 (0.9-1.1) Activated Partial Thromboplast Time 25.6 SECONDS (21.0-31.0) Partial Thromboplastin Ratio 1.0 Magnesium Level 2.4 mg/dl (1.8-2.4) Total Bilirubin 0.5 mg/dl (0.2-1) Aspartate Amino Transf (AST/SGOT) 17 U/L (15-37) Alanine Aminotransferase (ALT/SGPT) 27 U/L (12-78) Alkaline Phosphatase 80 U/L (45-117) Troponin I < 0.015 ng/ml (0-0.045) Pro-B-Type Natriuretic Peptide 302 pg/ml (0-1800) Total Protein 7.0 gm/dl (6.4-8.2) Albumin 3.0 gm/dl (3.4-5.0) Globulin 4.0 gm/dl (2.5-4.0) Albumin/Globulin Ratio 0.8 (0.9-2) Thyroid Stimulating Hormone (TSH) 1.630 uIu/ml (0.300-4.500) Urine Color DK YELLOW Urine Appearance CLEAR (CLEAR) Urine pH 6.0 (4.5-7.5) Urine Specific [place] 1.022 (1.000-1.030) Urine Protein NEG (NEG) Urine Glucose (UA) NEG (NEG) Urine Ketones NEG (NEG) Urine Occult Blood NEG (NEG) Urine Nitrite NEG (NEG) Urine Bilirubin NEG (NEG) Urine Urobilinogen NEG (NEG) Urine Leukocyte Esterase NEG (NEG) Medications Administered Medications (Trade) Dose Ordered Sig/Pat Route Start Time Stop Time Status Last Admin Dose Admin Morphine Sulfate (MoRPHine SULFATE INJ) 4 mg NOW STAT IV 09/24/16 11:57 09/24/16 12:01 DC 09/24/16 12:15 4 MG Ondansetron HCl (Zofran Inj) 4 mg NOW STAT IV 09/24/16 11:57 09/24/16 12:01 DC 09/24/16 12:14 4 MG Oxycodone/ Acetaminophen (Percocet 5-325mg Tab) 1 tab Q4H PRN PO 09/24/16 16:00 10/08/16 15:59 09/25/16 01:39 1 TAB Acetaminophen (Tylenol Tab) 650 mg Q4H PRN PO 09/24/16 16:00 10/24/16 15:59 09/25/16 20:14 650 MG Medical Decision Patient was seen and evaluated as above. After obtaining a thorough history and physical examination IV access was initiated workup was performed. Patient presents today status post fall at his family doctor's office. CT scans and x- rays were obtained of the affected regions. For his pain he was given morphine and Zofran. He appears otherwise healthy. There is tenderness to palpation overlying the inferior spine. Patient does have a weakness of the left lower extremity which has been ongoing for the past few days. CT scan results as above. There is a new finding on the CT scan that is concerning for old infarct. I question the age of this is the patient does have a new deficit of the left lower extremity which was present before the fall. Thoracic spine unremarkable for acute process. CT of the lumbar region did reveal that the patient has a new superior endplate compression fracture. This is an interval development since prior study. Leukocytosis 14.05, coagulation studies unremarkable, carbon dioxide elevated at 33, troponin and BNP unremarkable. TSH also unremarkable. EKG reveals normal sinus rhythm, no ectopy or ischemic change. This was compared to previous and found to be of no significant change. Urine is unremarkable. I suspect the patient did suffer a mechanical fall, but I am concerned that due to the CT scan of the head findings as well as new onset leg weakness that there may be an underlying neurologic component. He appears to be otherwise neurovascularly intact status post fall with a new interval development of a subtle compression fracture. I believe that inpatient management is warranted, for further evaluation and management. He is a high fall risk. Case was discussed with my attending, and subsequently the hospitalist, who agreed to further evaluate the patient. Please refer to further documentation regarding the patient's stay. I did elect to place a page out to Dr. Ball, the ear specialist who performed the surgery, and I would like to consult regarding the new fracture. Unfortunate, the patient was taken up to the floor for admission before I was called back by said individual. I did however verify that a orthopedic consult was generated by the inpatient hospitalist. The patient also was found to have a bedsore,/pressure ulcer developing on the right superior gluteal region. Culture is pending. In evaluation treatment this patient following differential diagnoses were entertained: Stroke, CVA, mechanical fall, fracture, neurovascular deficits, cauda equina syndrome, among others. Impression Primary Impression: Fall Additional Impressions: Contusion of multiple sites Compression fracture of L2 Departure Information Dispostion Admitted as an inpatient Condition FAIR Referrals Booker Warren D.O. (PCP) Patient Instructions My [facility] Problem Qualifiers
[2016-09-24 12:19] LABS: BASO % 0.5 %; BASO ABS # 0.07 K/uL (0-0.2); COMPLETE YES; EOS % 2.4 %; HEMATOCRIT 43.8 % (42-52); IG% 1.1 %; LYMPH % 14.1 %; LYMPH ABS # 1.98 K/uL (1.2-3.4); MEAN CELL VOLUME 81.1 fL (80-100); MEAN CORPUSCULAR HEMOGLOBIN 26.9 pg (25-34); MEAN CORPUSCULAR HGB CONC 33.1 g/dl (32-36); MEAN PLATELET VOLUME 9.7 fL (7.4-10.4); MONO % 12.7 %; NEUT % 69.2 %; PLATELET COUNT 335 K/uL (130-400); WHITE BLOOD COUNT 14.05 K/uL (4.8-10.8)
[2016-09-24 12:26] LABS: ALT/SGPT 27 U/L (12-78); BLOOD UREA NITROGEN 14 mg/dl (7-18); BUN/CREATININE RATIO 20.6 (10-20); CARBON DIOXIDE 33 mmol/L (21-32); CHLORIDE 106 mmol/L (98-107); CREATININE 0.66 mg/dl (0.60-1.40); GLUCOSE 102 mg/dl (70-99); MAGNESIUM 2.4 mg/dl (1.8-2.4); POTASSIUM 4.2 mmol/L (3.5-5.1); SODIUM 143 mmol/L (136-145)
[2016-09-24] MEDS ORDERED: FSM70 PO (12:26)
[2016-09-24] MEDS ORDERED: ACET-1047 PO (12:26)
[2016-09-24 12:27] LABS: CALCIUM 9.4 mg/dl (8.5-10.1)
[2016-09-24 12:31] LABS: PROTHROMBIN TIME (PATIENT) 10.8 SECONDS (9.0-12.0)
[2016-09-24 12:36] LABS: ALB/GLOB RATIO 0.8 (0.9-2); ALKALINE PHOSPHATASE 80 U/L (45-117); AST/SGOT 17 U/L (15-37)
--- NOTE | 2016-09-24 13:01 | DIAGNOSTIC IMAGING REPORT ---
CT OF THE HEAD WITHOUT CONTRAST CLINICAL HISTORY: Fall. Left leg weakness. COMPARISON STUDY: No previous studies for comparison. TECHNIQUE: Helical axial images of the head were obtained without IV contrast. Automated exposure control was utilized for the study. FINDINGS: No acute intracranial hemorrhage, midline shift or mass effect is present. Ventricular system is unremarkable for age. The basilar cisterns are patent. There are no extra-axial collections. Basilar cisterns are patent. Note is made of a 1.6 cm hypodensity within the right cerebellar hemisphere. There is no calvarial fracture. Visualized portions of the sinuses and mastoid air cells are clear. IMPRESSION: 1. No acute intracranial findings. 2. No calvarial fracture. 3. 1.6 cm hypodensity within the right cerebellar hemisphere. This is nonspecific although could reflect an old infarct or arachnoid cyst. Electronically signed by: Brad Hinson M.D. 09/24/2016 1:00 PM Dictated Date/Time: 09/24/2016 12:57 PM
--- NOTE | 2016-09-24 13:13 | DIAGNOSTIC IMAGING REPORT ---
CT THORACIC SPINE WITHOUT CLINICAL HISTORY: Fall. Thoracic pain. Recent spine surgery. TECHNIQUE: Axial images of the thoracic spine were obtained without IV contrast. Sagittal and coronal reconstructions were viewed. COMPARISON STUDY: Thoracic spine MRI May 18, 2007 and fluoroscopic images May 19, 2007. FINDINGS: An old T11 compression fracture with moderate loss of vertebral body height is noted. Hyperdense material reflects prior kyphoplasty. There is slight loss of height of the superior endplate of T5 which is unchanged since MRI of May 18, 2007. There is no acute thoracic spine fracture. Slight concavity of the superior endplate of T7 is also unchanged. Paravertebral soft tissues are unremarkable. Central canal and neural foramen are suboptimally assessed by CT. No acute fractures are identified within visualized portions of the posterior ribs. IMPRESSION: 1. No acute thoracic spine fracture or subluxation. 2. Old T11 compression fracture status post kyphoplasty at this level. 3. No change in slight concavity of the superior endplates of T5 and T7 since MRI of May 18, 2007. Electronically signed by: Brad Hinson M.D. 09/24/2016 1:12 PM Dictated Date/Time: 09/24/2016 1:01 PM
--- NOTE | 2016-09-24 13:18 | DIAGNOSTIC IMAGING REPORT ---
CT LUMBAR SPINE WITHOUT CT DOSE: CLINICAL HISTORY: Lumbar spine pain status post trauma TECHNIQUE: Helical images were acquired in transverse plane. Reformatted sagittal and coronal images were reviewed. CONTRAST: No contrast was administered COMPARISON STUDY: 08/31/2016 FINDINGS: L1-2 level: There is no evidence of significant disc bulge or focal herniation. There is no evidence of spinal or foraminal stenosis. L2-3 level: There is no evidence of significant disc bulge or focal herniation. There is no evidence of spinal or foraminal stenosis. L3-4 level: There is a circumferential disc bulge. There is mild to moderate spinal stenosis. There is minor bilateral foraminal narrowing. L4-5 level: There is a circumferential disc bulge. There are postlaminectomy changes. L5-S1 level: There is no evidence of significant disc bulge or focal herniation. There is no evidence of spinal or foraminal stenosis. Again evident is a superior endplate L5 compression fracture. Since the prior study, the patient has undergone a posterior laminectomy and vertebroplasty. Since the prior study, the patient has developed a subtle superior endplate L2 compression fracture. IMPRESSION: 1. Since the prior August 31 study, the patient has developed a subtle superior endplate L2 compression fracture 2. Subacute superior endplate L5 compression fracture status post vertebroplasty and posterior laminectomy 3. Circumferential disc bulge at the L3-4 level with mild to moderate spinal stenosis. Electronically signed by: Ranjeet Caballero M.D. 09/24/2016 1:17 PM Dictated Date/Time: 09/24/2016 1:12 PM
--- NOTE | 2016-09-24 13:37 | DIAGNOSTIC IMAGING REPORT ---
PELVIS CT CT DOSE: 5163.49 mGy.cm HISTORY: Fall, thoracic, lumbar and left hip pain. Recent spinal surgery TECHNIQUE: Multiaxial CT images of the pelvis were performed and reformatted in the sagittal and coronal plane without the use of contrast. COMPARISON: Pelvis CT 08/18/2016. FINDINGS: Vertebroplasty at the L5 compression fracture. Mild offset within the coccyx, unchanged. Posterior decompression at L5. No acute fracture or dislocation within the pelvis or hips. The sacrum is intact. Mild osteoarthritis within the bilateral hips. Colonic diverticulosis. IMPRESSION: 1. No acute fracture or dislocation within the pelvis or hips. 2. L5 vertebroplasty. Electronically signed by: [place] M.D. 09/24/2016 1:35 PM Dictated Date/Time: 09/24/2016 1:08 PM
--- NOTE | 2016-09-24 14:40 | DIAGNOSTIC IMAGING REPORT ---
CHEST ONE VIEW PORTABLE CLINICAL HISTORY: Fall. COMPARISON STUDY: Chest radiograph October 09, 2007. FINDINGS: There is no pneumothorax. No definite pleural effusion is present. An apparent left pleural effusion is probably artifactual. Cardiac size is stable. There is no evidence of pulmonary edema. IMPRESSION: No acute cardiopulmonary findings. Electronically signed by: Brad Hinson M.D. 09/24/2016 2:39 PM Dictated Date/Time: 09/24/2016 2:38 PM
--- NOTE | 2016-09-24 14:41 | DIAGNOSTIC IMAGING REPORT ---
LEFT FEMUR 2 VIEWS ROUTINE CLINICAL HISTORY: Left femur pain status post trauma COMPARISON: None. DISCUSSION: There are postsurgical changes of a total left knee arthroplasty. No fractures or dislocations are visualized. IMPRESSION: No fractures or dislocations identified. Electronically signed by: Ranjeet Caballero M.D. 09/24/2016 2:39 PM Dictated Date/Time: 09/24/2016 2:39 PM
[2016-09-24] MEDS ORDERED: IV FLUIDS COMPLETED PRN (16:00)
[2016-09-24] MEDS ORDERED: POLYETHYLENE (MIRALAX) 17 GM PACK PO PRN (16:00)
[2016-09-24] MEDS ORDERED: MoRPHine SULFATE 2 MG/ML CARP IV PRN (16:00)
[2016-09-24] MEDS ORDERED: ONDANSETRON INJ 2 MG/ML 2 ML VIAL IV PRN (16:00)
--- NOTE | 2016-09-24 16:06 | History and Physical ---
History & Physical Date & Time of Service: Sep 24, 2016 at 15:55 Chief Complaint: FALL Primary Care Physician: Booker Warren D.O. History of Present Illness Source: patient HISTORY OF PRESENT ILLNESS: This is an 81-year-old male with past medical history significant for BPH, hyperlipidemia, hypertension, and history of lumbar spinal stenosis who was recently in the hospital 08/2016 comes with a fall while at his PCP 's office. Patient was recently discharged from hospital on 09/04/16. Was admitted for low back pain secondary to compression fracture L5 with spinal stenosis. Had ambulatory dysfunction, low back pain and some left lower extremity weakness. Underwent L4-L5/L5-S1 decompression and L5 kyphoplasty on 09/01/[address] Ball. Patient did well post operatively and was discharged to rehab. Was discharged home from rehab last a week ago. Today he was at his PCP office and tripped over the carpet and fell down. C/o Low back pain, severe post fall which brought him to the ER. He required assistance to get up and had difficulty ambulating. He c/o left lower extremity weakness (which was there even during the last admission, but had improved post surgery)- per him this worsened yesterday night. Denies any urinary, bowel incontinence. No c/o chest pain, SOB, cough, fever, chills, nausea, vomiting, abdominal pain. In ED, he still has low back pain. Received IV Morphine 4 mg, IV Zofran in ED. CT head, CT pelvis, X ray femur/CXR- shows no fractures, CT lumbar spine- L5 frature and L2 compression #. Will admit him for ambulatory dysfunction/Severe low back pain s/p fall with new compression fracture L2 and L5- site of prior surgery. Past Medical/Surgical History Medical Problems: (1) BPH (benign prostatic hyperplasia) Status: Chronic (2) HLD (hyperlipidemia) Status: Chronic (3) Hypertension Status: Chronic Surgical Problems: (1) H/O hernia repair Status: Chronic (2) H/O vertebroplasty Permanent Comment: T-, 05/20/07 Status: Chronic (3) History of total knee arthroplasty Status: Chronic (4) Hx of cholecystectomy Status: Resolved Family History FH: heart disease Hypertension Social History Smoking Status: Never Smoker Drug Use: none Marital Status: Housing status: lives alone Occupational Status: retired Immunizations History of Influenza Vaccine: N/A Influenza Vaccine Date: Feb 15, 2008 History of Tetanus Vaccine?: Yes History of Pneumococcal: Yes Pneumococcal Date: May 17, 2005 History of Hepatitis B Vaccine: Unknown Multi-Drug Resistant Organisms History of MDRO: No Allergies Coded Allergies: No Known Allergies (Verified , 09/24/16) Home Medications Scheduled Acetaminophen (Mapap), 650 MG PO TID Alendronate Sodium (Alendronate Sodium), 70 MG PO THURSDAYS ONLY Aspirin (Aspirin Ec), 81 MG PO HS Cholecalciferol (Vitamin D3), 1,000 INTER.UNIT PO DAILY Docusate Sodium (Docusate Sodium), 100 MG PO BID Finasteride (Finasteride), 5 MG PO HS Ensdbflg-Xfvmfgmxiapw-Chkwfyqh (Artificial Tears), 1 DROP OPB BID Metoprolol Tartrate (Lopressor) (Lopressor), 50 MG PO BID Multivitamin (Multivitamin), 1 TAB PO DAILY Pravastatin Sod (Pravastatin Sodium), 20 MG PO HS Scheduled PRN Amoxicillin (Amoxil), 2,000 MG PO UD PRN for Prior to Dental Work Ibuprofen Tab (Advil), 200-600 MG PO Q4H PRN for Pain Review of Systems Constitutional: No fever, No chills Eyes: No worsening of vision ENT: No hearing loss, No nasal symptoms Respiratory: No cough, No sputum, No wheezing, No shortness of breath Cardiovascular: + edema, No chest pain, No orthopnea, No palpitations Abdomen: No pain, No nausea, No vomiting, No diarrhea, No GI bleeding Musculoskeletal: + problem reported (low back pain) Neurologic: + weakness (left lower extremity) Psychiatric: No depression symptoms Hematologic / Lymphatic: No abnormal bleeding/bruising Integumentary: No rash Physical Exam Vital Signs Date Time Temp Pulse Resp B/P (MAP) Pulse Ox O2 Delivery O2 Flow Rate FiO2 09/24/16 14:42 90 18 133/65 94 Room Air 09/24/16 13:26 86 18 144/72 95 Room Air 09/24/16 12:15 96 Room Air 09/24/16 12:03 88 09/24/16 11:29 36.7 87 18 156/81 95 Room Air General Appearance: no apparent distress Head: normocephalic, atraumatic Eyes: PERRL ENT: hearing grossly normal Neck: supple, no JVD Respiratory/Chest: chest non-tender, lungs clear, normal breath sounds, no respiratory distress, no accessory muscle use Cardiovascular: regular rate, rhythm, no murmur Abdomen/GI: normal bowel sounds, non tender, soft Extremities/Musculoskelatal: no calf tenderness, non-tender, + pedal edema ( bilaterally) Neurologic/Psych: alert, oriented x 3, + pertinent finding (Power 4/5 in left lower extremity, 5/5 rest of the extremities) Diagnostics Laboratory Results Results Past 24 Hours Test 09/24/16 11:30 Range/Units White Blood Count 14.05 4.8-10.8 K/uL Red Blood Count 5.40 4.7-6.1 M/uL Hemoglobin 14.5 14.0-18.0 g/dL Hematocrit 43.8 42-52 % Mean Corpuscular Volume 81.1 80-100 fL Mean Corpuscular Hemoglobin 26.9 25-34 pg Mean Corpuscular Hemoglobin Concent 33.1 32-36 g/dl Platelet Count 335 130-400 K/uL Mean Platelet Volume 9.7 7.4-10.4 fL Neutrophils (%) (Auto) 69.2 % Lymphocytes (%) (Auto) 14.1 % Monocytes (%) (Auto) 12.7 % Eosinophils (%) (Auto) 2.4 % Basophils (%) (Auto) 0.5 % Neutrophils # (Auto) 9.72 1.4-6.5 K/uL Lymphocytes # (Auto) 1.98 1.2-3.4 K/uL Monocytes # (Auto) 1.79 0.11-0.59 K/uL Eosinophils # (Auto) 0.34 0-0.5 K/uL Basophils # (Auto) 0.07 0-0.2 K/uL RDW Standard Deviation 42.0 36.4-46.3 fL RDW Coefficient of Variation 14.1 11.5-14.5 % Immature Granulocyte % (Auto) 1.1 % Immature Granulocyte # (Auto) 0.15 0.00-0.02 K/uL Prothrombin Time 10.8 9.0-12.0 SECONDS Prothromb Time International Ratio 1.0 0.9-1.1 Activated Partial Thromboplast Time 25.6 21.0-31.0 SECONDS Partial Thromboplastin Ratio 1.0 Sodium Level 143 136-145 mmol/L Potassium Level 4.2 3.5-5.1 mmol/L Chloride Level 106 98-107 mmol/L Carbon Dioxide Level 33 21-32 mmol/L Anion Gap 4.0 3-11 mmol/L Blood Urea Nitrogen 14 7-18 mg/dl Creatinine 0.66 0.60-1.40 mg/dl Est Creatinine Clear Calc Drug Dose 108.7 ml/min Estimated GFR () 104.4 Estimated GFR (Non- 90.0 BUN/Creatinine Ratio 20.6 10-20 Random Glucose 102 70-99 mg/dl Calcium Level 9.4 8.5-10.1 mg/dl Magnesium Level 2.4 1.8-2.4 mg/dl Total Bilirubin 0.5 0.2-1 mg/dl Aspartate Amino Transf (AST/SGOT) 17 15-37 U/L Alanine Aminotransferase (ALT/SGPT) 27 12-78 U/L Alkaline Phosphatase 80 45-117 U/L Troponin I < 0.015 0-0.045 ng/ml Pro-B-Type Natriuretic Peptide 302 0-1800 pg/ml Total Protein 7.0 6.4-8.2 gm/dl Albumin 3.0 3.4-5.0 gm/dl Globulin 4.0 2.5-4.0 gm/dl Albumin/Globulin Ratio 0.8 0.9-2 Thyroid Stimulating Hormone (TSH) 1.630 0.300-4.500 uIu/ml Diagnostic Radiology CT THORACIC SPINE IMPRESSION: 1. No acute thoracic spine fracture or subluxation. 2. Old T11 compression fracture status post kyphoplasty at this level. 3. No change in slight concavity of the superior endplates of T5 and T7 since MRI of May 18, 2007. CT PELVIS IMPRESSION: 1. No acute fracture or dislocation within the pelvis or hips. 2. L5 vertebroplasty. LUMBAR CT SPINE IMPRESSION: 1. Since the prior August 31 study, the patient has developed a subtle superior endplate L2 compression fracture 2. Subacute superior endplate L5 compression fracture status post vertebroplasty and posterior laminectomy 3. Circumferential disc bulge at the L3-4 level with mild to moderate spinal stenosis. CT HEAD IMPRESSION: 1. No acute intracranial findings. 2. No calvarial fracture. 3. 1.6 cm hypodensity within the right cerebellar hemisphere. This is nonspecific although could reflect an old infarct or arachnoid cyst. CXR/Femur x ray No fractures Impression Assessment and Plan ASSESSMENT AND PLAN: An 81-year-old male who recently was discharged from [facility] on 09/04/16 after a fall, compression fracture L5 with spinal stenosis, underwent L4-5, L5-S1 decompression and L5 kyphoplasty , was discharged. Went to PCP office, had a fall and came back to ER with c/o low back pain and ambulatory dysfunction. AMBULATORY DYSFUNCTION: Recent admission (discharged on 09/04/16) for fall --> L5 compression # --> underwent L4-5, L5-S1 decompression and L5 kyphoplasty on 09/01/[address] Ball. Comes back with an accidental fall at PCP office- lower back pain/ ambulatory dysfunction. Does have left lower extremity weakness (which was present during last admission prior to surgery as well, but had improved post surgery). Says it has worsened since yesterday night. Was doing well before that -CT Lumbar spine- subtle superior endplate L2 compression fracture 2. Subacute superior endplate L5 compression fracture status post vertebroplasty and posterior laminectomy 3. Circumferential disc bulge at the L3-4 level with mild to moderate spinal stenosis. -Neurologically- Left lower ext 4/5, but rest 5/5, No urinary /Bowel incontinence -CXR/Femur x ray- no fracture ; CT head/Pelvis CT- no acute abnormalities -Pain mx: Was on tyelnol 325 mg PO TID at home. Received IV Morphin 4 mg x 1 dose in ED. Will start on PRN Percocet and IV Morphine PRN -PT/OT ordered -Ortho consulted. Made aware of the consult. HTN- Stable -Continue with metoprolol HLP- Continue with statin BPH -Continue with proscar PRESSURE ULCER SACRUM -Wound care DVT PROPHYLAXIS Heparin SQ FULL CODE , but no prolonged artificial support DISPOSITION PT/OT May need rehab. Lives with his daughter post rehab and recent discharge from hospital SS involved Level of Care Med/Surg Resuscitation Status FULL RESUSCITATION VTE Prophylaxis VTE Risk Assessment Done? Y/N: Yes Risk Level: Moderate Given or contraindicated: T.E.D. Stockings, SCD's
[2016-09-24 16:20] LABS: URINE APPEARANCE CLEAR (CLEAR); URINE BILIRUBIN NEG (NEG); URINE COLOR DK YELLOW; URINE NITRITE NEG (NEG); URINE SPECIFIC GRAVITY 1.022 (1.000-1.030); UROBILINOGEN NEG (NEG)
[2016-09-24 16:22] LABS: MANUAL MICROSCOPIC REQUIRED? NO; REVIEW REQ? NO; ZZUR CULT IF INDIC CLEAN CATCH YES
[2016-09-24 16:44] VITALS: Ht 177.8 cm; Wt 113.1 kg
[2016-09-24 17:45] VITALS: O2SAT 95
[2016-09-24 18:27] VITALS: BP 154/79; PULSE 95; TEMP 36.4; O2SAT 94
[2016-09-24] MEDS: PRAVASTATIN SOD 20 MG TAB PO SCH (20:36)
[2016-09-24] MEDS: FINASTERIDE 5 MG TAB PO SCH (20:36)
[2016-09-24] MEDS: ASPIRIN 81 MG ECTAB PO SCH (20:36)
[2016-09-24] MEDS: DOCUSATE SODIUM 100 MG CAP PO SCH (20:36)
[2016-09-24 20:40] VITALS: BP 109/67; PULSE 105; O2SAT 95
[2016-09-24] MEDS: ARTIFICIAL TEARS OP SOLN OPB SCH ×2 (20:43)
[2016-09-24] MEDS: HEPARIN SOD 5000 UNIT/0.5 ML CARP SQ SCH (20:43)
[2016-09-24] MEDS: METOPROLOL TARTRATE 50 MG TAB PO SCH (20:44)
[2016-09-24 23:38] VITALS: BP 112/63; PULSE 87; TEMP 36.9; O2SAT 93
[2016-09-25] MEDS: OXYCODONE/ACETAMINOPHEN 5-325 TAB PO PRN (01:39)
[2016-09-25 05:54] LABS: HEMATOCRIT 40.2 % (42-52); MEAN CELL VOLUME 81.5 fL (80-100); MEAN CORPUSCULAR HEMOGLOBIN 26.2 pg (25-34); MEAN CORPUSCULAR HGB CONC 32.1 g/dl (32-36); MEAN PLATELET VOLUME 9.4 fL (7.4-10.4); PLATELET COUNT 273 K/uL (130-400); RED BLOOD COUNT 4.93 M/uL (4.7-6.1); WHITE BLOOD COUNT 10.57 K/uL (4.8-10.8)
[2016-09-25 06:28] LABS: BUN/CREATININE RATIO 21.6 (10-20); CALCIUM 8.7 mg/dl (8.5-10.1); CREATININE 0.57 mg/dl (0.60-1.40)
[2016-09-25 06:53] VITALS: BP 124/71; PULSE 87; TEMP 36.6; O2SAT 94
[2016-09-25] MEDS: ARTIFICIAL TEARS OP SOLN OPB SCH ×4 (09:00→20:14)
[2016-09-25] MEDS: DOCUSATE SODIUM 100 MG CAP PO SCH ×2 (09:01→20:14)
[2016-09-25] MEDS: MULTIVITAMIN TAB PO SCH (09:01)
[2016-09-25] MEDS: METOPROLOL TARTRATE 50 MG TAB PO SCH ×2 (09:01→20:15)
[2016-09-25] MEDS: CHOLECALCIFEROL 1000 INTER.UNIT TAB PO SCH (09:02)
[2016-09-25] MEDS: PANTOprazole SOD 40 MG TAB PO SCH (09:02)
[2016-09-25] MEDS: HEPARIN SOD 5000 UNIT/0.5 ML CARP SQ SCH ×2 (09:05→20:17)
[2016-09-25] MEDS: ACETAMINOPHEN 325 MG TAB PO PRN ×2 (11:16→20:14)
[2016-09-25] MEDS ORDERED: COUGH DROP (SUGAR FREE) LOZ 24 LOZ/1 BOX ONE (15:19)
[2016-09-25 15:28] VITALS: BP 105/66; PULSE 73; TEMP 37; O2SAT 94
[2016-09-25] MEDS ORDERED: NURSING DECISION MEDICATION ORDER SCH (15:30)
[2016-09-25] MEDS ORDERED: COUGH DROP (SUGAR FREE) LOZ 24 LOZ/1 BOX PO PRN (16:00)
--- NOTE | 2016-09-25 16:31 | Progress Note ---
Internal Med Progress Note Date of Service: Sep 25, 2016. Provider Documentation: SUBJECTIVE: Patient is doing better. Pain is more in left hip site than lower back now. Taking only tylenol PRN No radiating pain, no urinary/bowel incontinence OBJECTIVE: Vital Signs-as noted below Exam: General- AAOX3, no distress Neck-Supple, No JVD Lungs-AEBE, no wheezing, crackles Heart-S1, S2 normal, no murmurs Extremities-No edema Neuro-Left lower extremity weakness has resolved. Power 5/5 all extremities Lab data as noted below. ASSESSMENT & PLAN: Assessment and Plan ASSESSMENT AND PLAN: An 81-year-old male who recently was discharged from [facility] on 09/04/16 after a fall, compression fracture L5 with spinal stenosis, underwent L4-5, L5-S1 decompression and L5 kyphoplasty , was discharged. Went to PCP office, had a fall and came back to ER with c/o low back pain and ambulatory dysfunction. AMBULATORY DYSFUNCTION/LOW BACK PAIN : Improved Recent admission (discharged on 09/04/16) for fall --> L5 compression # --> underwent L4-5, L5-S1 decompression and L5 kyphoplasty on 09/01/[address] Ball. Comes back with an accidental fall at PCP office- lower back pain/ ambulatory dysfunction. Does have left lower extremity weakness (which was present during last admission prior to surgery as well, but had improved post surgery). Says it has worsened since night before admission. Was doing well before that -CT Lumbar spine- subtle superior endplate L2 compression fracture 2. Subacute superior endplate L5 compression fracture status post vertebroplasty and posterior laminectomy 3. Circumferential disc bulge at the L3-4 level with mild to moderate spinal stenosis. -Neurologically- Left lower ext 4/5, but rest 5/5, No urinary /Bowel incontinence -CXR/Femur x ray- no fracture ; CT head/Pelvis CT- no acute abnormalities -Pain mx: Was on tyelnol 325 mg PO TID at home. Received IV Morphin 4 mg x 1 dose in ED. Started on PRN Percocet and IV Morphine PRN, but using only tylenol -PT/OT ordered -Ortho consulted. Made aware of the consult. May consider kyphoplasty HTN- Stable -Continue with metoprolol HLP- Continue with statin BPH -Continue with proscar PRESSURE ULCER SACRUM -Wound care -Cultures grew gram negative staph- most likely contamination. -No signs of infection, will not treat it with antibiotics but observe it. DVT PROPHYLAXIS Heparin SQ FULL CODE , but no prolonged artificial support DISPOSITION PT/OT May need rehab. Lives with his daughter post rehab and recent discharge from hospital SS involved Discussed with daughter by bedside and updated. Vital Signs: Date Time Temp Pulse Resp B/P (MAP) Pulse Ox O2 Delivery O2 Flow Rate FiO2 09/25/16 15:33 Room Air 09/25/16 15:28 37.0 73 16 105/66 (79) 94 Room Air 09/25/16 07:54 Room Air 09/25/16 06:53 36.6 87 16 124/71 (88) 94 Room Air 09/25/16 03:20 Room Air 09/24/16 23:59 Room Air 09/24/16 23:38 36.9 87 16 112/63 (79) 93 Room Air 09/24/16 20:40 105 109/67 (81) 95 09/24/16 18:27 36.4 95 16 154/79 (104) 94 Room Air 09/24/16 17:45 88 18 121/55 95 Room Air Lab Results: Results Past 24 Hours Test 09/25/16 05:22 Range/Units White Blood Count 10.57 4.8-10.8 K/uL Red Blood Count 4.93 4.7-6.1 M/uL Hemoglobin 12.9 14.0-18.0 g/dL Hematocrit 40.2 42-52 % Mean Corpuscular Volume 81.5 80-100 fL Mean Corpuscular Hemoglobin 26.2 25-34 pg Mean Corpuscular Hemoglobin Concent 32.1 32-36 g/dl RDW Standard Deviation 42.2 36.4-46.3 fL RDW Coefficient of Variation 14.2 11.5-14.5 % Platelet Count 273 130-400 K/uL Mean Platelet Volume 9.4 7.4-10.4 fL Sodium Level 143 136-145 mmol/L Potassium Level 4.0 3.5-5.1 mmol/L Chloride Level 105 98-107 mmol/L Carbon Dioxide Level 35 21-32 mmol/L Anion Gap 3.0 3-11 mmol/L Blood Urea Nitrogen 12 7-18 mg/dl Creatinine 0.57 0.60-1.40 mg/dl Est Creatinine Clear Calc Drug Dose 125.8 ml/min Estimated GFR () 110.8 Estimated GFR (Non- 95.6 BUN/Creatinine Ratio 21.6 10-20 Random Glucose 86 70-99 mg/dl Calcium Level 8.7 8.5-10.1 mg/dl
[2016-09-25 20:13] VITALS: BP 114/70; PULSE 82
[2016-09-25] MEDS: PRAVASTATIN SOD 20 MG TAB PO SCH (20:14)
[2016-09-25] MEDS: ASPIRIN 81 MG ECTAB PO SCH (20:15)
[2016-09-25] MEDS: FINASTERIDE 5 MG TAB PO SCH (20:16)
[2016-09-25 23:07] VITALS: BP 127/72; PULSE 87; TEMP 36.4; O2SAT 94
[2016-09-26] MEDS: ACETAMINOPHEN 325 MG TAB PO PRN ×2 (02:31→19:10)
[2016-09-26 07:07] VITALS: BP 156/79; PULSE 85; TEMP 36.8; O2SAT 95
[2016-09-26] MEDS: MULTIVITAMIN TAB PO SCH (09:28)
[2016-09-26] MEDS: OXYCODONE/ACETAMINOPHEN 5-325 TAB PO PRN (09:28)
[2016-09-26] MEDS: PANTOprazole SOD 40 MG TAB PO SCH (09:28)
[2016-09-26] MEDS: ARTIFICIAL TEARS OP SOLN OPB SCH ×4 (09:29→20:40)
[2016-09-26] MEDS: DOCUSATE SODIUM 100 MG CAP PO SCH ×2 (09:29→20:41)
[2016-09-26] MEDS: CHOLECALCIFEROL 1000 INTER.UNIT TAB PO SCH (09:29)
[2016-09-26] MEDS: HEPARIN SOD 5000 UNIT/0.5 ML CARP SQ SCH ×2 (09:31→20:44)
--- NOTE | 2016-09-26 09:39 | PROGRESS NOTE ---
DATE: 09/26/2016 SUBJECTIVE: I evaluated Mr. Reed yesterday in regards to an acute L2 compression fracture. Options were given including bracing versus kyphoplasty of L2. Upon evaluation this morning he reports he was up and ambulatory yesterday. He reports his pain is controlled. Has some hip pain which he has had for a few weeks. No other complaints. PHYSICAL EXAMINATION: GENERAL: He is in no obvious distress. He is lying in bed comfortably. EXTREMITIES: Strength is improving left leg. Strength is intact right leg as well. ASSESSMENT: Status post lumbar decompression with L5 kyphoplasty from September 01. Acute L2 compression fracture status post fall. PLAN: At this point in time, I have also spoken with his daughter, Yoli on the phone this morning. Options are reviewed. The patient at this point in time wants to proceed with nonoperative treatment. We will therefore order bracing as well as PT, OT consult. I have discussed the possibility of possibly needing rehab upon discharge. The patient and his daughter are comfortable with this plan.
[2016-09-26] MEDS: METOPROLOL TARTRATE 50 MG TAB PO SCH ×2 (10:56→20:43)
--- NOTE | 2016-09-26 13:49 | Progress Note ---
Internal Med Progress Note Date of Service: Sep 26, 2016. Provider Documentation: SUBJECTIVE : Patient is doing better. Pain is more in left hip site than lower back . Taking only tylenol PRN No radiating pain, no urinary/bowel incontinence OBJECTIVE: Vital Signs-as noted below Exam: General- AAOX3, no distress Neck-Supple, No JVD Lungs-AEBE, no wheezing, crackles Heart-S1, S2 normal, no murmurs Extremities-No edema Neuro-Left lower extremity weakness has resolved. Power 5/5 all extremities Lab data as noted below. ASSESSMENT & PLAN: Assessment and Plan ASSESSMENT AND PLAN: An 81-year-old male who recently was discharged from [facility] on 09/04/16 after a fall, compression fracture L5 with spinal stenosis, underwent L4-5, L5-S1 decompression and L5 kyphoplasty , was discharged. Went to PCP office, had a fall and came back to ER with c/o low back pain and ambulatory dysfunction. AMBULATORY DYSFUNCTION/LOW BACK PAIN : Improved Recent admission (discharged on 09/04/16) for fall --> L5 compression # --> underwent L4-5, L5-S1 decompression and L5 kyphoplasty on 09/01/[address] Ball. Comes back with an accidental fall at PCP office- lower back pain/ ambulatory dysfunction. Does have left lower extremity weakness (which was present during last admission prior to surgery as well, but had improved post surgery). Says it has worsened since night before admission. Was doing well before that -CT Lumbar spine- subtle superior endplate L2 compression fracture 2. Subacute superior endplate L5 compression fracture status post vertebroplasty and posterior laminectomy 3. Circumferential disc bulge at the L3-4 level with mild to moderate spinal stenosis. -Neurologically- Left lower ext 4/5- improved, but rest 5/5, No urinary /Bowel incontinence -CXR/Femur x ray- no fracture ; CT head/Pelvis CT- no acute abnormalities -Pain mx: Was on tyelnol 325 mg PO TID at home. Received IV Morphin 4 mg x 1 dose in ED. Started on PRN Percocet and IV Morphine PRN, but using only tylenol -PT/OT ordered -Ortho consulted. Gave option of kyphoplasty vs Brace/PT/OT, patient and daughter prefers non conservative approach HTN- Stable -Continue with metoprolol HLP- Continue with statin BPH -Continue with proscar PRESSURE ULCER SACRUM -Wound care -Cultures grew gram negative staph- most likely contamination. -No signs of infection, will not treat it with antibiotics but observe it. DVT PROPHYLAXIS Heparin SQ FULL CODE , but no prolonged artificial support DISPOSITION PT/OT- recommends rehab. Waiting for brace too. May need rehab. Lives with his daughter post rehab and recent discharge from hospital SS involved Vital Signs: Date Time Temp Pulse Resp B/P (MAP) Pulse Ox O2 Delivery O2 Flow Rate FiO2 09/26/16 07:50 Room Air 09/26/16 07:07 36.8 85 17 156/79 (104) 95 Room Air 09/25/16 23:07 36.4 87 18 127/72 (90) 94 Room Air 09/25/16 20:27 Room Air 09/25/16 20:13 82 114/70 (85) 09/25/16 15:33 Room Air 09/25/16 15:28 37.0 73 16 105/66 (79) 94 Room Air
[2016-09-26 14:56] VITALS: BP 117/68; PULSE 81; TEMP 37; O2SAT 95
[2016-09-26] MEDS: FINASTERIDE 5 MG TAB PO SCH (20:41)
[2016-09-26] MEDS: PRAVASTATIN SOD 20 MG TAB PO SCH (20:41)
[2016-09-26] MEDS: ASPIRIN 81 MG ECTAB PO SCH (20:41)
[2016-09-26 20:47] VITALS: BP 118/72; PULSE 79
[2016-09-26 23:14] VITALS: BP 137/76; PULSE 89; TEMP 36.2; O2SAT 96
[2016-09-27 06:40] VITALS: BP_SYST 133; BP_SYST 153; BP_DIAS 81; PULSE 72; TEMP 36.5; O2SAT 95
[2016-09-27] MEDS: ACETAMINOPHEN 325 MG TAB PO PRN ×2 (07:04→13:52)
--- NOTE | 2016-09-27 07:44 | CONSULTATION REPORT ---
DATE OF CONSULTATION: 09/25/2016 DATE OF CONSULTATION: 09/25/2016. HISTORY OF PRESENT ILLNESS: Mr. Reed is known to our practice. He on 09/01/2016 underwent L4-L5 and L5-S1 foraminotomies as well as L5 kyphoplasty by Dr. Ball. He did well. Yesterday, he was in his PCP's office and he tripped over the carpet and fell down. He was ambulating with a walker. He was unable to get up on his own. Ambulance was therefore called to the office and taken to [facility] Emergency Room for further evaluation. He states this morning his pain is well controlled. Still has left leg weakness which he had several weeks ago during his hospital stay. No radicular leg pain. No bowel or bladder incontinence. He is urinating without issue. He denies hitting his head. Denies loss of consciousness. PAST MEDICAL HISTORY: Significant for BPH, hyperlipidemia, hypertension. PAST SURGICAL HISTORY: Significant for hernia repair, kyphoplasty in 2007 as well as August of 2016. Cholecystectomy and knee replacements. ALLERGIES: None listed. MEDICATIONS: At home include Tylenol, Fosamax, aspirin, vitamin D3, docusate sodium, finasteride, Artificial Tears, metoprolol, multivitamin, pravastatin. REVIEW OF SYSTEMS: Significant for back pain and left leg weakness. PHYSICAL EXAMINATION: VITAL SIGNS: Limited to musculoskeletal system. GENERAL: She is lying in room 308. He is in no obvious distress. He is alert and oriented x3. MUSCULOSKELETAL: His lower extremities. He does have some breakaway weakness over the left quadriceps and dorsiflexion. Strength is intact right leg. Negative log rolling bilaterally. IMAGING: I have a CT scan of the lumbar spine performed 09/24/2016 from [facility]. Demonstrates prior kyphoplasty at L5. An acute superior endplate compression fracture of L2. No significant retropulsion or stenosis at the L2-3 level. Modest central stenosis at L3-4. Thoracic CT was also performed on 09/24/2016. No acute fractures noted. There is evidence of prior kyphoplasty of T11. Old superior endplate compression fractures noted at T5 and T7. ASSESSMENT: Acute L2 compression fracture status post fall. PLAN: At this point in time, we have discussed options including conservative treatment in the form of bracing, PT, OT and pain control versus kyphoplasty of L2. Again, he understands if his pain is controlled we may lean towards the conservative route. If so as he presented several weeks ago pain is unmanageable and he wants to pursue surgical fixation we can possibly perform this on Tuesday. He is going to consider his options. I will touch base with them again tomorrow.
[2016-09-27] MEDS: CHOLECALCIFEROL 1000 INTER.UNIT TAB PO SCH (07:51)
[2016-09-27] MEDS: DOCUSATE SODIUM 100 MG CAP PO SCH (07:51)
[2016-09-27] MEDS: METOPROLOL TARTRATE 50 MG TAB PO SCH (07:51)
[2016-09-27] MEDS: ARTIFICIAL TEARS OP SOLN OPB SCH ×2 (07:51)
[2016-09-27] MEDS: PANTOprazole SOD 40 MG TAB PO SCH (07:51)
[2016-09-27] MEDS: MULTIVITAMIN TAB PO SCH (07:51)
[2016-09-27] MEDS: HEPARIN SOD 5000 UNIT/0.5 ML CARP SQ SCH (07:56)
--- NOTE | 2016-09-27 12:39 | DISCHARGE SUMMARY ---
PRINCIPAL DIAGNOSIS: Spinal stenosis. HOSPITAL COURSE FOLLOWS: On 09/24/2016 patient underwent lumbar decompression and fusion, tolerated this well and taken to the orthopedic floor postoperatively. Postop day #1 he was up and ambulatory, progressed to postop day 2. Postop day #3 pain was well controlled. MADY drain decreased appropriately, subsequently discharged home. Discharge orders and instructions found on the chart for further review.
--- NOTE | 2016-09-27 13:03 | Progress Note ---
Internal Med Progress Note Date of Service: Sep 27, 2016. Provider Documentation: SUBJECTIVE : Patient is doing better. Pain is more in left hip site than lower back . Taking only tylenol PRN No radiating pain, no urinary/bowel incontinence OBJECTIVE: Vital Signs-as noted below Exam: General- AAOX3, no distress Neck-Supple, No JVD Lungs-AEBE, no wheezing, crackles Heart-S1, S2 normal, no murmurs Extremities-No edema Neuro-Left lower extremity weakness has resolved. Power 5/5 all extremities Lab data as noted below. ASSESSMENT & PLAN: Assessment and Plan ASSESSMENT AND PLAN: An 81-year-old male who recently was discharged from [facility] on 09/04/16 after a fall, compression fracture L5 with spinal stenosis, underwent L4-5, L5-S1 decompression and L5 kyphoplasty , was discharged. Went to PCP office, had a fall and came back to ER with c/o low back pain and ambulatory dysfunction. AMBULATORY DYSFUNCTION/LOW BACK PAIN : Improved Recent admission (discharged on 09/04/16) for fall --> L5 compression # --> underwent L4-5, L5-S1 decompression and L5 kyphoplasty on 09/01/[address] Ball. Comes back with an accidental fall at PCP office- lower back pain/ ambulatory dysfunction. Does have left lower extremity weakness (which was present during last admission prior to surgery as well, but had improved post surgery). Says it has worsened since night before admission. Was doing well before that -CT Lumbar spine- subtle superior endplate L2 compression fracture 2. Subacute superior endplate L5 compression fracture status post vertebroplasty and posterior laminectomy 3. Circumferential disc bulge at the L3-4 level with mild to moderate spinal stenosis. -Neurologically- Left lower ext 4/5- improved, but rest 5/5, No urinary /Bowel incontinence -CXR/Femur x ray- no fracture ; CT head/Pelvis CT- no acute abnormalities -Pain mx: Was on tyelnol 325 mg PO TID at home. Received IV Morphin 4 mg x 1 dose in ED. Started on PRN Percocet and IV Morphine PRN, but using only tylenol -PT/OT ordered -Ortho consulted. Gave option of kyphoplasty vs Brace/PT/OT, patient and daughter prefers non conservative approach HTN- Stable -Continue with metoprolol HLP- Continue with statin BPH -Continue with proscar PRESSURE ULCER SACRUM -Wound care -Cultures grew gram negative staph- most likely contamination. -No signs of infection, will not treat it with antibiotics but observe it. DVT PROPHYLAXIS Heparin SQ FULL CODE , but no prolonged artificial support DISPOSITION PT/OT- recommends rehab. Waiting for brace too. Okay to discharge once have brace and bed available at rehab Vital Signs: Date Time Temp Pulse Resp B/P (MAP) Pulse Ox O2 Delivery O2 Flow Rate FiO2 09/27/16 07:15 Room Air 09/27/16 06:40 36.5 72 16 133/81 (98) 95 Room Air 09/26/16 23:20 Room Air 09/26/16 23:14 36.2 89 16 137/76 (96) 96 Room Air 09/26/16 20:47 79 118/72 (87) 09/26/16 15:15 Room Air 09/26/16 14:56 37.0 81 16 117/68 (84) 95 Room Air
[2016-09-27 15:09] VITALS: BP 123/74; PULSE 85; TEMP 37; O2SAT 95
[2016-09-27] MEDS ORDERED: ACET-1047 PO (15:52)
--- NOTE | 2016-09-27 15:53 | Discharge Instructions ---
Discharge Instructions Date of Service Sep 27, 2016. Admission Reason for Admission: FALL Discharge Discharge Diagnosis / Problem: 1. L2 compression fracture post fall Discharge Goals Goal(s): Decrease discomfort, Improve function, Increase independence Activity Recommendations Activity Limitations: per Instructions/Follow-up section (as tolerated with assistance (need to wear brace while ambulating)) . Instructions / Follow-Up Instructions / Follow-Up MEDICATION CHANGES: None FOLLOW UP 1. Follow up with PCP in 1 week Current Hospital Diet Patient's current hospital diet: Regular Diet Discharge Diet Recommended Diet: Regular Diet Pending Studies Studies pending at discharge: no Medical Emergencies . Who to Call and When: Medical Emergencies: If at any time you feel your situation is an emergency, please call 911 immediately. . Non-Emergent Contact Non-Emergency issues call your: Primary Care Provider . . "Provider Documentation" section prepared by Deepika Baca. . VTE Core Measure Inpt VTE Proph given/why not?: Kim Collazo, SCD's
--- NOTE | 2016-09-27 15:58 | Discharge Summary ---
Discharge Summary Date of Service Sep 27, 2016. Discharge Summary Admission Date: Sep 24, 2016 at 16:48 Discharge Date: Sep 27, 2016 Discharge Disposition: Rehab ([facility]) Principal Diagnosis: 1. L2/L5 compression fracture s/p mechanical fall 2. Recent lumbar decompression L4-5; L5-S1 3. Mechanical fall Secondary Diagnoses/Problems: 1. HTN 2. Pressure ulcer- sacram 3. BPH 4. Hyperlipidemia Procedures: CXR Femur x ray Pelvis x ray Lumbar CT Thoracic CT Head CT PT/OT Consultations: Orthopedics, Dr Ball Pending Studies/Follow-Up: Instructions / Follow-Up Instructions / Follow-Up MEDICATION CHANGES: None FOLLOW UP 1. Follow up with PCP in 1 week Medication Reconciliation Changed Medications: Acetaminophen (Mapap) 325 Mg Tab 650 MG PO TID PRN for Pain, #30 TAB (Medication details modified) Continued Medications: Alendronate Sodium (Alendronate Sodium) 70 Mg Tab 70 MG PO THURSDAYS ONLY, #4 Amoxicillin (Amoxil) 500 Mg Cap 2000 MG PO UD PRN for Prior to Dental Work, CAP Aspirin (Aspirin Ec) 81 Mg Tab 81 MG PO HS Cholecalciferol (Vitamin D3) 1,000 Unit Tab 1000 INTER.UNIT PO DAILY, TAB Docusate Sodium (Docusate Sodium) 100 Mg Cap 100 MG PO BID for 10 Days, #20 CAP Finasteride (Finasteride) 5 Mg Tab 5 MG PO HS Aukevbrt-Rstpszwscuel-Txjgubuv (Artificial Tears) 1 [place] 1 DROP OPB BID Ibuprofen Tab (Advil) 200 Mg Tab 200-600 MG PO Q4H PRN for Pain, TAB Metoprolol Tartrate (Lopressor) (Lopressor) 50 Mg Tab 50 MG PO BID, TAB Multivitamin (Multivitamin) Tab 1 TAB PO DAILY Pravastatin Sod (Pravastatin Sodium) 20 Mg Tab 20 MG PO HS Admission Information HPI (per Admitting provider): HISTORY OF PRESENT ILLNESS: This is an 81-year-old male with past medical history significant for BPH, hyperlipidemia, hypertension, and history of lumbar spinal stenosis who was recently in the hospital 08/2016 comes with a fall while at his PCP 's office. Patient was recently discharged from hospital on 09/04/16. Was admitted for low back pain secondary to compression fracture L5 with spinal stenosis. Had ambulatory dysfunction, low back pain and some left lower extremity weakness. Underwent L4-L5/L5-S1 decompression and L5 kyphoplasty on 09/01/[address] Ball. Patient did well post operatively and was discharged to rehab. Was discharged home from rehab last a week ago. Today he was at his PCP office and tripped over the carpet and fell down. C/o Low back pain, severe post fall which brought him to the ER. He required assistance to get up and had difficulty ambulating. He c/o left lower extremity weakness (which was there even during the last admission, but had improved post surgery)- per him this worsened yesterday night. Denies any urinary, bowel incontinence. No c/o chest pain, SOB, cough, fever, chills, nausea, vomiting, abdominal pain. In ED, he still has low back pain. Received IV Morphine 4 mg, IV Zofran in ED. CT head, CT pelvis, X ray femur/CXR- shows no fractures, CT lumbar spine- L5 frature and L2 compression #. Will admit him for ambulatory dysfunction/Severe low back pain s/p fall with new compression fracture L2 and L5- site of prior surgery. Physical Exam (per Admitting): General Appearance: no apparent distress Head: normocephalic, atraumatic Eyes: PERRL ENT: hearing grossly normal Neck: supple, no JVD Respiratory/Chest: chest non-tender, lungs clear, normal breath sounds, no respiratory distress, no accessory muscle use Cardiovascular: regular rate, rhythm, no murmur Abdomen/GI: normal bowel sounds, non tender, soft Extremities/Musculoskelatal: no calf tenderness, non-tender, + pedal edema ( bilaterally) Neurologic/Psych: alert, oriented x 3, + pertinent finding (Power 4/5 in left lower extremity, 5/5 rest of the extremities) Hospital Course Assessment and Plan ASSESSMENT AND PLAN: An 81-year-old male who recently was discharged from [facility] on 09/04/16 after a fall, compression fracture L5 with spinal stenosis, underwent L4-5, L5-S1 decompression and L5 kyphoplasty , was discharged. Went to PCP office, had a fall and came back to ER with c/o low back pain and ambulatory dysfunction. AMBULATORY DYSFUNCTION/LOW BACK PAIN : Improved Recent admission (discharged on 09/04/16) for fall --> L5 compression # --> underwent L4-5, L5-S1 decompression and L5 kyphoplasty on 09/01/[address] Ball. Comes back with an accidental fall at PCP office- lower back pain/ ambulatory dysfunction. Does have left lower extremity weakness (which was present during last admission prior to surgery as well, but had improved post surgery). -CT Lumbar spine - subtle superior endplate L2 compression fracture 2. Subacute superior endplate L5 compression fracture status post vertebroplasty and posterior laminectomy. 3. Circumferential disc bulge at the L3-4 level with mild to moderate spinal stenosis. -Neurologically- Left lower ext 4/5- improved, but rest 5/5, No urinary /Bowel incontinence -CXR/Femur x ray- no fracture ; CT head/Pelvis CT- no acute abnormalities -Pain mx: Was on tyelnol 325 mg PO TID at home. Received IV Morphin 4 mg x 1 dose in ED. Started on PRN Percocet and IV Morphine PRN, but using only tylenol -PT/OT on board. -Ortho consulted. Gave option of kyphoplasty vs Brace/PT/OT, patient and daughter prefers non conservative approach. Brace received and okay to discharge to rehab today HTN- Stable -Continue with metoprolol HLP- Continue with statin BPH -Continue with proscar PRESSURE ULCER SACRUM -Wound care -Cultures grew gram negative staph- most likely contamination. -No signs of infection, will not treat it with antibiotics but observe it. DVT PROPHYLAXIS Heparin SQ FULL CODE , but no prolonged artificial support DISPOSITION PT/OT- recommends rehab. Received brace and has a bed available at [facility] Okay to discharge to [facility] today Total time spent on discharge = 35 minutes This includes examination of the patient, discharge planning, medication reconciliation, and communication with other providers. Discharge Instructions Discharge Goals Goal(s): Decrease discomfort, Improve function, Increase independence Activity Recommendations Activity Limitations: per Instructions/Follow-up section (as tolerated with assistance (need to wear brace while ambulating)) . Instructions / Follow-Up Instructions / Follow-Up MEDICATION CHANGES: None FOLLOW UP 1. Follow up with PCP in 1 week Current Hospital Diet Patient's current hospital diet: Regular Diet Discharge Diet Recommended Diet: Regular Diet Pending Studies Studies pending at discharge: no Medical Emergencies . Who to Call and When: Medical Emergencies: If at any time you feel your situation is an emergency, please call 911 immediately. . Non-Emergent Contact Non-Emergency issues call your: Primary Care Provider . . "Provider Documentation" section prepared by Deepika Baca. . VTE Core Measure Inpt VTE Proph given/why not?: Kim Collazo, SCD's
[2016-09-27 16:20] VITALS: BP 123/74; PULSE 85; TEMP 37; O2SAT 95
== END 2016-09-27 16:45 | DRG 552 ==
LOC: EDBD 11:23 → C.EDB 11:24 → C.3E 16:48 → ENRESERV 17:17
PROVIDERS: ADMIT Internal Medicine; ATTEND Internal Medicine
DX: S32.029A Unspecified fracture of second lumbar vertebra, initial encounter for closed fracture (principal); S32.059A Unspecified fracture of fifth lumbar vertebra, initial encounter for closed fracture; I10 Essential (primary) hypertension; L89.159 Pressure ulcer of sacral region, unspecified stage; N40.0 Benign prostatic hyperplasia without lower urinary tract symptoms; E78.5 Hyperlipidemia, unspecified; Z79.82 Long term (current) use of aspirin; W19.XXXA Unspecified fall, initial encounter; Z82.49 Family history of ischemic heart disease and other diseases of the circulatory system

== ENCOUNTER 2022-07-23 09:57 | Observation (INO) ==
[2022-07-23] MEDS ORDERED: ACETAMINOPHEN 1,000 MG/100 ML VIAL IV STA (10:16)
--- NOTE | 2022-07-23 10:31 | Emergency Department Note ---
Impression & Plan Abdominal pain, Leukocytosis ED Provider Note ED Provider Note NAME: IBETH WEAVER AGE:87 SEX: Male : 1935 ARRIVES VIA: Private vehicle INFORMANT: Patient ED PROVIDER(s): Marifer Wharton DO CHIEF COMPLAINT: Left-sided abdominal pain HPI: This is an 87-year-old male presents emergency department due to concern fo r left-sided abdominal pain which began yesterday morning. He states pain was waxing and waning throughout the day, and he had difficulty getting comfortable. He states he did try Tylenol as well as rubbing a liniment to the affected area which did not provide much relief. He denies any trauma or falls recently. Denies any change in his medications or diet. Patient states he did have 3 bowel movements yesterday. He states this is not necessarily unusual for him but does not happen frequently. He denies any black or bloody stools. He denies any change in urine or urinary habits. He denies fevers, chills, nausea, vomiting, or recent illness. PAST MEDICAL HISTORY:See Below PAST SURGICAL HISTORY:See Below FAMILY HISTORY:See Below SOCIAL HISTORY:See Below HOME MEDICATIONS:See Below ALLERGIES:See Below VITALS:See Below PHYSICAL EXAMINATION: GENERAL: alert, well appearing, well nourished, no distress, non-toxic EYE EXAM: normal conjunctiva, PERRL and EOM's grossly intact OROPHARYNX: no exudate, no erythema, lips, buccal mucosa, and tongue normal and mucous membranes are moist NECK: supple, no nuchal rigidity, no adenopathy, non-tender LUNGS: Clear to auscultation. Normal chest wall mechanics, no w/r/r HEART: no murmurs, S1 normal and S2 normal ABDOMEN: abdomen soft, non-tender, normo-active bowel sounds, no masses, no rebound or guarding. No overlying rash. No palpable hernia. BACK: Back is symmetrical on inspection and there is no deformity, no midline tenderness, no CVA tenderness. SKIN: no rashes, petechiae, orbruising UPPER EXTREMITIES: upper extremities are grossly normal. FROM, nml pulses b/l. LOWER EXTREMITIES: No pitting edema. FROM, nml pulses b/l. NEURO EXAM: Normal sensorium, cranial nerves II-XII grossly intact, normal spee ch, no facial droop,nogross weakness of arms, no gross weakness of legs. Gross sensation intact. No ataxia. Vital Signs: reviewed and remarkable Differential Diagnosis: Differential diagnoses includes but is not limited to gastritis, peptic ulcer disease, GERD, gallbladder disease, pancreatitis, small bowel obstruction, acute coronary syndrome, pericarditis, ischemic bowel, irritable bowel disease, irritable bowel syndrome, appendicitis, diverticulitis, malignancy, hernia, urinary tract infection, perforation, trauma, infectious. MEDICAL DECISION MAKING: This is an 87 yo male who presents with persistent LLQ pain for 2 days. Patient afebrile and VS stable. Labs drawn and sent, IV established, EKG performed and interpreted by me, and patient placed on tele. He was started on gentle IVF rehydration and given IV tylenol with some improvement in pain. Urine collected and showed no UTI or hematuria. CBC with elevated white blood cell count. Patient sent for CT imaging which did not reaveal any acute pathology. Lactic acid and procalcitonin added and were reassuring. Repeat CBC added and still showed significant leukocytosis. Due to concern regarding persistent pain and elevated WBC, case discussed with gen surg and then with hospitalist team. Consultation(s): 1635: Discussed with BRITNEY Santillan with gen surg. 1649: Discussed with Cezar Dhaliwal hospitalist team. ER Treatment Provided: See below 1450: Patient updated on results, states pain is improved following Tylenol but still present, worse with attempts at position change. Diagnostics Interpreted By Me: -ECG: Sinus tachycardia at 102, left axis, nml QRS and QTc, no acute ST/T wave changes -Cardiac Monitoring: An order was placed for continuous cardiac monitoring. The monitor shows a rate of 80 with normal sinus rhythm. -Laboratory studies: As stated above and show below. -Imaging studies: [] Triage Nursing Note Reviewed Prior/Outside Records Reviewed - prior urology visit Past Med/Surg History Medical History H/O actinic keratosis History of basal cell carcinoma Surgical History H/O hernia repair H/O vertebroplasty "T-11, 05/20/07" History of total knee arthroplasty Hx of cholecystectomy Family History Other Heart disease Hypertension Multiple sclerosis Social History Smoking Status: Never smoker Feels Safe at Home: Yes Allergies Allergies Allergy/AdvReac Type Severity Reaction Status Date / Time No Known Allergies Allergy Verified 07/20/22 13:25 Home Meds Home Medications Medication Instructions Recorded Confirmed docusate sodium 100 mg capsule 100 mg PO BID 06/27/19 07/23/22 metoprolol tartrate 50 mg tablet 50 mg PO BID 06/27/19 07/23/22 pravastatin 20 mg tablet 20 mg PO QAM 06/27/19 07/23/22 amoxicillin 500 mg tablet 2,000 mg PO .COMPLEX 06/30/20 07/23/22 ascorbic acid (vitamin C) 500 mg PO DAILY 06/30/20 07/23/22 ibuprofen 200 mg tablet 400 mg PO Q4H PRN Pain 07/23/22 07/23/22 multivitamin 1 tab PO DAILY 07/23/22 07/23/22 Previous Rx's Medication Instructions Recorded finasteride 5 mg tablet 5 mg PO DAILY #90 tabs 10/27/21 Results & Data (ED) Vital Signs Vital Signs - 24 hr 07/23/22 09:58 07/23/22 10:47 07/23/22 10:46 Temperature 36.4 C L Temperature Source Oral Pulse Rate 119 H 99 H 98 H Pulse Rate from SpO2 Sensor Respiratory Rate 16 23 Respiratory Effort / Characteristics Non-Labored Spontaneous Respiratory Depth Normal Respiratory Pattern Regular Blood Pressure 156/75 H Blood Pressure Mean 102 Pulse Oximetry 96 Oxygen Delivery Method Room Air Sepsis Recent Fever Within 48 Hours No Sepsis New/Unexplained Change in Mental Status N/A Sepsis Action Taken by Nursing No Action Required 07/23/22 11:21 07/23/22 11:21 07/23/22 11:30 Temperature Temperature Source Pulse Rate 87 87 Pulse Rate from SpO2 Sensor 87 88 Respiratory Rate 22 25 H Respiratory Effort / Characteristics Respiratory Depth Respiratory Pattern Blood Pressure 137/62 Blood Pressure Mean 87 Pulse Oximetry 93 93 Oxygen Delivery Method Room Air Room Air Sepsis Recent Fever Within 48 Hours Sepsis New/Unexplained Change in Mental Status Sepsis Action Taken by Nursing 07/23/22 12:14 07/23/22 12:14 07/23/22 12:30 Temperature Temperature Source Pulse Rate 81 81 Pulse Rate from SpO2 Sensor 82 81 Respiratory Rate 24 24 Respiratory Effort / Characteristics Respiratory Depth Respiratory Pattern Blood Pressure 131/54 L Blood Pressure Mean 79 Pulse Oximetry 95 93 Oxygen Delivery Method Sepsis Recent Fever Within 48 Hours Sepsis New/Unexplained Change in Mental Status Sepsis Action Taken by Nursing 07/23/22 13:00 07/23/22 13:00 07/23/22 13:30 Temperature Temperature Source Pulse Rate 77 Pulse Rate from SpO2 Sensor 77 86 Respiratory Rate 24 Respiratory Effort / Characteristics Respiratory Depth Respiratory Pattern Blood Pressure 111/58 L Blood Pressure Mean 75 Pulse Oximetry 93 95 Oxygen Delivery Method Room Air Sepsis Recent Fever Within 48 Hours Sepsis New/Unexplained Change in Mental Status Sepsis Action Taken by Nursing 07/23/22 14:00 07/23/22 14:00 07/23/22 14:30 Temperature Temperature Source Pulse Rate Pulse Rate from SpO2 Sensor 80 78 Respiratory Rate Respiratory Effort / Characteristics Respiratory Depth Respiratory Pattern Blood Pressure 137/62 Blood Pressure Mean 87 Pulse Oximetry 94 95 Oxygen Delivery Method Room Air Room Air Sepsis Recent Fever Within 48 Hours Sepsis New/Unexplained Change in Mental Status Sepsis Action Taken by Nursing 07/23/22 15:00 07/23/22 15:00 Temperature Temperature Source Pulse Rate Pulse Rate from SpO2 Sensor 77 Respiratory Rate Respiratory Effort / Characteristics Respiratory Depth Respiratory Pattern Blood Pressure 123/62 Blood Pressure Mean 82 Pulse Oximetry 94 Oxygen Delivery Method Room Air Sepsis Recent Fever Within 48 Hours Sepsis New/Unexplained Change in Mental Status Sepsis Action Taken by Nursing Laboratory Data 07/23/22 10:41 07/23/22 10:41 Lab Results 07/23/22 07/23/22 07/23/22 Range/Units 10:40 10:41 10:41 WBC 20.26 H (4.8-10.8) K/ul RBC 4.57 L (4.70-6.10) M/uL Hgb 12.9 L (14.0-18.0) g/dl Hct 39.1 L (42.0-52.0) % MCV 85.6 (80.0-100.0) fL MCH 28.2 (25.0-34.0) pg MCHC 33.0 (32.0-36.0) g/dL RDW Std Deviation 49.5 H (36.4-46.3) fL RDW Coeff of Siva 16.1 H (11.5-14.5) % Plt Count 109 L (130-400) K/uL MPV 11.8 (9.4-12.4) fL Absolute Nucleated RBC 0.04 (0-0.12) K/uL Nucleated RBC % (auto) 0.2 % Neutrophils % (Manual) 63 % Lymphocytes % (Manual) 22 % Metamyelocytes % (Man) 8 % Myelocytes % (Man) 7 % Neutrophils # (Manual) 12.76 H (1.40-6.50) K/uL Total Absolute Neuts 12.76 H (1.4-6.5) K/uL Lymphocytes # (Manual) 4.46 H (1.2-3.4) K/uL Total Abs Lymphocytes 4.46 H (1.2-3.4) K/uL Metamyelocytes # (Man) 1.62 H (0-0) K/uL Myelocytes # (Manual) 1.42 H (0-0) K/uL Hypogranular Neuts 1+ Polychromasia 1+ Peripher Smr Path Cons Sodium 139 (136-145) mmol/L Potassium 3.7 (3.5-5.1) mmol/L Chloride 103 (98-107) mmol/L Carbon Dioxide 28 (21-32) mmol/L Anion Gap 8 (3-11) BUN 15 (6-23) mg/dl Creatinine 0.62 (0.6-1.4) mg/dl Est Cr Clr Drug Dosing 100.0 ml/min Est GFR ( Amer) 102.7 ml/min Est GFR (Non-Af Amer) 88.6 ml/min BUN/Creatinine Ratio 24.2 H (10-20) Glucose 163 H (70-99(Fasting)) mg/dl Lactate (0.4-2.0) mmol/L Calcium 9.3 (8.6-10.3) mg/dl Total Bilirubin 1.0 (0.2-1.0) mg/dl AST 19 (13-39) U/L ALT 9 (7-52) U/L Alkaline Phosphatase 63 (34-104) U/L Total Protein 6.8 (6.0-8.3) gm/dl Albumin 3.9 (3.4-5.0) gm/dl Globulin 2.9 (2.5-4.0) gm/dl Albumin/Globulin Ratio 1.3 (0.9-2) Lipase 15 (11-82) U/L Procalcitonin < 0.05 (0-0.5) ng/ml Urine Color Urine Appearance (Clear) Urine pH (4.5-7.5) Ur Specific [place] (1.000-1.030) Urine Protein (Negative) Urine Glucose (UA) (Negative) Urine Ketones (Negative) Urine Blood (Negative) Urine Nitrite (Negative) Urine Bilirubin (Negative) Urine Urobilinogen (Negative) Ur Leukocyte Esterase (Negative) 07/23/22 07/23/22 07/23/22 Range/Units 11:19 12:05 15:08 WBC 19.24 H (4.8-10.8) K/ul RBC 4.22 L (4.70-6.10) M/uL Hgb 11.7 L (14.0-18.0) g/dl Hct 35.7 L (42.0-52.0) % MCV 84.6 (80.0-100.0) fL MCH 27.7 (25.0-34.0) pg MCHC 32.8 (32.0-36.0) g/dL RDW Std Deviation 48.9 H (36.4-46.3) fL RDW Coeff of Siva 16.0 H (11.5-14.5) % Plt Count 102 L (130-400) K/uL MPV 11.9 (9.4-12.4) fL Absolute Nucleated RBC 0.03 (0-0.12) K/uL Nucleated RBC % (auto) 0.2 % Neutrophils % (Manual) % Lymphocytes % (Manual) % Metamyelocytes % (Man) % Myelocytes % (Man) % Neutrophils # (Manual) (1.40-6.50) K/uL Total Absolute Neuts (1.4-6.5) K/uL Lymphocytes # (Manual) (1.2-3.4) K/uL Total Abs Lymphocytes (1.2-3.4) K/uL Metamyelocytes # (Man) (0-0) K/uL Myelocytes # (Manual) (0-0) K/uL Hypogranular Neuts Polychromasia Peripher Smr Path Cons Sodium (136-145) mmol/L Potassium (3.5-5.1) mmol/L Chloride (98-107) mmol/L Carbon Dioxide (21-32) mmol/L Anion Gap (3-11) BUN (6-23) mg/dl Creatinine (0.6-1.4) mg/dl Est Cr Clr Drug Dosing ml/min Est GFR ( Amer) ml/min Est GFR (Non-Af Amer) ml/min BUN/Creatinine Ratio (10-20) Glucose (70-99(Fasting)) mg/dl Lactate 2.0 (0.4-2.0) mmol/L Calcium (8.6-10.3) mg/dl Total Bilirubin (0.2-1.0) mg/dl AST (13-39) U/L ALT (7-52) U/L Alkaline Phosphatase (34-104) U/L Total Protein (6.0-8.3) gm/dl Albumin (3.4-5.0) gm/dl Globulin (2.5-4.0) gm/dl Albumin/Globulin Ratio (0.9-2) Lipase (11-82) U/L Procalcitonin (0-0.5) ng/ml Urine Color Dark Yellow Urine Appearance Clear (Clear) Urine pH 5.0 (4.5-7.5) Ur Specific [place] 1.035 H (1.000-1.030) Urine Protein Negative (Negative) Urine Glucose (UA) Negative (Negative) Urine Ketones Negative (Negative) Urine Blood Negative (Negative) Urine Nitrite Negative (Negative) Urine Bilirubin Negative (Negative) Urine Urobilinogen Negative (Negative) Ur Leukocyte Esterase Negative (Negative) 07/23/22 Range/Units 15:08 WBC (4.8-10.8) K/ul RBC (4.70-6.10) M/uL Hgb (14.0-18.0) g/dl Hct (42.0-52.0) % MCV (80.0-100.0) fL MCH (25.0-34.0) pg MCHC (32.0-36.0) g/dL RDW Std Deviation (36.4-46.3) fL RDW Coeff of Siva (11.5-14.5) % Plt Count (130-400) K/uL MPV (9.4-12.4) fL Absolute Nucleated RBC (0-0.12) K/uL Nucleated RBC % (auto) % Neutrophils % (Manual) % Lymphocytes % (Manual) % Metamyelocytes % (Man) % Myelocytes % (Man) % Neutrophils # (Manual) (1.40-6.50) K/uL Total Absolute Neuts (1.4-6.5) K/uL Lymphocytes # (Manual) (1.2-3.4) K/uL Total Abs Lymphocytes (1.2-3.4) K/uL Metamyelocytes # (Man) (0-0) K/uL Myelocytes # (Manual) (0-0) K/uL Hypogranular Neuts Polychromasia Peripher Smr Path Cons Cancelled Sodium (136-145) mmol/L Potassium (3.5-5.1) mmol/L Chloride (98-107) mmol/L Carbon Dioxide (21-32) mmol/L Anion Gap (3-11) BUN (6-23) mg/dl Creatinine (0.6-1.4) mg/dl Est Cr Clr Drug Dosing ml/min Est GFR ( Amer) ml/min Est GFR (Non-Af Amer) ml/min BUN/Creatinine Ratio (10-20) Glucose (70-99(Fasting)) mg/dl Lactate (0.4-2.0) mmol/L Calcium (8.6-10.3) mg/dl Total Bilirubin (0.2-1.0) mg/dl AST (13-39) U/L ALT (7-52) U/L Alkaline Phosphatase (34-104) U/L Total Protein (6.0-8.3) gm/dl Albumin (3.4-5.0) gm/dl Globulin (2.5-4.0) gm/dl Albumin/Globulin Ratio (0.9-2) Lipase (11-82) U/L Procalcitonin (0-0.5) ng/ml Urine Color Urine Appearance (Clear) Urine pH (4.5-7.5) Ur Specific [place] (1.000-1.030) Urine Protein (Negative) Urine Glucose (UA) (Negative) Urine Ketones (Negative) Urine Blood (Negative) Urine Nitrite (Negative) Urine Bilirubin (Negative) Urine Urobilinogen (Negative) Ur Leukocyte Esterase (Negative) Administered Medications Sodium Chloride (Nss 1000ml) 1,000 mls @ 125 mls/hr IV .Q8H ALF Stop: 08/22/22 10:14 Last Infusion: 07/23/22 21:27 Dose: 0 mls/hr Documented By: Admin: 07/23/22 10:45 Dose: 125 mls/hr Documented By: IVANA Discontinued Medications Acetaminophen (Acetaminophen 500 Mg Tab) 1,000 mg PO NOW STA Stop: 07/23/22 17:21 Last Admin: 07/23/22 17:56 Dose: 1,000 mg Documented By: RADHA Dicyclomine HCl (Dicyclomine Hcl 10 Mg Cap) 10 mg PO NOW ONE Stop: 07/23/22 14:44 Last Admin: 07/23/22 15:11 Dose: 10 mg Documented By: IVANA Acetaminophen (Ofirmev) 1,000 mg in 100 mls @ 400 mls/hr IV NOW STA Stop: 07/23/22 10:30 Last Infusion: 07/23/22 11:01 Dose: 0 mls/hr Documented By: Admin: 07/23/22 10:46 Dose: 400 mls/hr Documented By: IVANA Ioversol (Optiray 350 100ml) 94 ml IV ONCE ONE Stop: 07/23/22 13:16 Last Admin: 07/23/22 13:16 Dose: 94 ml Documented By: KATHLEEN Imaging Data Radiologist's Impression: Abdomen/Pelvis CT 07/23/22 12:[address] WITH IV CONTRAST CT DOSE: 895.95 mGy.cm HISTORY: left sided abd pain TECHNIQUE: Multiaxial CT images of the abdomen and pelvis were performed fo llowing the use of intravenous contrast. A dose lowering technique was utilized adhering to the principles of ALARA. COMPARISON STUDY: Pelvis CT 09/24/2016. Thoracic spine CT 09/24/2016. FINDINGS: Mild dependent changes seen at the lung bases. No pneumoperitoneum. No pneumatosis. Old compression deformities and vertebroplasty is again noted within the thoracic and lumbar spine. No acute fractures identified. There are 2 adjacent right paravertebral nodules at the T10 level with the largest measuring 13 mm. This is best seen on image 55. This is new from the prior study. These are indeterminate could represent small lymph nodes. Subcentimeter left anterior diaphragmatic lymph nodes are also noted. There is a 2 cm sebaceous cyst within the left inguinal region. Cholecystectomy. The spleen is enlarged measuring 15.5 cm in length. Multiple calcified splenic granulomas are noted. The main portal vein is patent. The liver, pancreas, and right adrenal gland are unremarkable. Mild nodular thickening of the left adrenal gland. Normal left kidney. A few subcentimeter hypodense lesions within the right kidney which are too small to characterize. No hydronephrosis. 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 This remains unchanged. Single mildly enlarged gastrohepatic lymph node on image 123 which measures 18 x 11 mm. This has increased in size. Otherwise, no retroperitoneal or pelvic lymphadenopathy. No mesenteric lymphadenopathy. Moderate calcified plaque within the normal caliber abdominal aorta and iliac arteries. The prostate gland is mildly enlarged. No bladder wall thickening. The small anterior bladder diverticulum. No pelvic free fluid. A few colonic diverticula. No evidence for acute diverticulitis. No bowel wall thickening or obstruction. Normal appendix. IMPRESSION: 1. No bowel wall thickening or obstruction. 2. Normal appendix. 3. Colonic diverticulosis. No evidence for acute diverticulitis. 4. Splenomegaly. 5. A few mildly enlarged lymph nodes within the lower chest/upper abdomen as described above. These are new from the prior study. Therefore, 6 month abdomen and pelvis CT follow-up recommended to exclude the possibility of a lymphoproliferative disorder given the associated splenomegaly. ACT 112: Positive. There are findings on this exam that require communication between the performing entity and the patient following Patient Test Result Information Act ([place] Act 112) guidelines. Electronically signed by: [place] M.D. 07/23/2022 1:55 PM Discharge Plan Visit Data Chief Complaint: Abdominal Pain Stated Complaint: LEFT SIDED PAIN ED Provider: Marifer Wharton Discharge Problem: Abdominal pain, Leukocytosis Patient Disposition: Admitted As Inpatient Discharge Instructions Interventions: ED Discharge Assessment Last Done: 07/23/22 21:00
[2022-07-23] MEDS: SODIUM CHLORIDE 0.9% 1000ML 1,000 ML IV SCH ×2 (10:45→22:12)
[2022-07-23 11:05] LABS: Hematocrit (blood only) 39.1 % (42.0-52.0); Hemoglobin 12.9 g/dl (14.0-18.0); Mean Corpuscular Hemoglobin 28.2 pg (25.0-34.0); Mean Corpuscular Volume 85.6 fL (80.0-100.0); Mean Platelet Volume 11.8 fL (9.4-12.4); Nucleated RBC # (auto) 0.04 K/uL (0-0.12); Nucleated RBC % (auto) 0.2 %; Platelet Count 109 K/uL (130-400); RDW Coefficient of Variation 16.1 % (11.5-14.5); RDW Standard Deviation 49.5 fL (36.4-46.3); Red Blood Count 4.57 M/uL (4.70-6.10); White Blood Count 20.26 K/ul (4.8-10.8)
[2022-07-23 11:18] LABS: Albumin Globulin Ratio 1.3 (0.9-2); Albumin Level 3.9 gm/dl (3.4-5.0); BUN Creatinine Ratio 24.2 (10-20); Calcium 9.3 mg/dl (8.6-10.3); Est GFR (African American) 102.7 ml/min; Est GFR (Non-African American) 88.6 ml/min; Globulin 2.9 gm/dl (2.5-4.0); Potassium 3.7 mmol/L (3.5-5.1); Total Protein 6.8 gm/dl (6.0-8.3)
[2022-07-23 11:25] LABS: ALC (manual) 4.46 K/uL (1.2-3.4); ANC (manual) 12.76 K/uL (1.4-6.5); Hypogranular Neutrophils 1+; Lymphocytes # (manual) 4.46 K/uL (1.2-3.4); Lymphocytes % (manual) 22 %; Metamyelocytes # (manual) 1.62 K/uL (0-0); Metamyelocytes % (manual) 8 %; Myelocytes # (manual) 1.42 K/uL (0-0); Myelocytes % (manual) 7 %; Neutrophils # (manual) 12.76 K/uL (1.40-6.50); Neutrophils % (manual) 63 %; Polychromasia 1+
[2022-07-23 12:28] LABS: Appearance Urine Clear (Clear); Bilirubin Urine Negative (Negative); Blood Urine Negative (Negative); Color Urine Dark Yellow; Glucose Urine UA Negative (Negative); Ketones Urine Negative (Negative); Leukocyte Esterase Urine Negative (Negative); Nitrite Urine Negative (Negative); Protein Urine Negative (Negative); Specific Gravity Urine 1.035 (1.000-1.030); Urobilinogen Urine Negative (Negative)
[2022-07-23] MEDS ORDERED: OPTIRAY 350 100ml IV ONE (13:15)
--- NOTE | 2022-07-23 13:56 | CT Scan Report ---
ABDOMEN AND PELVIS CT WITH IV CONTRAST CT DOSE: 895.95 mGy.cm HISTORY: left sided abd pain TECHNIQUE: Multiaxial CT images of the abdomen and pelvis were performed following the use of intrave nous contrast. A dose lowering technique was utilized adhering to the principles of ALARA. COMPARISON STUDY: Pelvis CT 09/24/2016. Thoracic spine CT 09/24/2016. FINDINGS: Mild dependent changes seen at the lung bases. No pneumoperitoneum. No pneumatosis. Old com pression deformities and vertebroplasty is again noted within the thoracic and lumbar spine. No acute fractures identified. There are 2 adjacent right paravertebral nodules at the T10 level with the lar gest measuring 13 mm. This is best seen on image 55. This is new from the prior study. These are inde terminate could represent small lymph nodes. Subcentimeter left anterior diaphragmatic lymph nodes ar e also noted. There is a 2 cm sebaceous cyst within the left inguinal region. Cholecystectomy. The sp alexander is enlarged measuring 15.5 cm in length. Multiple calcified splenic granulomas are noted. The ma in portal vein is patent. The liver, pancreas, and right adrenal gland are unremarkable. Mild nodular thickening of the left adrenal gland. Normal left kidney. A few subcentimeter hypodense lesions with in the right kidney which are too small to characterize. No hydronephrosis. 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 This remains unchanged. Single mildly e nlarged gastrohepatic lymph node on image 123 which measures 18 x 11 mm. This has increased in size. Otherwise, no retroperitoneal or pelvic lymphadenopathy. No mesenteric lymphadenopathy. Moderate calc ified plaque within the normal caliber abdominal aorta and iliac arteries. The prostate gland is mild ly enlarged. No bladder wall thickening. The small anterior bladder diverticulum. No pelvic free flui d. A few colonic diverticula. No evidence for acute diverticulitis. No bowel wall thickening or obstr uction. Normal appendix. IMPRESSION: 1. No bowel wall thickening or obstruction. 2. Normal appendix. 3. Colonic diverticulosis. No evidence for acute diverticulitis. 4. Splenomegaly. 5. A few mildly enlarged lymph nodes within the lower chest/upper abdomen as described above. These a re new from the prior study. Therefore, 6 month abdomen and pelvis CT follow-up recommended to exclud e the possibility of a lymphoproliferative disorder given the associated splenomegaly. ACT 112: Positive. There are findings on this exam that require communication between the performing entity and the patient following Patient Test Result Information Act ([place] Act 112) guidelines. Electronically signed by: [place] M.D. 07/23/2022 1:55 PM
[2022-07-23] MEDS ORDERED: DICYCLOMINE HCL 10 MG CAP PO ONE (14:43)
--- NOTE | 2022-07-23 14:53 | Electrocardiogram Report ---
Test Reason : Blood Pressure : / mmHG Vent. Rate : 102 BPM Atrial Rate : 102 BPM P-R Int : 166 ms QRS Dur : 088 ms QT Int : 334 ms P-R-T Axes : 026 -47 064 degrees QTc Int : 435 ms Sinus tachycardia Left anterior fascicular block Abnormal ECG When compared with ECG of 24-SEP-2016 12:12, Left anterior fascicular block is now Present Confirmed by Jorge Kaye ([id number]) on 07/23/2022 2:53:17 PM Referred By: Confirmed By:Jorge Kaye
[2022-07-23 15:45] LABS: Hematocrit (blood only) 35.7 % (42.0-52.0); Hemoglobin 11.7 g/dl (14.0-18.0); Mean Corpuscular Hemoglobin 27.7 pg (25.0-34.0); Mean Corpuscular Hgb Conc 32.8 g/dL (32.0-36.0); Mean Corpuscular Volume 84.6 fL (80.0-100.0); Mean Platelet Volume 11.9 fL (9.4-12.4); Nucleated RBC # (auto) 0.03 K/uL (0-0.12); Nucleated RBC % (auto) 0.2 %; Platelet Count 102 K/uL (130-400); RDW Standard Deviation 48.9 fL (36.4-46.3); Red Blood Count 4.22 M/uL (4.70-6.10); White Blood Count 19.24 K/ul (4.8-10.8)
--- NOTE | 2022-07-23 16:53 | History & Physical Report ---
Date of Service July 23, 2022 Assessment & Plan (1) Abdominal pain: (2) Splenomegaly: Plan: -Admit to [facility] A CT of the abdomen and pelvis reviewed personally, no bowel wall thickening or obstruction, colonic diverticulosis, no acute diverticulitis, splenomegaly -Peripheral smear ordered to assess for lymphoproliferative disorder given the splenomegaly seen on scan. -CBC with differential reviewed from outpatient in December 2021 showing elevated white count at that time without known source of infection. Trend cbc w/ diff. -General surgery consulted, per their recommendations we will not give antibiotics at this time -Allow diet this evening, NSS at 80ml/hr x 1 bag, will make n.p.o. at midnight in case of needs for further procedure and to evaluate if improved -WBC of 19.2, negative lactate and procalcitonin -Pain controlled well with Tylenol in the ER, continue as needed, allow ibuprofen as needed, avoid narcotics -Check stool studies, C. difficile -Denies any recent viral symptoms, denies history of COVID19, has been vaccinated, denies any recent tick bites, denies sick contacts-patient has not heard of this before, no previous CT for comparison and outpatient epic chart. -PT/OT consults (3) BPH loc w/o ur obs/LUTS: Plan: -May continue finasteride -Last PSA from June 2011 was 1.66 (4) Hypertension: Plan: -BP and HR well controlled, continue metoprolol tartrate 50 mg twice daily (5) HLD (hyperlipidemia): Plan: -Continue pravastatin 20 mg daily DVT PPx: - teds, scds CODE: Full code Dispo: From home, likely to remain in the hospital x 1-2 days A total of 65 minutes were spent with greater than 50% of that time face to face with the patient, personally reviewing all current laboratories, imaging studies, past medication reconciliation, outpatient chart review, and discussion with specialists to collaborate care for the patient with attending. Please see attending documentation for corrections and/or additions. History of Present Illness Chief Complaint: Abdominal Pain x 2 days Primary Care Provider: Louis Combs MD This is a 87 yo M with PMHx of HTN, BPH, lumbar spinal stenosis, history of diverticulosis of the colon, history of spinal compression fracture and status post lumbar spine surgery for decompression of spinal cord in 2017 (hx of two separate surgeries) , who presents to the hospital with acute onset of left lower quadrant abdominal pain x2 days. He reports getting up a few times overnight and thought that possibly pulled a muscle in his left side. He had put some ointment on it but did not seem to do anything for him. Patient did received IV Tylenol 1000 mg in the ER which seemed to significantly improve his pain. He reports it is currently a 5/10, and coming back after my examination with palpation of his abdomen. He denies any fever and chills but does get sweats with minimal ADLs and this has been ongoing for a few years. Denies any nausea or vomiting, and has not eaten anything today. He had 3 BMs yesterday, once he had to strain, then normal, then the last time was loose. Patient states when this happens then he will not have any bowel movement for 24 hours afterwards, then restarts. He does take stool softener twice daily at home. He admits to having an anal fissure and sometimes see bright red blood. He denies any large amount of bright blood in the bowel, no dark tarry bowel movements. Pt denies any recent changes in diet. Pt is on [place] water source. He has not been out and about much, denies any recent viral illnesses, no known tick bites, no recent sick contacts. He lives at home by himself and is independent, cooks and cleans for himself. His daughter, Yoli, lives in [facility]. He has a PCP appointment upcoming this Tuesday. Denies alcohol or smoking use. Allergies Allergy/AdvReac Type Severity Reaction Status Date / Time No Known Allergies Allergy Verified 07/20/22 13:25 Home Medications Medication Instructions Recorded Confirmed Type docusate sodium 100 mg capsule 100 mg PO BID 06/27/19 07/23/22 History metoprolol tartrate 50 mg tablet 50 mg PO BID 06/27/19 07/23/22 History pravastatin 20 mg tablet 20 mg PO QAM 06/27/19 07/23/22 History amoxicillin 500 mg tablet 2,000 mg PO .COMPLEX 06/30/20 07/23/22 History ascorbic acid (vitamin C) 500 mg PO DAILY 06/30/20 07/23/22 History finasteride 5 mg tablet 5 mg PO DAILY #90 tabs 10/27/21 07/23/22 Rx ibuprofen 200 mg tablet 400 mg PO Q4H PRN Pain 07/23/22 07/23/22 History multivitamin 1 tab PO DAILY 07/23/22 07/23/22 History Past Med/Surg History Medical History (Updated 07/23/22 @ 16:54 by Shar Amin, DO) H/O actinic keratosis History of basal cell carcinoma Surgical History (Updated 09/04/20 @ 08:47 by Camila Menezes) H/O hernia repair H/O vertebroplasty "T-11, 05/20/07" History of total knee arthroplasty Hx of cholecystectomy Family History (Updated 07/23/22 @ 16:49 by Bekah Ng PA-C) Other Heart disease Hypertension Multiple sclerosis Social History (Updated 09/04/20 @ 08:47 by Camila Menezes) Smoking Status: Never smoker Feels Safe at Home: Yes Review of Systems Review of Systems: Constitutional: No fever, sweats or chills Eyes: No diplopia, no worsening or blurred vision ENT: normal hearing, no trouble swallowing Respiratory: No cough, sputum, dyspnea at rest or on exertion Cardiovascular: No chest pain, tightness or palpitations Abdomen: As per HPI Musculoskeletal: No joint pain, calf pain, swelling Neurologic: No weakness, numbness/tingling, or balance problems, no recent falls, uses a cane for ambulation assistance Psychiatric: No anxiety or depression Skin: No rash or itch Physical Exam Physical Exam: General: awake, alert, no apparent distress Head: Normocephalic, atraumatic ENT: PERRL, EOMI, no pharyngeal exudate, mucous membranes moist Chest: Clear to auscultation, on room air, no adventitious breath sounds Cardiac: Regular rate and rhythm, no murmur, no JVD, normal peripheral pulses, good capillary refill Back: Normal curvature of the spine, no CVA tenderness Abdominal: NABS x 4 quadrants, soft, nondistended, + LLQ tender to palpation, + palpable splenomegaly, no rebound or guarding Extremities: Normal inspection, 1+ peripheral edema BLE, no erythema, calfs nontender to palpation Skin: Multiple actinic keratoses over extremities, back, rajan hemangiomas on trunk Psych: Normal mood and affect Neuro: AAO x 3, strength intact bilaterally and rated 5/5, no motor deficits, speech is clear, no peripheral sensory deficits. Gait from bed to bathroom witnessed, uses cane, steady on his feet. Results & Data Results & Data Vital Signs (Past 12 Hours) Vital Signs Temp Pulse Resp BP Pulse Ox O2 Del Method 07/23/22 15:00 94 Room Air 07/23/22 15:00 123/62 07/23/22 14:30 95 Room Air 07/23/22 14:00 94 Room Air 07/23/22 14:00 137/62 07/23/22 13:30 95 Room Air 07/23/22 13:00 77 24 93 07/23/22 13:00 111/58 L 07/23/22 12:30 81 24 93 07/23/22 12:14 81 24 95 07/23/22 12:14 131/54 L 07/23/22 11:30 87 25 H 93 Room Air 07/23/22 11:21 87 22 93 Room Air 07/23/22 11:21 137/62 07/23/22 10:46 98 H 23 07/23/22 10:47 99 H 07/23/22 09:58 36.4 C L 119 H 16 156/75 H 96 Room Air Laboratory Results 07/23/22 11:27 Aerobic Blood Culture - Pending Blood Anaerobic Blood Culture - Pending 07/23/22 11:19 Aerobic Blood Culture - Pending Blood Anaerobic Blood Culture - Pending 07/23/22 07/23/22 07/23/22 15:08 12:05 11:19 WBC 19.24 H RBC 4.22 L Hgb 11.7 L Hct 35.7 L MCV 84.6 MCH 27.7 MCHC 32.8 RDW Std Deviation 48.9 H RDW Coeff of Siva 16.0 H Plt Count 102 L MPV 11.9 Absolute Nucleated RBC 0.03 Nucleated RBC % (auto) 0.2 Neutrophils % (Manual) Lymphocytes % (Manual) Metamyelocytes % (Man) Myelocytes % (Man) Neutrophils # (Manual) Total Absolute Neuts Lymphocytes # (Manual) Total Abs Lymphocytes Metamyelocytes # (Man) Myelocytes # (Manual) Hypogranular Neuts Polychromasia Sodium Potassium Chloride Carbon Dioxide Anion Gap BUN Creatinine Est Cr Clr Drug Dosing Est GFR ( Amer) Est GFR (Non-Af Amer) BUN/Creatinine Ratio Glucose Lactate 2.0 Calcium Total Bilirubin AST ALT Alkaline Phosphatase Total Protein Albumin Globulin Albumin/Globulin Ratio Lipase Procalcitonin Urine Color Dark Yellow Urine Appearance Clear Urine pH 5.0 Ur Specific [place] 1.035 H Urine Protein Negative Urine Glucose (UA) Negative Urine Ketones Negative Urine Blood Negative Urine Nitrite Negative Urine Bilirubin Negative Urine Urobilinogen Negative Ur Leukocyte Esterase Negative 07/23/22 07/23/22 07/23/22 10:41 10:41 10:40 WBC 20.26 H RBC 4.57 L Hgb 12.9 L Hct 39.1 L MCV 85.6 MCH 28.2 MCHC 33.0 RDW Std Deviation 49.5 H RDW Coeff of Siva 16.1 H Plt Count 109 L MPV 11.8 Absolute Nucleated RBC 0.04 Nucleated RBC % (auto) 0.2 Neutrophils % (Manual) 63 Lymphocytes % (Manual) 22 Metamyelocytes % (Man) 8 Myelocytes % (Man) 7 Neutrophils # (Manual) 12.76 H Total Absolute Neuts 12.76 H Lymphocytes # (Manual) 4.46 H Total Abs Lymphocytes 4.46 H Metamyelocytes # (Man) 1.62 H Myelocytes # (Manual) 1.42 H Hypogranular Neuts 1+ Polychromasia 1+ Sodium 139 Potassium 3.7 Chloride 103 Carbon Dioxide 28 Anion Gap 8 BUN 15 Creatinine 0.62 Est Cr Clr Drug Dosing 100.0 Est GFR ( Amer) 102.7 Est GFR (Non-Af Amer) 88.6 BUN/Creatinine Ratio 24.2 H Glucose 163 H Lactate Calcium 9.3 Total Bilirubin 1.0 AST 19 ALT 9 Alkaline Phosphatase 63 Total Protein 6.8 Albumin 3.9 Globulin 2.9 Albumin/Globulin Ratio 1.3 Lipase 15 Procalcitonin < 0.05 Urine Color Urine Appearance Urine pH Ur Specific [place] Urine Protein Urine Glucose (UA) Urine Ketones Urine Blood Urine Nitrite Urine Bilirubin Urine Urobilinogen Ur Leukocyte Esterase Diagnostic Findings Abdomen/Pelvis CT 07/23/22 12:[address] WITH IV CONTRAST CT DOSE: 895.95 mGy.cm HISTORY: left sided abd pain TECHNIQUE: Multiaxial CT images of the abdomen and pelvis were performed following the use of intravenous contrast. A dose lowering technique was utilized adhering to the principles of ALARA. COMPARISON STUDY: Pelvis CT 09/24/2016. Thoracic spine CT 09/24/2016. FINDINGS: Mild dependent changes seen at the lung bases. No pneumoperitoneum. No pneumatosis. Old compression deformities and vertebroplasty is again noted within the thoracic and lumbar spine. No acute fractures identified. There are 2 adjacent right paravertebral nodules at the T10 level with the largest measuring 13 mm. This is best seen on image 55. This is new from the prior study. These are indeterminate could represent small lymph nodes. Subcentimeter left anterior diaphragmatic lymph nodes are also noted. There is a 2 cm sebaceous cyst within the left inguinal region. Cholecystectomy. The spleen is enlarged measuring 15.5 cm in length. Multiple calcified splenic granulomas are noted. The main portal vein is patent. The liver, pancreas, and right adrenal gland are unremarkable. Mild nodular thickening of the left adrenal gland. Normal left kidney. A few subcentimeter hypodense lesions within the right kidney which are too small to characterize. No hydronephrosis. 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 This remains unchanged. Single mildly enlarged gastrohepatic lymph node on image 123 which measures 18 x 11 mm. This has increased in size. Otherwise, no retroperitoneal or pelvic lymphadenopathy. No mesenteric lymphadenopathy. Moderate calcified plaque within the normal caliber abdominal aorta and iliac arteries. The prostate gland is mildly enlarged. No bladder wall thickening. The small anterior bladder diverticulum. No pelvic free fluid. A few colonic diverticula. No evidence for acute diverticulitis. No bowel wall thickening or obstruction. Normal appendix. IMPRESSION: 1. No bowel wall thickening or obstruction. 2. Normal appendix. 3. Colonic diverticulosis. No evidence for acute diverticulitis. 4. Splenomegaly. 5. A few mildly enlarged lymph nodes within the lower chest/upper abdomen as described above. These are new from the prior study. Therefore, 6 month abdomen and pelvis CT follow-up recommended to exclude the possibility of a lymphoproliferative disorder given the associated splenomegaly. ACT 112: Positive. There are findings on this exam that require communication between the performing entity and the patient following Patient Test Result Information Act ([place] Act 112) guidelines. Electronically signed by: oNrth Fortune M.D. 07/23/2022 1:55 PM ECG Additional Comments: 23-JUL-2022 10:26:26 [facility]-EDSTAT ROUTINE RETRIEVAL Sinus tachycardia Left anterior fascicular block Abnormal ECG When compared with ECG of 24-SEP-2016 12:12, Left anterior f ascicular block is now Present Confirmed by Jorge Kaye ([id number]) on 07/23/2022 2:53:17 PM 25mm/[id number] [id number]: 16 Confirmed By: Jorge Payne. rate 102 BPM WI interval 166 ms QRS duration 88 ms QT/QTc 334/435 ms Code Status & VTE Plan Code Status Full code- discussed with the patient at bedside Supervising Physician Co-Signing Physician Notes Pt seen and examined by me, care coordinated w/ G. BRITNEY Ng, pls refer to her note above for further detail. Pt is an 87 yo M with HTN, BPH, lumbar spinal stenosis, history of diverticulosis of the colon, history of spinal compression fracture and status post lumbar spine surgery for decompression of spinal cord in 2017 (hx of two separate surgeries) , who presents to the hospital with acute onset of left lower quadrant abdominal pain x2 days. WBC elev. at 20K, procalcitonin normal, lactate 2. CT abd./ pelvis obtained and significant for Splenomegaly and A few mildly enlarged lymph nodes within the lower chest/upper abdomen as described above. These are new from the prior study. Therefore, 6 month abdomen and pelvis CT follow-up recommended to exclude the possibility of a lymphoproliferative disorder given the associated splenomegaly. Pt was seen by surgery, pain improved with tylenol. Currently patient is lying in bed, in no acute distress. He is awake alert oriented, answering questions appropriately. He is breathing comfortably on room air. Lungs are clear to auscultation, heart sounds regular. Abdomen is obese soft, with positive bowel sounds, mildly tender to palpation in left lower quadrant. 1+ lower extremity edema. No erythema or rash noted. Skin is warm and dry. Patient is moving extremities. Blood cultures pending. UA negative. No clear sign of infection. However concern for lymphoproliferative disorder. Blood smear ordered to be reviewed by pathology. Will continue to closely monitor patient overnight, as discussed with the surgery. stool studies ordered. MD Baylee
--- NOTE | 2022-07-23 16:53 | History & Physical Report ---
Date of Service July 23, 2022 Assessment & Plan (1) Abdominal pain: Plan: Abdominal pain much improved however at his age he lives alone with a 20,000 white blood cell count I do not feel comfortable leaving him go home. I want to admit him for observation overnight. We will repeat his white blood cell count in the morning and if he does well discharge him then. We might need to consider lymphoproliferative disorder considering his white blood cell count splenomegaly and lymphadenopathy seen on CT scan. We can address this as an outpatient if he clinically improves overnight. (2) Leukocytosis: History of Present Illness Primary Care Provider: Louis Combs MD 87-year-old male who began this morning with acute onset of left lower quadrant abdominal pain. It was rather severe at the time. He drove himself to the emergency room today. He was given some Tylenol here in the ER and he now feels much better. Currently not complaining of pain or nausea. Allergies Allergy/AdvReac Type Severity Reaction Status Date / Time No Known Allergies Allergy Verified 07/20/22 13:25 Home Medications Medication Instructions Recorded Confirmed Type alendronate 70 mg tablet mg PO 06/27/19 07/20/22 History cholecalciferol (vitamin D3) 50 PO 06/27/19 07/20/22 History mcg (2,000 unit) capsule docusate sodium 100 mg capsule mg PO 06/27/19 07/20/22 History metoprolol tartrate 50 mg tablet 50 mg PO DAILY 06/27/19 07/20/22 History peg [id number] 1 drp ophthalmic (eye) 06/27/19 07/20/22 History %-0.2 %-0.2 % eye drops pravastatin 20 mg tablet 20 mg PO DAILY 06/27/19 07/20/22 History amoxicillin 500 mg tablet 2,000 mg PO .COMPLEX 06/30/20 07/20/22 History ascorbic acid (vitamin C) PO DAILY 06/30/20 07/20/22 History finasteride 5 mg tablet 5 mg PO DAILY #90 tabs 10/27/21 07/20/22 Rx Past Med/Surg History Medical History (Updated 07/23/22 @ 16:54 by Shar Amin DO) H/O actinic keratosis History of basal cell carcinoma Surgical History (Updated 09/04/20 @ 08:47 by Camila Menezes) H/O hernia repair H/O vertebroplasty "T-11, 05/20/07" History of total knee arthroplasty Hx of cholecystectomy Family History (Updated 07/23/22 @ 16:49 by Bekah Ng PA-C) Other Heart disease Hypertension Multiple sclerosis Social History (Updated 09/04/20 @ 08:47 by Camila Menezes) Smoking Status: Never smoker Feels Safe at Home: Yes Review of Systems All systems reviewed & are unremarkable except as noted in HPI & below Physical Exam Constitutional: WD/WN, vitals as above no acute distress and not ill appearing Eyes: PERRL, conjunctivae normal, anicteric sclerae EOM intact bilaterally ENMT: external ear and nose normal, oropharynx normal Ears: no hearing impairment Neck: trachea midline, no thyromegaly Respiratory: normal respiratory effort; no respiratory distress and does not use accessory muscles Cardiovascular: Rate/Rhythm: regular rate and regular rhythm Gastrointestinal (Abdomen): Soft. Very mild left lower quadrant tenderness. No guarding or peritoneal signs. No palpable abnormalities. Skin: no rashes, warm and dry Psychiatric: Orientation: alert, oriented x 3 and cooperative Results & Data Vital Signs (Past 12 Hours) Vital Signs Temp Pulse Resp BP Pulse Ox O2 Del Method 07/23/22 15:00 94 Room Air 07/23/22 15:00 123/62 07/23/22 14:30 95 Room Air 07/23/22 14:00 94 Room Air 07/23/22 14:00 137/62 07/23/22 13:30 95 Room Air 07/23/22 13:00 77 24 93 07/23/22 13:00 111/58 L 07/23/22 12:30 81 24 93 07/23/22 12:14 81 24 95 07/23/22 12:14 131/54 L 07/23/22 11:30 87 25 H 93 Room Air 07/23/22 11:21 87 22 93 Room Air 07/23/22 11:21 137/62 07/23/22 10:46 98 H 23 07/23/22 10:47 99 H 07/23/22 09:58 36.4 C L 119 H 16 156/75 H 96 Room Air
[2022-07-23] MEDS ORDERED: ACETAMINOPHEN 500 MG TAB PO STA (17:20)
[2022-07-23 19:55] LABS: Influenza A virus by PCR Negative (Neg); Influenza B virus by PCR Negative (Neg); RSV by PCR Negative (Neg); SARS CoV2 RNA(COVID-19) Ceph NEGATIVE (Negative)
[2022-07-23] MEDS ORDERED: ACETAMINOPHEN 325 MG TAB PO PRN (21:05)
[2022-07-23] MEDS ORDERED: IBUPROFEN 200 MG TAB PO PRN (21:05)
[2022-07-23] MEDS ORDERED: ONDANSETRON INJ 2 MG/ML 2 ML VIAL IV PRN (21:05)
[2022-07-23] MEDS ORDERED: SODIUM CHLORIDE 0.9% 1000ML 500 ML IV SCH (21:30)
[2022-07-23] MEDS: METOPROLOL TARTRATE 50 MG TAB PO SCH (22:24)
[2022-07-23 22:55] LABS: Basophils % (auto) 0.8 %; Eosinophils % (auto) 0.2 %; Lymphocytes % (auto) 25.5 %; Monocytes % (auto) 7.7 %; Neutrophils % (auto) 54.5 %
[2022-07-23 23:02] LABS: Basophils # (auto) 0.16 K/uL (0-0.2); Eosinophils # (auto) 0.03 K/uL (0-0.50); Lymphocytes # (auto) 4.81 K/uL (1.2-3.4); Monocytes # (auto) 1.46 K/uL (0.11-0.59); Neutrophils # (auto) 10.27 K/uL (1.40-6.50)
[2022-07-24 07:08] LABS: Calcium 8.8 mg/dl (8.6-10.3); Creatinine Clr Calc Pharmacy 122.5 ml/min; Est GFR (African American) 112.1 ml/min; Est GFR (Non-African American) 96.8 ml/min; Potassium 3.9 mmol/L (3.5-5.1)
--- NOTE | 2022-07-24 07:59 | Hospitalist Progress Note ---
Date of Service July 24, 2022 Assessment & Plan (1) Abdominal pain: (2) Splenomegaly: Plan: A CT of the abdomen and pelvis reviewed personally, no bowel wall thickening or obstruction, colonic diverticulosis, no acute diverticulitis, splenomegaly. A few mildly enlarged lymph nodes within the lower chest/upper abdomen as described above. These are new from the prior study. Therefore, 6 month abdomen and pelvis CT follow-up recommended to exclude the possibility of a lymphoproliferative disorder given the associated splenomegaly. -WBC of 20K, negative lactate and procalcitonin -General surgery consulted in ED, per their recommendations no antibiotics at this time - Allowed diet, gentle fluid - stool studies ordered - not collected - LLQ pain improved today -Pain controlled with Tylenol Given leukocytosis (w/o clear sign of infection), splenomegaly, enlarged lymph nodes - concern for lymphoproliferative disorder -Peripheral smear ordered to assess for lymphoproliferative disorder given the splenomegaly seen on scan. -CBC with differential reviewed from outpatient in December 2021 showing elevated white count at that time without known source of infection. - Peripheral smear pending -CBC w/ diff obtained w/ + blasts -Discussed w/ oncology - Dr. Riggins - recommend to also obtain BCR-ABL to eval for possible CML -PT/OT consults (3) BPH loc w/o ur obs/LUTS: Plan: -May continue finasteride -Last PSA from June 2011 was 1.66 (4) Hypertension: Plan: -BP and HR well controlled, continue metoprolol tartrate 50 mg twice daily (5) HLD (hyperlipidemia): Plan: -Continue pravastatin 20 mg daily DVT PPx: - teds, scds CODE: Full code Dispo: Plan to DC home Admission and Anticipated Discharge Date Admission Date: July 23, 2022 Subjective Pt seen in follow up of LLQ abd. pain, leukocytosis 20K, splenomegaly Pt seen by surgery Currently laying in bed, in no acute distress No fevers chills chest pain shortness of breath. Continues to have occasional stabbing pain in the left lower quadrant, says it is better because before it was constant. No BM since coming to the hospital. Denies nausea, was able to have some dinner last evening. Discussed w/ oncology - regarding leukocytosis, splenomegaly, enlarged lymph nodes, blasts. In addition to periph. blood smear, ordered BCR-ABL for poss. 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 Psych: Normal mood and affect Neuro: AAO x 3, speech is fluent, moves extremities Results & Data Results & Data Vital Signs (Past 12 Hours) Vital Signs Temp Pulse Resp BP Pulse Ox O2 Del Method 07/24/22 07:51 37.3 C 85 18 144/79 H 92 Room Air 07/23/22 21:30 37.0 C 85 18 155/74 H 94 Room Air 07/23/22 22:22 88 131/73 Laboratory Results 07/24/22 07/24/22 07/24/22 Range/Units 10:17 10:17 06:09 WBC (4.8-10.8) K/ul RBC (4.70-6.10) M/uL Hgb (14.0-18.0) g/dl Hct (42.0-52.0) % MCV (80.0-100.0) fL MCH (25.0-34.0) pg MCHC (32.0-36.0) g/dL RDW Std Deviation (36.4-46.3) fL RDW Coeff of Siva (11.5-14.5) % Plt Count (130-400) K/uL MPV (9.4-12.4) fL Neut % (Auto) % Lymph % (Auto) % [place] % (Auto) % Eos % (Auto) % Baso % (Auto) % Neut # (Auto) (1.40-6.50) K/uL Lymph # (Auto) (1.2-3.4) K/uL [place] # (Auto) (0.11-0.59) K/uL Eos # (Auto) (0-0.50) K/uL Baso # (Auto) (0-0.2) K/uL Immature Gran # (Auto) (0.01-0.20) K/uL Absolute Nucleated RBC (0-0.12) K/uL Nucleated RBC % (auto) % Neutrophils % (Manual) % Lymphocytes % (Manual) % Reactive Lymphs % (Man) % Monocytes % (Manual) % Metamyelocytes % (Man) % Myelocytes % (Man) % Blast Cells % (Manual) % Neutrophils # (Manual) (1.40-6.50) K/uL Total Absolute Neuts (1.4-6.5) K/uL Lymphocytes # (Manual) (1.2-3.4) K/uL Reactive Lymphs # K/uL Total Abs Lymphocytes (1.2-3.4) K/uL Monocytes # (Manual) (0.11-0.59) K/uL Metamyelocytes # (Man) (0-0) K/uL Myelocytes # (Manual) (0-0) K/uL Blast Cells # (Man) (0-0) K/uL Hypogranular Neuts RBC Morphology Polychromasia Peripher Smr Path Cons Sodium 140 (136-145) mmol/L Potassium 3.9 (3.5-5.1) mmol/L Chloride 105 (98-107) mmol/L Carbon Dioxide 29 (21-32) mmol/L Anion Gap 6 (3-11) BUN 11 (6-23) mg/dl Creatinine 0.50 L (0.6-1.4) mg/dl Est Cr Clr Drug Dosing 122.5 ml/min Est GFR ( Amer) 112.1 ml/min Est GFR (Non-Af Amer) 96.8 ml/min BUN/Creatinine Ratio 22.0 H (10-20) Glucose 97 (70-99(Fasting)) mg/dl Lactate (0.4-2.0) mmol/L Calcium 8.8 (8.6-10.3) mg/dl Ferritin Pending Total Bilirubin (0.2-1.0) mg/dl AST (13-39) U/L ALT (7-52) U/L Alkaline Phosphatase (34-104) U/L Total Protein (6.0-8.3) gm/dl Albumin (3.4-5.0) gm/dl Globulin (2.5-4.0) gm/dl Albumin/Globulin Ratio (0.9-2) Lipase (11-82) U/L Vitamin B12 Folate Procalcitonin (0-0.5) ng/ml Urine Color Urine Appearance (Clear) Urine pH (4.5-7.5) Ur Specific [place] (1.000-1.030) Urine Protein (Negative) Urine Glucose (UA) (Negative) Urine Ketones (Negative) Urine Blood (Negative) Urine Nitrite (Negative) Urine Bilirubin (Negative) Urine Urobilinogen (Negative) Ur Leukocyte Esterase (Negative) SARS-CoV-2 (PCR) (Negative) Influenza Type A (PCR) (Neg) Influenza Type B (PCR) (Neg) RSV (RT-PCR) (Neg) BCR/abl Pending BCR/abl t(9;22) (FISH) Pending 07/24/22 07/23/22 07/23/22 Range/Units 06:09 18:41 15:08 WBC 17.79 H (4.8-10.8) K/ul RBC 4.17 L (4.70-6.10) M/uL Hgb 11.8 L (14.0-18.0) g/dl Hct 36.2 L (42.0-52.0) % MCV 86.8 (80.0-100.0) fL MCH 28.3 (25.0-34.0) pg MCHC 32.6 (32.0-36.0) g/dL RDW Std Deviation 51.4 H (36.4-46.3) fL RDW Coeff of Siva 16.4 H (11.5-14.5) % Plt Count 109 L (130-400) K/uL MPV 11.9 (9.4-12.4) fL Neut % (Auto) % Lymph % (Auto) % [place] % (Auto) % Eos % (Auto) % Baso % (Auto) % Neut # (Auto) (1.40-6.50) K/uL Lymph # (Auto) (1.2-3.4) K/uL [place] # (Auto) (0.11-0.59) K/uL Eos # (Auto) (0-0.50) K/uL Baso # (Auto) (0-0.2) K/uL Immature Gran # (Auto) (0.01-0.20) K/uL Absolute Nucleated RBC 0.05 (0-0.12) K/uL Nucleated RBC % (auto) 0.3 % Neutrophils % (Manual) 46 % Lymphocytes % (Manual) 30 % Reactive Lymphs % (Man) 13 % Monocytes % (Manual) 3 % Metamyelocytes % (Man) 6 % Myelocytes % (Man) 2 % Blast Cells % (Manual) 1 % Neutrophils # (Manual) 8.18 H (1.40-6.50) K/uL Total Absolute Neuts 8.18 H (1.4-6.5) K/uL Lymphocytes # (Manual) 5.34 H (1.2-3.4) K/uL Reactive Lymphs # 2.31 K/uL Total Abs Lymphocytes 7.65 H (1.2-3.4) K/uL Monocytes # (Manual) 0.53 (0.11-0.59) K/uL Metamyelocytes # (Man) 1.07 H (0-0) K/uL Myelocytes # (Manual) 0.36 H (0-0) K/uL Blast Cells # (Man) 0.18 H (0-0) K/uL Hypogranular Neuts RBC Morphology Unremarkable Polychromasia Peripher Smr Path Cons Cancelled Sodium (136-145) mmol/L Potassium (3.5-5.1) mmol/L Chloride (98-107) mmol/L Carbon Dioxide (21-32) mmol/L Anion Gap (3-11) BUN (6-23) mg/dl Creatinine (0.6-1.4) mg/dl Est Cr Clr Drug Dosing ml/min Est GFR ( Amer) ml/min Est GFR (Non-Af Amer) ml/min BUN/Creatinine Ratio (10-20) Glucose (70-99(Fasting)) mg/dl Lactate (0.4-2.0) mmol/L Calcium (8.6-10.3) mg/dl Ferritin Total Bilirubin (0.2-1.0) mg/dl AST (13-39) U/L ALT (7-52) U/L Alkaline Phosphatase (34-104) U/L Total Protein (6.0-8.3) gm/dl Albumin (3.4-5.0) gm/dl Globulin (2.5-4.0) gm/dl Albumin/Globulin Ratio (0.9-2) Lipase (11-82) U/L Vitamin B12 Folate Procalcitonin (0-0.5) ng/ml Urine Color Urine Appearance (Clear) Urine pH (4.5-7.5) Ur Specific [place] (1.000-1.030) Urine Protein (Negative) Urine Glucose (UA) (Negative) Urine Ketones (Negative) Urine Blood (Negative) Urine Nitrite (Negative) Urine Bilirubin (Negative) Urine Urobilinogen (Negative) Ur Leukocyte Esterase (Negative) SARS-CoV-2 (PCR) NEGATIVE (Negative) Influenza Type A (PCR) Negative (Neg) Influenza Type B (PCR) Negative (Neg) RSV (RT-PCR) Negative (Neg) BCR/abl BCR/abl t(9;22) (FISH) 07/23/22 07/23/22 07/23/22 Range/Units 15:08 12:05 11:19 WBC 19.24 H (4.8-10.8) K/ul RBC 4.22 L (4.70-6.10) M/uL Hgb 11.7 L (14.0-18.0) g/dl Hct 35.7 L (42.0-52.0) % MCV 84.6 (80.0-100.0) fL MCH 27.7 (25.0-34.0) pg MCHC 32.8 (32.0-36.0) g/dL RDW Std Deviation 48.9 H (36.4-46.3) fL RDW Coeff of Siva 16.0 H (11.5-14.5) % Plt Count 102 L (130-400) K/uL MPV 11.9 (9.4-12.4) fL Neut % (Auto) 54.5 % Lymph % (Auto) 25.5 % [place] % (Auto) 7.7 % Eos % (Auto) 0.2 % Baso % (Auto) 0.8 % Neut # (Auto) 10.27 H (1.40-6.50) K/uL Lymph # (Auto) 4.81 H (1.2-3.4) K/uL [place] # (Auto) 1.46 H (0.11-0.59) K/uL Eos # (Auto) 0.03 (0-0.50) K/uL Baso # (Auto) 0.16 (0-0.2) K/uL Immature Gran # (Auto) 11.30 H (0.01-0.20) K/uL Absolute Nucleated RBC 0.03 (0-0.12) K/uL Nucleated RBC % (auto) 0.2 % Neutrophils % (Manual) % Lymphocytes % (Manual) % Reactive Lymphs % (Man) % Monocytes % (Manual) % Metamyelocytes % (Man) % Myelocytes % (Man) % Blast Cells % (Manual) % Neutrophils # (Manual) (1.40-6.50) K/uL Total Absolute Neuts (1.4-6.5) K/uL Lymphocytes # (Manual) (1.2-3.4) K/uL Reactive Lymphs # K/uL Total Abs Lymphocytes (1.2-3.4) K/uL Monocytes # (Manual) (0.11-0.59) K/uL Metamyelocytes # (Man) (0-0) K/uL Myelocytes # (Manual) (0-0) K/uL Blast Cells # (Man) (0-0) K/uL Hypogranular Neuts RBC Morphology Polychromasia Peripher Smr Path Cons Pending Sodium (136-145) mmol/L Potassium (3.5-5.1) mmol/L Chloride (98-107) mmol/L Carbon Dioxide (21-32) mmol/L Anion Gap (3-11) BUN (6-23) mg/dl Creatinine (0.6-1.4) mg/dl Est Cr Clr Drug Dosing ml/min Est GFR ( Amer) ml/min Est GFR (Non-Af Amer) ml/min BUN/Creatinine Ratio (10-20) Glucose (70-99(Fasting)) mg/dl Lactate 2.0 (0.4-2.0) mmol/L Calcium (8.6-10.3) mg/dl Ferritin Total Bilirubin (0.2-1.0) mg/dl AST (13-39) U/L ALT (7-52) U/L Alkaline Phosphatase (34-104) U/L Total Protein (6.0-8.3) gm/dl Albumin (3.4-5.0) gm/dl Globulin (2.5-4.0) gm/dl Albumin/Globulin Ratio (0.9-2) Lipase (11-82) U/L Vitamin B12 Folate Procalcitonin (0-0.5) ng/ml Urine Color Dark Yellow Urine Appearance Clear (Clear) Urine pH 5.0 (4.5-7.5) Ur Specific [place] 1.035 H (1.000-1.030) Urine Protein Negative (Negative) Urine Glucose (UA) Negative (Negative) Urine Ketones Negative (Negative) Urine Blood Negative (Negative) Urine Nitrite Negative (Negative) Urine Bilirubin Negative (Negative) Urine Urobilinogen Negative (Negative) Ur Leukocyte Esterase Negative (Negative) SARS-CoV-2 (PCR) (Negative) Influenza Type A (PCR) (Neg) Influenza Type B (PCR) (Neg) RSV (RT-PCR) (Neg) BCR/abl BCR/abl t(9;22) (FISH) 07/23/22 07/23/22 07/23/22 Range/Units 11:06 10:41 10:41 WBC (4.8-10.8) K/ul RBC (4.70-6.10) M/uL Hgb (14.0-18.0) g/dl Hct (42.0-52.0) % MCV (80.0-100.0) fL MCH (25.0-34.0) pg MCHC (32.0-36.0) g/dL RDW Std Deviation (36.4-46.3) fL RDW Coeff of Siva (11.5-14.5) % Plt Count (130-400) K/uL MPV (9.4-12.4) fL Neut % (Auto) % Lymph % (Auto) % [place] % (Auto) % Eos % (Auto) % Baso % (Auto) % Neut # (Auto) (1.40-6.50) K/uL Lymph # (Auto) (1.2-3.4) K/uL [place] # (Auto) (0.11-0.59) K/uL Eos # (Auto) (0-0.50) K/uL Baso # (Auto) (0-0.2) K/uL Immature Gran # (Auto) (0.01-0.20) K/uL Absolute Nucleated RBC (0-0.12) K/uL Nucleated RBC % (auto) % Neutrophils % (Manual) 63 % Lymphocytes % (Manual) 22 % Reactive Lymphs % (Man) % Monocytes % (Manual) % Metamyelocytes % (Man) 8 % Myelocytes % (Man) 7 % Blast Cells % (Manual) % Neutrophils # (Manual) 12.76 H (1.40-6.50) K/uL Total Absolute Neuts 12.76 H (1.4-6.5) K/uL Lymphocytes # (Manual) 4.46 H (1.2-3.4) K/uL Reactive Lymphs # K/uL Total Abs Lymphocytes 4.46 H (1.2-3.4) K/uL Monocytes # (Manual) (0.11-0.59) K/uL Metamyelocytes # (Man) 1.62 H (0-0) K/uL Myelocytes # (Manual) 1.42 H (0-0) K/uL Blast Cells # (Man) (0-0) K/uL Hypogranular Neuts 1+ RBC Morphology Polychromasia 1+ Peripher Smr Path Cons Sodium 139 (136-145) mmol/L Potassium 3.7 (3.5-5.1) mmol/L Chloride 103 (98-107) mmol/L Carbon Dioxide 28 (21-32) mmol/L Anion Gap 8 (3-11) BUN 15 (6-23) mg/dl Creatinine 0.62 (0.6-1.4) mg/dl Est Cr Clr Drug Dosing 100.0 ml/min Est GFR ( Amer) 102.7 ml/min Est GFR (Non-Af Amer) 88.6 ml/min BUN/Creatinine Ratio 24.2 H (10-20) Glucose 163 H (70-99(Fasting)) mg/dl Lactate (0.4-2.0) mmol/L Calcium 9.3 (8.6-10.3) mg/dl Ferritin Total Bilirubin 1.0 (0.2-1.0) mg/dl AST 19 (13-39) U/L ALT 9 (7-52) U/L Alkaline Phosphatase 63 (34-104) U/L Total Protein 6.8 (6.0-8.3) gm/dl Albumin 3.9 (3.4-5.0) gm/dl Globulin 2.9 (2.5-4.0) gm/dl Albumin/Globulin Ratio 1.3 (0.9-2) Lipase 15 (11-82) U/L Vitamin B12 Pending Folate Pending Procalcitonin (0-0.5) ng/ml Urine Color Urine Appearance (Clear) Urine pH (4.5-7.5) Ur Specific [place] (1.000-1.030) Urine Protein (Negative) Urine Glucose (UA) (Negative) Urine Ketones (Negative) Urine Blood (Negative) Urine Nitrite (Negative) Urine Bilirubin (Negative) Urine Urobilinogen (Negative) Ur Leukocyte Esterase (Negative) SARS-CoV-2 (PCR) (Negative) Influenza Type A (PCR) (Neg) Influenza Type B (PCR) (Neg) RSV (RT-PCR) (Neg) BCR/abl BCR/abl t(9;22) (FISH) 07/23/22 Range/Units 10:40 WBC (4.8-10.8) K/ul RBC (4.70-6.10) M/uL Hgb (14.0-18.0) g/dl Hct (42.0-52.0) % MCV (80.0-100.0) fL MCH (25.0-34.0) pg MCHC (32.0-36.0) g/dL RDW Std Deviation (36.4-46.3) fL RDW Coeff of Siva (11.5-14.5) % Plt Count (130-400) K/uL MPV (9.4-12.4) fL Neut % (Auto) % Lymph % (Auto) % [place] % (Auto) % Eos % (Auto) % Baso % (Auto) % Neut # (Auto) (1.40-6.50) K/uL Lymph # (Auto) (1.2-3.4) K/uL [place] # (Auto) (0.11-0.59) K/uL Eos # (Auto) (0-0.50) K/uL Baso # (Auto) (0-0.2) K/uL Immature Gran # (Auto) (0.01-0.20) K/uL Absolute Nucleated RBC (0-0.12) K/uL Nucleated RBC % (auto) % Neutrophils % (Manual) % Lymphocytes % (Manual) % Reactive Lymphs % (Man) % Monocytes % (Manual) % Metamyelocytes % (Man) % Myelocytes % (Man) % Blast Cells % (Manual) % Neutrophils # (Manual) (1.40-6.50) K/uL Total Absolute Neuts (1.4-6.5) K/uL Lymphocytes # (Manual) (1.2-3.4) K/uL Reactive Lymphs # K/uL Total Abs Lymphocytes (1.2-3.4) K/uL Monocytes # (Manual) (0.11-0.59) K/uL Metamyelocytes # (Man) (0-0) K/uL Myelocytes # (Manual) (0-0) K/uL Blast Cells # (Man) (0-0) K/uL Hypogranular Neuts RBC Morphology Polychromasia Peripher Smr Path Cons Sodium (136-145) mmol/L Potassium (3.5-5.1) mmol/L Chloride (98-107) mmol/L Carbon Dioxide (21-32) mmol/L Anion Gap (3-11) BUN (6-23) mg/dl Creatinine (0.6-1.4) mg/dl Est Cr Clr Drug Dosing ml/min Est GFR ( Amer) ml/min Est GFR (Non-Af Amer) ml/min BUN/Creatinine Ratio (10-20) Glucose (70-99(Fasting)) mg/dl Lactate (0.4-2.0) mmol/L Calcium (8.6-10.3) mg/dl Ferritin Total Bilirubin (0.2-1.0) mg/dl AST (13-39) U/L ALT (7-52) U/L Alkaline Phosphatase (34-104) U/L Total Protein (6.0-8.3) gm/dl Albumin (3.4-5.0) gm/dl Globulin (2.5-4.0) gm/dl Albumin/Globulin Ratio (0.9-2) Lipase (11-82) U/L Vitamin B12 Folate Procalcitonin < 0.05 (0-0.5) ng/ml Urine Color Urine Appearance (Clear) Urine pH (4.5-7.5) Ur Specific [place] (1.000-1.030) Urine Protein (Negative) Urine Glucose (UA) (Negative) Urine Ketones (Negative) Urine Blood (Negative) Urine Nitrite (Negative) Urine Bilirubin (Negative) Urine Urobilinogen (Negative) Ur Leukocyte Esterase (Negative) SARS-CoV-2 (PCR) (Negative) Influenza Type A (PCR) (Neg) Influenza Type B (PCR) (Neg) RSV (RT-PCR) (Neg) BCR/abl BCR/abl t(9;22) (FISH) Medications Administered Current Inpatient Medications Acetaminophen (Acetaminophen 325 Mg Tab) 650 mg PO Q4H PRN PRN Reason: Moderate Pain (Scale 4, 5, 6) Stop: 08/22/22 21:04 Finasteride (Finasteride 5 Mg Tab) 5 mg PO DAILY [facility] Stop: 08/23/22 08:59 Ibuprofen (Ibuprofen 200 Mg Tab) 400 mg PO Q4H PRN PRN Reason: Pain Stop: 08/22/22 21:04 Metoprolol Tartrate (Metoprolol Tartrate 50 Mg Tab) 50 mg PO BID [facility] Stop: 08/22/22 21:04 Last Admin: 07/23/22 22:24 Dose: 50 mg Multivitamins (Multivitamin Tab) 1 tab PO DAILY [facility] Stop: 08/23/22 08:59 Ondansetron HCl (Ondansetron Inj 2 Mg/Ml 2 Ml Vial) 4 mg IV Q4H PRN PRN Reason: Nausea And Vomiting Stop: 08/22/22 21:04 Pravastatin Sodium (Pravastatin Sod 20 Mg Tab) 20 mg PO QAM [facility] Stop: 08/23/22 08:59
[2022-07-24] MEDS ORDERED: PRAVASTATIN SOD 20 MG TAB PO SCH (09:00)
[2022-07-24] MEDS ORDERED: MULTIVITAMIN TAB PO SCH (09:00)
--- NOTE | 2022-07-24 09:08 | Oncology Consultation ---
Date of Consultation July 24, 2022 Assessment & Plan (1) Splenomegaly: (2) Leukocytosis: (3) Lymphadenopathy: (4) Anemia: Plan Pleasant 87-year-old gentleman who presented with lower abdominal pain and was found to have leukocytosis with differential revealing metamyelocytes, myelo cytes. Although Leukocytosis could be reactive/due to infection, would recommend ruling out hematologic malignancy in the setting of splenomegaly and mild lymphadenopathy .Would have expected eosinophilia/basophilia if he has CML. However, he has metamyelocytes and myelocytes as well as splenomegaly which is concerning for CML or other myeloproliferative neoplasm -Recommend peripheral smear review by pathology (based on results, may need flow cytometry). Will also obtain BCR/ABL FISH studies to evaluate for CML. If this is negative, would need further work-up including testing for JAK2, MPL/CALR mutations and may need a bone marrow biopsy if leukocytosis persists -Iron, B12 and folate levels to evaluate for nutritional causes of anemia -Can follow-up with [facility] outpatient to discuss results of above testing History of Present Illness Reason for Consultation: Leukocytosis Attending Physician: Graeme Beach MD History of Present Illness 87-year-old gentleman who presented to the ED at [facility] with left lower quadrant abdominal pain. CBC obtained while in the ED revealed leukocytosis with white cell count of 20,000, thrombocytopenia with platelet count of 10 9000 and mild anemia with hemoglobin of 12.9. Manual WBC differential revealed neutrophilia with ANC of 12.76, slightly elevated lymphocytes of 4.46, metamyelocytes of 1.62, myelocytes of 1.42. There is no mention of basophilia or eosinophilia.CT abdomen and pelvis revealed splenomegaly with spleen size of 15.5 as well as mildly enlarged lymph nodes within the lower chest/upper abdomen for which 6-month follow-up was recommended to rule out lymphoproliferative disorder. Allergies Allergy/AdvReac Type Severity Reaction Status Date / Time No Known Allergies Allergy Verified 07/20/22 13:25 Home Medications Medication Instructions Recorded Confirmed Type docusate sodium 100 mg capsule 100 mg PO BID 06/27/19 07/23/22 History metoprolol tartrate 50 mg tablet 50 mg PO BID 06/27/19 07/23/22 History pravastatin 20 mg tablet 20 mg PO QAM 06/27/19 07/23/22 History amoxicillin 500 mg tablet 2,000 mg PO .COMPLEX 06/30/20 07/23/22 History ascorbic acid (vitamin C) 500 mg PO DAILY 06/30/20 07/23/22 History finasteride 5 mg tablet 5 mg PO DAILY #90 tabs 10/27/21 07/23/22 Rx ibuprofen 200 mg tablet 400 mg PO Q4H PRN Pain 07/23/22 07/23/22 History multivitamin 1 tab PO DAILY 07/23/22 07/23/22 History Patient History Medical History H/O actinic keratosis History of basal cell carcinoma Surgical History H/O hernia repair H/O vertebroplasty "T-, 05/20/07" History of total knee arthroplasty Hx of cholecystectomy Family History Other Heart disease Hypertension Multiple sclerosis Social History Smoking Status: Never smoker Hx Alcohol Use: No Hx Substance Use: No Preferred Language: Hebrew Communication Ability: Effective Community Living Coach Required: No Beliefs That Will Affect Care: None Current Living Situation: Alone Current Living Situation Comment: lives alone at home Other Information That Helps Us Care for You: No Feels Safe at Home: Yes Safety Concerns: Feels Safe At This Time Assistive Devices: Cane Physical Exam Constitutional: WD/WN, vitals as above Eyes: PERRL, conjunctivae normal, anicteric sclerae ENMT: external ear and nose normal, oropharynx normal Respiratory: normal respiratory effort, lungs clear to auscultation Cardiovascular: RRR, no murmur, no edema Gastrointestinal (Abdomen): normal bowel sounds, soft, nontender, no hepatosplenomegaly Results & Data Vital Signs (Past 12 Hours) Vital Signs Temp Pulse Resp BP Pulse Ox O2 Del Method 07/24/22 07:51 37.3 C 85 18 144/79 H 92 Room Air 07/23/22 21:30 37.0 C 85 18 155/74 H 94 Room Air 07/23/22 22:22 88 131/73
[2022-07-24 09:34] LABS: Hematocrit (blood only) 36.2 % (42.0-52.0); Hemoglobin 11.8 g/dl (14.0-18.0); Mean Corpuscular Hemoglobin 28.3 pg (25.0-34.0); Mean Corpuscular Hgb Conc 32.6 g/dL (32.0-36.0); Mean Corpuscular Volume 86.8 fL (80.0-100.0); Mean Platelet Volume 11.9 fL (9.4-12.4); Nucleated RBC # (auto) 0.05 K/uL (0-0.12); Nucleated RBC % (auto) 0.3 %; Platelet Count 109 K/uL (130-400); RDW Coefficient of Variation 16.4 % (11.5-14.5); RDW Standard Deviation 51.4 fL (36.4-46.3); Red Blood Count 4.17 M/uL (4.70-6.10); White Blood Count 17.79 K/ul (4.8-10.8)
[2022-07-24 09:44] LABS: ALC (manual) 7.65 K/uL (1.2-3.4); ANC (manual) 8.18 K/uL (1.4-6.5); Blast # (manual) 0.18 K/uL (0-0); Blast Cells % (manual) 1 %; Lymphocytes # (manual) 5.34 K/uL (1.2-3.4); Lymphocytes % (manual) 30 %; Metamyelocytes # (manual) 1.07 K/uL (0-0); Metamyelocytes % (manual) 6 %; Monocytes # (manual) 0.53 K/uL (0.11-0.59); Monocytes % (manual) 3 %; Myelocytes # (manual) 0.36 K/uL (0-0); Myelocytes % (manual) 2 %; Neutrophils # (manual) 8.18 K/uL (1.40-6.50); Neutrophils % (manual) 46 %; RBC Morphology Unremarkable; Reactive Lymphocytes # (manual) 2.31 K/uL; Reactive Lymphocytes % (manual) 13 %
[2022-07-24] MEDS: METOPROLOL TARTRATE 50 MG TAB PO SCH (09:58)
[2022-07-24] MEDS: FINASTERIDE 5 MG TAB PO SCH ×2 (09:58→11:57)
[2022-07-24] MEDS ORDERED: Nursing to Pharmacy Communication SCH (11:00)
[2022-07-24 11:15] LABS: Ferritin 355.8 ng/ml (8-388)
--- NOTE | 2022-07-24 11:38 | Surgery Progress Note ---
Date of Service July 24, 2022 Assessment & Plan (1) Leukocytosis: (2) Abdominal pain: Plan: No surgical indications. Has already been seen by hematology. We will reorder his diet. Okay from our standpoint for discharge. No surgical follow-up needed. Admission and Anticipated Discharge Date Admission Date: July 23, 2022 Subjective Patient seen. Feeling well. No return of his acute abdominal pain. He is hungry. Physical Exam Constitutional: WD/WN, vitals as above no acute distress and not ill appearing Eyes: PERRL, conjunctivae normal, anicteric sclerae EOM intact bilaterally ENMT: external ear and nose normal, oropharynx normal Ears: no hearing impairment Neck: trachea midline, no thyromegaly Respiratory: normal respiratory effort; no respiratory distress and does not use accessory muscles Cardiovascular: Rate/Rhythm: regular rate and regular rhythm Gastrointestinal (Abdomen): Soft. Very mild left mid abdominal tenderness. No guarding rebound or rigidity Skin: no rashes, warm and dry Psychiatric: Orientation: alert, oriented x 3 and cooperative Results & Data Vital Signs (Past 12 Hours) Vital Signs Temp Pulse Resp BP Pulse Ox O2 Del Method 07/24/22 07:51 37.3 C 85 18 144/79 H 92 Room Air PG Care Time/CCT Total # of Minutes Spent Total Time Spent with Patient: Total time spent is greater than 50% in coordination of care (as documented) at patient's floor/unit and/or counseling patient: Coding Level of Care Code 23854 SUB INP/OBS CARE 2/35MIN Diagnoses Leukocytosis D72.829 Abdominal pain R10.9
[2022-07-24 11:45] LABS: Vitamin B12 > 1500 pg/ml (180-914)
--- NOTE | 2022-07-24 12:20 | Discharge Summary ---
Date of Service July 24, 2022 Admission HPI Per Admitting Provider This is a 87 yo M with PMHx of HTN, BPH, lumbar spinal stenosis, history of diverticulosis of the colon, history of spinal compression fracture and status post lumbar spine surgery for decompression of spinal cord in 2017 (hx of two separate surgeries) , who presents to the hospital with acute onset of left lower quadrant abdominal pain x2 days. He reports getting up a few times overnight and thought that possibly pulled a muscle in his left side. He had put some ointment on it but did not seem to do anything for him. Patient did received IV Tylenol 1000 mg in the ER which seemed to significantly improve his pain. He reports it is currently a 5/10, and coming back after my examination with palpation of his abdomen. He denies any fever and chills but does get sweats with minimal ADLs and this has been ongoing for a few years. Denies any nausea or vomiting, and has not eaten anything today. He had 3 BMs yesterday, once he had to strain, then normal, then the last time was loose. Patient states when this happens then he will not have any bowel movement for 24 hours afterwards, then restarts. He does take stool softener twice daily at home. He admits to having an anal fissure and sometimes see bright red blood. He denies any large amount of bright blood in the bowel, no dark tarry bowel movements. Pt denies any recent changes in diet. [facility]. He has not been out and about much, denies any recent viral illnesses, no known tick bites, no recent sick contacts. He lives at home by himself and is independent, cooks and cleans for himself. His daughter, Yoli, lives in [facility]. He has a PCP appointment upcoming this Tuesday. Denies alcohol or smoking use. Admission Exam Per Admitting Provider General: awake, alert, no apparent distress Head: Normocephalic, atraumatic ENT: PERRL, EOMI, no pharyngeal exudate, mucous membranes moist Chest: Clear to auscultation, on room air, no adventitious breath sounds Cardiac: Regular rate and rhythm, no murmur, no JVD, normal peripheral pulses, good capillary refill Back: Normal curvature of the spine, no CVA tenderness Abdominal: NABS x 4 quadrants, soft, nondistended, + LLQ tender to palpation, + palpable splenomegaly, no rebound or guarding Extremities: Normal inspection, 1+ peripheral edema BLE, no erythema Skin: Multiple actinic keratoses over extremities, back, rajan hemangiomas on trunk Psych: Normal mood and affect Neuro: AAO x 3, strength intact bilaterally and rated 5/5, no motor deficits, speech is clear, no peripheral sensory deficits. Gait from bed to bathroom witnessed, uses cane, steady on his feet. Principal Diagnosis LLQ abd. pain Leukocytosis, Splenomegaly - concern for hematologic malignancy Discharge Exam General: obese elderly M in NAD Head: Normocephalic, atraumatic ENT: PERRL, EOMI Chest: Clear to auscultation, on room air, no adventitious breath sounds Cardiac: Regular rate and rhythm, no murmur, no JVD Abdominal: NABS x 4 quadrants, soft, nondistended, + LLQ mildly tender to palpation (improved), + splenomegaly Extremities: Normal inspection, 1+ peripheral edema BLE, no erythema Skin: warm, dry Psych: Normal mood and affect Neuro: AAO x 3, speech is fluent, moves extremities Discharge Data Allergies Allergy/AdvReac Type Severity Reaction Status Date / Time No Known Allergies Allergy Verified 07/20/22 13:25 Consultations 07/23/22 16:47 ED Decision to Admit Stat 07/23/22 21:05 Consult General Surgery Routine 07/24/22 09:06 Consult Oncology Routine Ordered Studies 07/23/22 12:53 CT abd pelvis IV con only Stat FINDINGS: Mild dependent changes seen at the lung bases. No pneumoperitoneum. No pneumatosis. Old compression deformities and vertebroplasty is again noted within the thoracic and lumbar spine. No acute fractures identified. There are 2 adjacent right paravertebral nodules at the T10 level with the largest measuring 13 mm. This is best seen on image 55. This is new from the prior study. These are indeterminate could represent small lymph nodes. Subcentimeter left anterior diaphragmatic lymph nodes are also noted. There is a 2 cm sebaceous cyst within the left inguinal region. Cholecystectomy. The spleen is enlarged measuring 15.5 cm in length. Multiple calcified splenic granulomas are noted. The main portal vein is patent. The liver, pancreas, and right adrenal gland are unremarkable. Mild nodular thickening of the left adrenal gland. Normal left kidney. A few subcentimeter hypodense lesions within the right kidney which are too small to characterize. No hydronephrosis. 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 This remains unchanged. Single mildly enlarged gastrohepatic lymph node on image 123 which measures 18 x 11 mm. This has increased in size. Otherwise, no retroperitoneal or pelvic lymphadenopathy. No mesenteric lymphadenopathy. Moderate calcified plaque within the normal caliber abdominal aorta and iliac arteries. The prostate gland is mildly enlarged. No bladder wall thickening. The small anterior bladder diverticulum. No pelvic free fluid. A few colonic diverticula. No evidence for acute diverticulitis. No bowel wall thickening or obstruction. Normal appendix. IMPRESSION: 1. No bowel wall thickening or obstruction. 2. Normal appendix. 3. Colonic diverticulosis. No evidence for acute diverticulitis. 4. Splenomegaly. 5. A few mildly enlarged lymph nodes within the lower chest/upper abdomen as described above. These are new from the prior study. Therefore, 6 month abdomen and pelvis CT follow-up recommended to exclude the possibility of a lymphoproliferative disorder given the associated splenomegaly. ACT 112: Positive. There are findings on this exam that require communication between the performing entity and the patient following Patient Test Result Information Act ([place] Act 112) guidelines. Hospital Course (1) Abdominal pain: (2) Splenomegaly: A CT of the abdomen and pelvis reviewed personally, no bowel wall thickening or obstruction, colonic diverticulosis, no acute diverticulitis, splenomegaly. A few mildly enlarged lymph nodes within the lower chest/upper abdomen as described above. These are new from the prior study. Therefore, 6 month abdomen and pelvis CT follow-up recommended to exclude the possibility of a lymphop roliferative disorder given the associated splenomegaly. -WBC of 20K, negative lactate and procalcitonin -General surgery consulted in ED, per their recommendations no antibiotics at this time - Allowed diet, gentle fluid - stool studies ordered - not collected - LLQ pain improved today -Pain controlled with Tylenol - Re-examined by gen. surgery today - pt improved, and ok to discharge Given leukocytosis (w/o clear sign of infection), splenomegaly, enlarged lymph nodes - concern for lymphoproliferative disorder -Peripheral smear ordered to assess for lymphoproliferative disorder given the splenomegaly seen on scan. -CBC with differential reviewed from outpatient in December 2021 showing elevated white count at that time without known source of infection. - Peripheral smear pending -CBC w/ diff obtained w/ + blasts -Discussed w/ oncology - Dr. Riggins - recommend to also obtain BCR-ABL to eval for possible CML -Dr. Riggins to follow up with the pt as outpt and will go over the results of his tests done here. (3) BPH loc w/o ur obs/LUTS: -May continue finasteride -Last PSA from June 2011 was 1.66 (4) Hypertension: -BP and HR well controlled, continue metoprolol tartrate 50 mg twice daily (5) HLD (hyperlipidemia): -Continue pravastatin 20 mg daily Total Time Total Time Spent Total Time Spent (In Minutes): 40 Discharge Plan Discharge Items Patient Disposition: Home - Self-Care Reason For Visit: ABDOMINAL PAIN, LEUKOCYTOSIS, SPLENOMEGALY Discharge Diagnosis: LLQ abd. pain Leukocytosis, Splenomegaly - concern for hematologic malignancy Activity: Per Instructions section Non-emergency contact: Primary Care Provider and Oncologist Call non-emergency contact if: you have any medication questions and your symptoms worsen Follow-up/Referrals: Louis Combs MD [Primary Care Provider] - Diet: Regular Addtl Attending Provider Instructions: Follow-up with your primary care physician within 1 week. Follow-up with oncologist, Dr. Riggins, to go over test results from the hospital. No medication changes were made in the hospital. Pending Studies at Discharge: Yes Studies:: peripheral smear BCR-ABL Stand-Alone Forms: My [facility], Smoking Cessation Medications and DC Order Prescriptions: Continued finasteride 5 mg tablet 5 mg PO DAILY Qty: 90 3RF pravastatin 20 mg tablet 20 mg PO QAM docusate sodium 100 mg capsule 100 mg PO BID metoprolol tartrate 50 mg tablet 50 mg PO BID ascorbic acid (vitamin C) 500 mg PO DAILY amoxicillin 500 mg tablet 2,000 mg PO .COMPLEX Rx Instructions: 2,000 mg PO prior to dental procedures; multivitamin Tablet 1 tab PO DAILY ibuprofen 200 mg Tablet 400 mg PO Q4H PRN (Reason: Pain) Discharge Orders: Discharge Order (Routine); Ordered 07/24/22 Ordered By: Graeme Beach Admission Data Admit Date/Time: 07/23/22 16:56 Attending Provider: Graeme Beach Admit Provider: Graeme Beach Primary Care Provider: Louis Combs Other Providers: Shar Amin ; Dary Riggins
[2022-07-24] MEDS ORDERED: FINASTERIDE 5 MG TAB PO SCH (21:00)
== END 2022-07-24 14:05 | disposition home or self-care (01) ==
LOC: ED 09:57 → INTOOBSV 16:56 → 3W 16:56